=== PATIENT | male | born 1940 | race Caucasian/White ===

== ENCOUNTER 2017-06-23 13:05 | Observation (INO) | payer MEDICARE, SELFPAY ==
--- NOTE | 2017-06-23 15:11 | XR_ITS ---
XR chest 2V HISTORY: ITS.REASON: fever and respiratory infection ORDERING PHYSICIAN: Jamir Schumacher MD PATIENT AGE: 76 years COMPARISON: 05/14/2014 FINDINGS: The cardiomediastinal silhouette and pulmonary vascularity are within normal limits. The lungs are clear without infiltrates, suspicious nodules, or pleural effusions. Mild degenerative changes in the midthoracic spine.. IMPRESSION: No change with no acute finding
[2017-06-23 15:12] VITALS: BMI 28.1
[2017-06-23 15:35] LABS: Basophils # 0.1 K/mm3 (0-0.2); Basophils % 1.6 % (0.1-2.0); Eosinophils # 0.1 K/mm3 (0.0-0.4); Eosinophils % 2.3 % (0.1-12.0); Hemoglobin 13.2 g/dL (14.1-18.0); Lymphocytes # 1.3 K/mm3 (0.7-4.5); Lymphocytes % 27.3 K/mm3 (10-50); Mean Corpuscular HGB Conc 33.7 g/dL (31.8-35.4); Mean Corpuscular Hemoglobin 29.6 pg (27.0-31.2); Mean Corpuscular Volume 87.7 fl (80-94); Mean Platelet Volume 9.3 fl (7.4-10.4); Monocytes # 0.4 K/mm3 (0.1-1.0); Monocytes % 8.8 % (1.7-9.3); Neutrophils # 2.9 K/mm3 (1.8-7.8); Neutrophils % 59.9 % (37.0-80.0); Platelet Count 73 K/mm3 (142-424); Red Blood Count 4.44 M/mm3 (4.60-6.20); Red Cell Distribution Width 13.5 % (11.5-17.5); White Blood Count 4.9 K/mm3 (4.8-10.8)
--- NOTE | 2017-06-23 15:40 | HMH.HP ---
*Admission Date: 06/23/17 <Lucia Cleary 06/23/17 15:53> *Chief complaint: 1540 <Lucia Cleary 06/23/17 15:53> *History of present illness: Mr George is a 76 year old male with history of DM, HTN, OA and BPH who has not felt well for several weeks. He went to the [facility] 06/20/17 and was started on a Z pac, ear gtts for OM, and received injections of Depo Medrol and Rocephin as well as Tessalon Pearls for a persistant cough. He describes sweats and chilling, sputum production, SOB and headaches. He has also had some tightness in his chest. He describes minimal PO intake and has not been taking any of his meds. He presented to [facility] for evaluation on the day of admission. Due to his failure to improve as an outpatient and his dehydrated state, he was admitted for IVF and further evaluation and treatment. <Lucia Cleary 06/23/17 15:53> [facility] History Medical History: Reports:: Diabetes Mellitus Type 2, Hyperlipidemia, Hypertension Denies:: Cancer, MRSA <Lucia Cleary 06/23/17 15:53> Comment: BPH <Lucia Cleary 06/23/17 15:53> Laterality Cases: Bilateral: Myringotomy (Ear Tubes) <Lucia Cleary 06/23/17 15:53> Other Surgeries: Yes: Colonoscopy, Hernia Repair, Other (cholecystectomy) <Lucia Cleary 06/23/17 15:53> Amputation: No <Lucia Cleary 06/23/17 15:53> Fractures: No <Lucia Cleary 06/23/17 15:53> - *Social History Smoking Status: Never smoker <Lucia Cleary 06/23/17 15:53> Alcohol Intake: never <Lucia Cleary 06/23/17 15:53> Occupational Status: retired <Lucia Cleary 06/23/17 15:53> Household Members: spouse <Lucia Cleary 06/23/17 15:53> - Psychiatric History Expresses thoughts of harming self/others: None <Lucia Cleary 06/23/17 15:53> Suicide Plan Description: No Plan <ClearyLucia Hanh 06/23/17 15:53> *Family Hx:: No significant family history <Cleary,Lucia Hanh 06/23/17 15:53> Review of Systems - Constitutional Reports body ache(s), Reports chills, Reports excessive sweating, Reports fatigue, Reports headache(s), Reports night sweats, Reports weakness <[facility] 06/23/17 15:53> - ENT Reports dizziness, Reports headache(s) <Earline Clearyhy 06/23/17 15:53> - *Cardiovascular Denies chest pain, Denies generalized swelling, Denies leg swelling <[facility] 06/23/17 15:53> - *Respiratory Reports cough, Reports shortness of breath, Denies coughing up blood <[facility] 06/23/17 15:53> - *Gastrointestinal Reports loose stools, Denies change in stools, Denies coffee ground vomit, Denies black, tarry stools <Lucia Cleary 06/23/17 15:53> - *Genitourinary Denies difficulty urinating <Lucia Cleary 06/23/17 15:53> Meds Home Medications Medication Instructions Recorded Confirmed Type Aspirin [Aspirin 81mg EC Tab] 81 mg PO DAILY 06/23/17 06/23/17 History Azithromycin [Z-Siva 250mg Tab] 250 mg PO UD DOSE PK 06/23/17 06/23/17 History Betamethasone/Propylene Glyc 15 gm TP BID 06/23/17 06/23/17 History [Diprolene AF 0.05% Cream] Gabapentin [Gabapentin 300mg Cap] 300 mg PO HS 06/23/17 06/23/17 History Hydrocortisone Valerate 15 gm TP BID 06/23/17 06/23/17 History Insulin Glargine,Hum.rec.anlog 30 units SQ BID 06/23/17 06/23/17 History [Lantus Insulin 100units/mL 10mL vial] Meloxicam [Meloxicam] 7.5 mg PO DAILY 06/23/17 06/23/17 History Metformin HCl [Metformin 500mg 500 mg PO BID 06/23/17 06/23/17 History Tablet] Pravastatin Sodium [Pravachol 40mg 80 mg PO HS 06/23/17 06/23/17 History Tablet] Ramipril [Altace] 5 mg PO DAILY 06/23/17 06/23/17 History Tamsulosin HCl [Flomax 0.4mg 0.4 mg PO DAILY 06/23/17 06/23/17 History capsule] <Jamir Schumacher - 06/24/17 15:01> Allergies Allergy/AdvReac Type Severity Reaction Status Date / Time No Known Allergies Allergy Unverified 06/08/17 14:31 <Jamir Schumacher - 06/24/17 15:01> Exam Vital signs and Labs for Last 24 Hours: Temp Pulse Resp B
[2017-06-23 15:46] LABS: Alanine Aminotransferase 33 U/L (12-78); Albumin Level 3.4 gm/dL (3.4-5.0); Albumin/Globulin Ratio 0.9 (1.1-1.8); Alkaline Phosphatase 66 U/L (46-116); Anion Gap 10.4 mEq/L (5-15); Aspartate Amino Transferase 37 U/L (15-37); Bilirubin,Total 0.9 mg/dL (0.2-1.0); Blood Urea Nitrogen 19 mg/dL (7-18); Calcium 8.9 mg/dL (8.5-10.1); Carbon Dioxide 27 mmol/L (21.0-32.0); Chloride 100 mmol/L (98-107); Creatinine Clearance Estimated 76 mg/ml (0-300); Creatinine,Serum 1.15 mg/dL (0.70-1.30); Estimated Glomerular Filt Rate > 60 ml/min (>60); GFR (African American) > 60 ML/MIN (>60); Globulin 3.6 gm/dl (1.3-3.2); Glucose 340 mg/dL (74-106); Potassium 4.4 mmoL/L (3.5-5.1); Sodium 133 mmol/L (136-145)
--- NOTE | 2017-06-23 15:47 | P.HP_ITS ---
*Admission Date: 06/23/17 <Lucia Cleary 06/23/17 15:53> *Chief complaint: 1540 <Lucia Cleary 06/23/17 15:53> *History of present illness: Mr George is a 76 year old male with history of DM, HTN, OA and BPH who has not felt well for several weeks. He went to the [facility] 06/20/17 and was started on a Z pac, ear gtts for OM, and received injections of Depo Medrol and Rocephin as well as Tessalon Pearls for a persistant cough. He describes sweats and chilling, sputum production, SOB and headaches. He has also had some tightness in his chest. He describes minimal PO intake and has not been taking any of his meds. He presented to [facility] for evaluation on the day of admission. Due to his failure to improve as an outpatient and his dehydrated state, he was admitted for IVF and further evaluation and treatment. <Lucia Cleary 06/23/17 15:53> [facility] History Medical History: Reports:: Diabetes Mellitus Type 2, Hyperlipidemia, Hypertension Denies:: Cancer, MRSA <Lucia Cleary 06/23/17 15:53> Comment: BPH <Lucia Cleary 06/23/17 15:53> Laterality Cases: Bilateral: Myringotomy (Ear Tubes) <Lucia Cleary 15:53> Other Surgeries: Yes: Colonoscopy, Hernia Repair, Other (cholecystectomy) < Lucia Cleary 06/23/17 15:53> Amputation: No <Lucia Cleary 06/23/17 15:53> Fractures: No <Lucia Cleary 06/23/17 15:53> - *Social History Smoking Status: Never smoker <Lucia Cleary 06/23/17 15:53> Alcohol Intake: never <Lucia Cleary 06/23/17 15:53> Occupational Status: retired <Lucia Cleary 06/23/17 15:53> Household Members: spouse <Lucia Cleary 06/23/17 15:53> - Psychiatric History Expresses thoughts of harming self/others: None <Lucia Cleary 06/23/17 15: 53> Suicide Plan Description: No Plan <ClearyLucia Hanh 06/23/17 15:53> *Family Hx:: No significant family history <Cleary,Lcuia Hanh 06/23/17 15:53> Review of Systems - Constitutional Reports body ache(s), Reports chills, Reports excessive sweating, Reports fatigue, Reports headache(s), Reports night sweats, Reports weakness <[facility] 06/23/17 15:53> - ENT Reports dizziness, Reports headache(s) <Earline Clearyhy 06/23/17 15:53> - *Cardiovascular Denies chest pain, Denies generalized swelling, Denies leg swelling <[facility] 06/23/17 15:53> - *Respiratory Reports cough, Reports shortness of breath, Denies coughing up blood <[facility] 06/23/17 15:53> - *Gastrointestinal Reports loose stools, Denies change in stools, Denies coffee ground vomit, Denies black, tarry stools <Lucia Cleary 06/23/17 15:53> - *Genitourinary Denies difficulty urinating <Lucia Cleary 06/23/17 15:53> Meds Home Medications Medication Instructions Recorded Confirmed Type Aspirin [Aspirin 81mg EC Tab] 81 mg PO DAILY 06/23/17 06/23/17 History Azithromycin [Z-Siva 250mg Tab] 250 mg PO UD DOSE PK 06/23/17 06/23/17 History Betamethasone/Propylene Glyc 15 gm TP BID 06/23/17 06/23/17 History [Diprolene AF 0.05% Cream] Gabapentin [Gabapentin 300mg Cap] 300 mg PO HS 06/23/17 06/23/17 History Hydrocortisone Valerate 15 gm TP BID 06/23/17 06/23/17 History Insulin Glargine,Hum.rec.anlog 30 units SQ BID 06/23/17 06/23/17 History [Lantus Insulin 100units/mL 10mL vial] Meloxicam [Meloxicam] 7.5 mg PO DAILY 06/23/17 06/23/17 History Metformin HCl [Metformin 500mg 500 mg PO BID 06/23/17 06/23/17 History Tablet] Pravastatin Sodium [Pravachol 40mg 80 mg PO HS 06/23/17 06/23/17 History Tablet]
[2017-06-23 17:12] LABS: Microscopic, Urine URINE MICROSCOPIC (MICROSCOPIC)
[2017-06-23 17:16] LABS: Appearance,Urine CLEAR (Clear); Bilirubin,Urine Negative (Negative); Blood, Urine Negative (Negative); Color,Urine YELLOW (Yellow); Glucose,Urine (UA) 3+ (Negative); Ketones,Urine Negative (Negative); Leukocyte Esterase,Urine Negative (Negative); Nitrate,Urine Negative (Negative); PH,Urine 5.5 (5.0-8.5); Protein,Urine Negative (Negative); Specific Gravity, Urine 1.025 (1.005-1.030)
[2017-06-23 18:24] LABS: Bacteria,Urine Trace /lpf; Mucus,Urine 1+ /lpf; RBC,Urine Occasional #/hpf (0-3); WBC,Urine Occasional #/hpf (0-3)
--- NOTE | 2017-06-23 19:56 | PC.NURSE ---
HANDOFF REPORT TO KAI DOUGHERTY, MSN, RN
[2017-06-23 20:00] VITALS: O2SAT 94
[2017-06-23 20:15] VITALS: BP 141/72; PULSE 69; RESP 18; TEMP 36.8; O2SAT 94
[2017-06-23 22:43] LABS: POC Glucose,Bedside 352 mg/dL
--- NOTE | 2017-06-24 03:59 | PC.NURSE ---
no changes noted from previous assessment, pt simply states I just don't feel good , pt has rested well this shift, breath sounds are clear slightly diminished in the bases, bowel sounds are active x4, family brought home medications without bottles or packaging for proper identification, education provided to family to bring medications in packaging for pharmacy to dispense so the pt can take his own home medications, medications were left in pt room and are currently locked in the medication drawer, no acute distress noted at this time, safety measures in place, call light within reach, will continue to monitor.
[2017-06-24 04:26] VITALS: BP 119/62; PULSE 68; RESP 18; TEMP 36.9
[2017-06-24 06:22] LABS: POC Glucose,Bedside 196 mg/dL
[2017-06-24 07:10] LABS: Anion Gap 12.1 mEq/L (5-15); Blood Urea Nitrogen 15 mg/dL (7-18); Carbon Dioxide 25 mmol/L (21.0-32.0); Chloride 103 mmol/L (98-107); Creatinine Clearance Estimated 88 mg/ml (0-300); Creatinine,Serum 0.97 mg/dL (0.70-1.30); Estimated Glomerular Filt Rate > 60 ml/min (>60); GFR (African American) > 60 ML/MIN (>60); Glucose 201 mg/dL (74-106); Potassium 4.1 mmoL/L (3.5-5.1); Sodium 136 mmol/L (136-145)
[2017-06-24 07:13] LABS: Basophils # 0.1 K/mm3 (0-0.2); Basophils % 1.4 % (0.1-2.0); Eosinophils # 0.1 K/mm3 (0.0-0.4); Eosinophils % 3.9 % (0.1-12.0); Hematocrit 35.2 % (42.0-52.0); Hemoglobin 11.9 g/dL (14.1-18.0); Lymphocytes # 1.2 K/mm3 (0.7-4.5); Lymphocytes % 32.4 K/mm3 (10-50); Mean Corpuscular HGB Conc 33.7 g/dL (31.8-35.4); Mean Corpuscular Hemoglobin 29.2 pg (27.0-31.2); Mean Corpuscular Volume 86.5 fl (80-94); Mean Platelet Volume 8.2 fl (7.4-10.4); Monocytes # 0.3 K/mm3 (0.1-1.0); Monocytes % 8.8 % (1.7-9.3); Neutrophils % 53.5 % (37.0-80.0); Platelet Count 68 K/mm3 (142-424); Red Blood Count 4.07 M/mm3 (4.60-6.20); Red Cell Distribution Width 13.4 % (11.5-17.5); White Blood Count 3.7 K/mm3 (4.8-10.8)
[2017-06-24 08:15] VITALS: BP 132/67; PULSE 66; RESP 18; TEMP 37.4; O2SAT 96
--- NOTE | 2017-06-24 08:31 | HMH.ACPN ---
Internal Medicine - PN: Subj *Date: 06/24/17 *Time: 08:31 Interval history: Patient states he is not feeling well today. He is very fatigued. He has been coughing and does have some wheezing. All he wants to do sleep. He has not been eating. Exam Vital signs and Labs for Last 24 Hours: Temp Pulse Resp BP Pulse Ox 99.3 F 66 18 132/67 96 06/24/17 08:15 06/24/17 08:15 06/24/17 08:15 06/24/17 08:15 06/24/17 08:15 Short CBC 06/23/17 06/24/17 Range/Units 15:25 06:35 WBC 4.9 3.7 L (4.8-10.8) K/mm3 Hgb 13.2 L 11.9 L (14.1-18.0) g/dL Hct 39.0 L 35.2 L (42.0-52.0) % Plt Count 73 L 68 L (142-424) K/mm3 BMP 06/23/17 06/24/17 15:25 06:35 Sodium 133 L 136 Potassium 4.4 4.1 Chloride 100 103 Carbon Dioxide 27 25 BUN 19 H 15 Creatinine 1.15 0.97 Glucose 340 H 201 H D Calcium 8.9 Liver Function 06/23/17 Range/Units 15:25 Total Bilirubin 0.9 (0.2-1.0) mg/dL AST 37 (15-37) U/L ALT 33 (12-78) U/L Alkaline Phosphatase 66 (46-116) U/L Albumin 3.4 (3.4-5.0) gm/dL Urine 06/23/17 Range/Units 17:00 Urine Color Yellow (Yellow) Urine Appearance Clear (Clear) Urine pH 5.5 (5.0-8.5) Ur Specific [place] 1.025 (1.005-1.030) Urine Protein Negative (Negative) Urine Glucose (UA) 3+ (Negative) I & O for Last 24 hours: Intake & Output 06/21/17 06/22/17 06/23/17 06/24/17 11:59 11:59 11:59 11:59 Intake Total 1120 / 1120 Output Total 600 / 600 Balance 520 / 520 Comments: Does not appear to feel well - *Routine Respiratory Exam Present: wheezes (bilaterally). Absent: rales - *Routine Cardiovascular Exam Present: RRR - *Routine Abdominal Exam Present: soft, normoactive bowel sounds. Absent: tenderness - *Routine Extremities Exam Absent: edema Assessment and Plan (1) Respiratory infection Current visit: Yes Status: Acute Category: Medical Code(s): J98.8 - Other specified respiratory disorders (2) Dehydration Current visit: Yes Status: Acute Category: Medical Code(s): E86.0 - Dehydration (3) Diabetes mellitus, type 2 Current visit: Yes Status: Acute Category: Medical Code(s): E11.9 - Type 2 diabetes mellitus without complications (4) Fever Current visit: Yes Status: Acute Category: Medical Code(s): R50.9 - Fever, unspecified - Assessment and plan all Dx Assessment and Plan for all problems:: Will get another CXR today as well as a PCR panel. Pt seen and examined. Likely has viral syndrome. Will check PCR panel and repeat CXR after he has been hydrated.
--- NOTE | 2017-06-24 08:39 | XR_ITS ---
XR chest 2V HISTORY: Shortness of breath and wheezing with weakness ITS.REASON: wheezing ORDERING PHYSICIAN: Jamir Schumacher MD PATIENT AGE: 76 years COMPARISON: 06/23/2017 FINDINGS: The cardiomediastinal silhouette and pulmonary vascularity are within normal limits. There is evidence of old granulomatous disease. No lobar consolidation or collapse. Aside from granulomas, lungs are clear. No effusions or infiltrates.. Degenerative change thoracic spine. IMPRESSION: No change with no acute finding
--- NOTE | 2017-06-24 09:59 | P.CONPHA_ITS ---
[facility] Pharmacy VTE Monitoring - Patient Demographics Admission date: 06/23/17 Report Date: 06/24/17 Time: 09:57 Allergies/Adverse Reactions: No Known Allergies Allergy (Unverified 06/08/17 14:31) Height: 1.91 m Weight: 102.143 kg Patient Problems: Current Active Problems Dehydration (Acute) Fever (Acute) Diabetes mellitus, type 2 (Acute) Respiratory infection (Acute) - VTE Risk Labs: VTE Related Lab Results Hgb 11.9 g/dL (14.1-18.0) L 06/24/17 06:35 Hct 35.2 % (42.0-52.0) L 06/24/17 06:35 Plt Count 68 K/mm3 (142-424) L 06/24/17 06:35 BUN 15 mg/dL (7-18) 06/24/17 06:35 Creatinine 0.97 mg/dL (0.70-1.30) 06/24/17 06:35 Estimated Creat Clear 88 mg/ml (0-300) 06/24/17 06:35 Was VTE Risk Assessment Performed: Yes VTE Score: 2 VTE Risk Level: Low Risk - Prophylaxis VTE Prophylaxis Ordered?: Yes Types of VTE Prophylaxis: TEDS Knee High, Not Applicable Location of Applied Device: Not Applicable
[2017-06-24 10:57] LABS: Adenovirus,PCR Not Detected (NotDetected); Bordetella Pertussis Not Detected (NotDetected); Chlamydophila Pneumoniae, PCR Not Detected (NotDetected); Coronavirus 229E Not Detected (NotDetected); Coronavirus NL63 Not Detected (NotDetected); Coronavirus OC43 Not Detected (NotDetected); Coronovirus HKU1,PCR Not Detected (NotDetected); Human Metapneumovirus Not Detected (NotDetected); Influenza A, PCR Not Detected (NotDetected); Influenza AH1, 2009 Not Detected (NotDetected); Influenza AH1, PCR Not Detected (NotDetected); Influenza AH3,PCR Not Detected (NotDetected); Influenza B, PCR Not Detected (NotDetected); Mycoplasma Pneumoniae, PCR Not Detected (NotDected); Parainfluenza 1, PCR Not Detected (NotDetected); Parainfluenza 2, PCR Not Detected (NotDetected); Parainfluenza 3, PCR Not Detected (NotDetected); Parainfluenza 4, PCR Not Detected (NotDetected); Respiratory Syncytial Virus Not Detected (NotDetected); Rhinovirus/Enterovirus Not Detected (NotDetected)
[2017-06-24 12:24] LABS: POC Glucose,Bedside 184 mg/dL
[2017-06-24 16:38] VITALS: BP 144/76; PULSE 66; RESP 16; TEMP 36.9; O2SAT 91
--- NOTE | 2017-06-24 18:59 | PC.NURSE ---
Pt has tolerated well this shift, no complaints voiced to nurse. No changes since earlier assessment. Pt's home medications brought in late this am, pharmacy verified medication and called Dr. Schumacher for orders regarding restarting home medications. Dr. Schumacher did not reorder any of patient's home medications, nurse will talk to Dr. Schumacher in the morning and address home medications. Pt is in bed, call light within reach, will continue to monitor.
[2017-06-24 20:00] VITALS: BP 143/72; PULSE 69; RESP 20; TEMP 36.7; O2SAT 95
[2017-06-25 00:20] LABS: POC Glucose,Bedside 246 mg/dL
[2017-06-25 00:38] LABS: POC Glucose,Bedside 252 mg/dL
--- NOTE | 2017-06-25 04:00 | PC.NURSE ---
no changes from previous assessment noted, pt has been more ambulatory than previous day,tolerating diet and po fluids well, pt still states he is not feeling well,denies pain,vss, breath sounds are slightly diminished, bowel sounds are active x4, no acute distress noted at this time, call light in reach, will continue to monitor.
[2017-06-25 05:14] VITALS: BP 140/67; PULSE 64; RESP 20; TEMP 36.7; O2SAT 95
[2017-06-25 06:36] LABS: POC Glucose,Bedside 170 mg/dL
[2017-06-25 08:00] VITALS: BP 136/68; PULSE 66; RESP 20; TEMP 37.3; O2SAT 94
--- NOTE | 2017-06-25 08:38 | P.PN_ITS ---
Internal Medicine - PN: Subj *Date: 06/25/17 *Time: 08:35 Interval history: Patient states he is still not feeling well today. He is very fatigued. He has been coughing and does have some wheezing. All he wants to do sleep. He did eat a small amount today. Exam Vital signs and Labs for Last 24 Hours: Temp Pulse Resp BP Pulse Ox 98.0 F 64 20 140/67 95 06/25/17 05:14 06/25/17 05:14 06/25/17 05:14 06/25/17 05:14 06/25/17 05:14 I & O for Last 24 hours: Intake & Output 06/22/17 06/23/17 06/24/17 06/25/17 11:59 11:59 11:59 11:59 Intake Total 1120 / 1120 2943 / 2943 Output Total 600 / 600 800 / 800 Balance 520 / 520 2143 / 2143 no acute distress - *Routine Respiratory Exam Present: wheezes (faint, improved from yesterday) - *Routine Cardiovascular Exam Present: RRR - *Routine Abdominal Exam Present: soft, normoactive bowel sounds. Absent: tenderness - *Routine Extremities Exam Absent: edema Assessment and Plan (1) Respiratory infection Current visit: Yes Status: Acute Category: Medical Code(s): J98.8 - Other specified respiratory disorders (2) Dehydration Current visit: Yes Status: Acute Category: Medical Code(s): E86.0 - Dehydration (3) Diabetes mellitus, type 2 Current visit: Yes Status: Acute Category: Medical Code(s): E11.9 - Type 2 diabetes mellitus without complications (4) Fever Current visit: Yes Status: Acute Category: Medical Code(s): R50.9 - Fever , unspecified - Assessment and plan all Dx Assessment and Plan for all problems:: Repeat CXR showed nothing acute. Respiratory panel was negative. Will discuss further care with Dr. Schumacher. He is not feeling much better. He clinically looks like the flu. Will add Tamiflu empirically and give dose of Solumedrol.
[2017-06-25 11:26] LABS: POC Glucose,Bedside 284 mg/dL
[2017-06-25 15:34] VITALS: BMI 28.0
[2017-06-25 16:56] VITALS: BP 147/78; PULSE 81; RESP 18; O2SAT 94
--- NOTE | 2017-06-25 19:15 | PC.NURSE ---
REPORT RECEIVED FROM WENDIE.JOSEPH, PT FULL CODE
[2017-06-25 20:00] VITALS: BP 135/68; PULSE 76; RESP 17; RESP 18; TEMP 36.4; O2SAT 93
[2017-06-26 04:00] VITALS: BP 142/69; PULSE 67; RESP 16; TEMP 36.2
[2017-06-26 04:01] LABS: POC Glucose,Bedside 326 mg/dL
--- NOTE | 2017-06-26 05:09 | PC.NURSE ---
PT BREATH SOUNDS CLEAR, BUT DIMINISHED. IV SECURE AND PATENT, CONTINUES ON IV FLUIDS AND ABX. SLEPT LONG INTERVALS. PT STABLE. WILL CONTINUE TO MONITOR. REPORT TO BE GIVEN TO ONCOMING NURSE.
[2017-06-26 05:28] LABS: POC Glucose,Bedside 370 mg/dL
[2017-06-26 07:11] LABS: Basophils % 0.2 % (0.1-2.0); Eosinophils % 0.4 % (0.1-12.0); Hematocrit 35.3 % (42.0-52.0); Hemoglobin 11.6 g/dL (14.1-18.0); Lymphocytes % 16.3 K/mm3 (10-50); Mean Corpuscular Hemoglobin 29.1 pg (27.0-31.2); Mean Corpuscular Volume 88.3 fl (80-94); Mean Platelet Volume 9.5 fl (7.4-10.4); Monocytes # 0.3 K/mm3 (0.1-1.0); Neutrophils # 4.6 K/mm3 (1.8-7.8); Platelet Count 74 K/mm3 (142-424); Red Blood Count 3.99 M/mm3 (4.60-6.20); Red Cell Distribution Width 14.1 % (11.5-17.5); White Blood Count 5.8 K/mm3 (4.8-10.8)
--- NOTE | 2017-06-26 07:23 | PC.NURSE ---
Report given to Johnathan Young WC/SRNA
--- NOTE | 2017-06-26 07:38 | HMH.ACPN ---
Internal Medicine - PN: Subj Interval history: Rested better last night. Less cough. Still weak when up. Appetite better Exam Vital signs and Labs for Last 24 Hours: Temp Pulse Resp BP Pulse Ox 97.2 F L 67 16 142/69 93 L 06/26/17 04:00 06/26/17 04:00 06/26/17 04:00 06/26/17 04:00 06/25/17 20:00 Short CBC 06/26/17 Range/Units 06:50 WBC 5.8 D (4.8-10.8) K/mm3 Hgb 11.6 L (14.1-18.0) g/dL Hct 35.3 L (42.0-52.0) % Plt Count 74 L (142-424) K/mm3 I & O for Last 24 hours: Intake & Output 06/23/17 06/24/17 06/25/17 06/26/17 11:59 11:59 11:59 11:59 Intake Total 1120 / 1120 3183 / 3183 2225 / 2225 Output Total 600 / 600 800 / 800 Balance 520 / 520 2383 / 2383 2225 / 2225 no acute distress - *Routine Respiratory Exam Comments: few rhonchi, no wheezes - *Routine Cardiovascular Exam Present: RRR - *Routine Abdominal Exam Present: soft. Absent: tenderness Assessment and Plan (1) Flu syndrome Current visit: Yes Status: Acute Category: Medical Code(s): J11.1 - Influenza due to unidentified influenza virus with other respiratory manifestations (2) Dehydration Current visit: Yes Status: Acute Category: Medical Code(s): E86.0 - Dehydration (3) Diabetes mellitus, type 2 Current visit: Yes Status: Acute Category: Medical Code(s): E11.9 - Type 2 diabetes mellitus without complications - Assessment and plan all Dx Assessment and Plan for all problems:: Clinically, he has the flu although test was negative. He has responded to Tamiflu. Encouraged increased activity. Possible discharge home tomorrow.
[2017-06-26 08:00] VITALS: BP 115/65; PULSE 80; RESP 18; TEMP 36.8; O2SAT 95
[2017-06-26 16:34] VITALS: BP 155/61; PULSE 70; RESP 18; TEMP 36.7; O2SAT 97
--- NOTE | 2017-06-26 17:29 | PC.NURSE ---
NO CHANGE IN PATIENT ON MY SHIFT TODAY, DENIES ANY PAIN, WILL CONTINUE TO MONITOR.
--- NOTE | 2017-06-26 18:57 | PC.NURSE ---
REPORT GIVEN TO TRAY ASHRAF RN
--- NOTE | 2017-06-26 19:15 | PC.NURSE ---
REPORT RECEIVED FROM NAVA
[2017-06-26 20:13] VITALS: BP 141/78; PULSE 66; RESP 16; TEMP 36.4; O2SAT 97
[2017-06-26 21:45] VITALS: O2SAT 97
[2017-06-27 02:43] LABS: POC Glucose,Bedside 272 mg/dL
[2017-06-27 02:43] LABS: POC Glucose,Bedside 346 mg/dL
[2017-06-27 02:43] LABS: POC Glucose,Bedside 398 mg/dL
[2017-06-27 02:47] LABS: POC Glucose,Bedside 301 mg/dL
[2017-06-27 04:20] VITALS: BP 140/57; PULSE 63; RESP 18; TEMP 36.4; O2SAT 96
--- NOTE | 2017-06-27 06:01 | PC.NURSE ---
TOTALS NOT CLEARED ON PREVIOUS SHIFT, THIS IS 24HR TOTAL
[2017-06-27 06:32] LABS: POC Glucose,Bedside 166 mg/dL
--- NOTE | 2017-06-27 06:53 | PC.NURSE ---
PT ALERT AND ORIENTED. UP IN CHAIR BEGINNING OF SHIFT. SLEPT MOST OF SHIFT. IV SECURE AND PATENT. LUNGS CLEAR AT THIS TIME. NO COMPLAINTS OF PAIN OR DISCOMFORT REPORTED. PT STABLE. WILL CONTINUE TO MONITOR. REPORT TO BE GIVEN TO ONCOMING NURSE.
--- NOTE | 2017-06-27 07:25 | PC.NURSE ---
REPORT GIVEN TO Johnathan DEAN WC/SRNA
[2017-06-27 08:00] VITALS: O2SAT 97
--- NOTE | 2017-06-27 08:02 | HMH.ACPN ---
Internal Medicine - PN: Subj *Date: 06/27/17 *Time: 08:04 Interval history: He is feeling better but not well. He wants to go home. Has been up in the room with no difficulty. Still has a dry cough Exam Vital signs and Labs for Last 24 Hours: Temp Pulse Resp BP Pulse Ox 97.6 F 63 18 140/57 96 06/27/17 04:20 06/27/17 04:20 06/27/17 04:20 06/27/17 04:20 06/27/17 04:20 I & O for Last 24 hours: Intake & Output 06/24/17 06/25/17 06/26/17 06/27/17 11:59 11:59 11:59 11:59 Intake Total 1120 / 1120 3183 / 3183 2585 / 2585 2741 / 2741 Output Total 600 / 600 800 / 800 Balance 520 / 520 2383 / 2383 2585 / 2585 2741 / 2741 Comments: sitting up in chair eating breakfast - *Routine Respiratory Exam Comments: few upper airway rhonchi - *Routine Cardiovascular Exam Present: RRR - *Routine Abdominal Exam Present: soft. Absent: tenderness, distended Assessment and Plan (1) Flu syndrome Current visit: Yes Status: Acute Category: Medical Code(s): J11.1 - Influenza due to unidentified influenza virus with other respiratory manifestations (2) Dehydration Current visit: Yes Status: Acute Category: Medical Code(s): E86.0 - Dehydration (3) Diabetes mellitus, type 2 Current visit: Yes Status: Acute Category: Medical Code(s): E11.9 - Type 2 diabetes mellitus without complications - Assessment and plan all Dx Assessment and Plan for all problems:: He is much improved and stable to be discharged home on Tamiflu and Tessalon. Will f/u in 5 days.
[2017-06-27 08:30] VITALS: BP 109/63; PULSE 73; RESP 18; TEMP 36.6; O2SAT 96
[2017-06-27 10:03] VITALS: O2SAT 96
--- NOTE | 2017-06-29 17:54 | HMH.DCSUM ---
General - General Admission date: 06/23/17 Discharge date: 06/27/17 HPI HPI: Mr George is a 76 year old male with history of DM, HTN, OA and BPH who has not felt well for several weeks. He went to the [facility] 06/20/17 and was started on a Z pack, ear gtts for OM, and received injections of Depo Medrol and Rocephin as well as Tessalon Pearls for a persistant cough. He describes sweats and chilling, sputum production, SOB and headaches. He has also had some tightness in his chest. He describes minimal PO intake and has not been taking any of his meds. He presented to [facility] for evaluation on the day of admission. Due to his failure to improve as an outpatient and his dehydrated state, he was admitted for IVF and further evaluation and treatment. Objective Vital signs: Temp Pulse Resp BP Pulse Ox 97.9 F 73 18 109/63 96 06/27/17 08:30 06/27/17 08:30 06/27/17 08:30 06/27/17 08:30 06/27/17 10:03 Narrative: *Routine HEENT Exam Head: Present: normocephalic, atraumatic Eye: Present: PERRL. Absent: conjunctival icterus, scleral injection ENT: Present: mucous membranes dry, oropharynx clear - *Routine Neck Exam Present: supple, full ROM. Absent: carotid bruit, lymphadenopathy, thyromegaly > - *Routine Respiratory Exam Comments: scattered crackles - *Routine Cardiovascular Exam Present: RRR - *Routine Abdominal Exam Present: soft, normoactive bowel sounds. Absent: tenderness, distended - *Routine Extremities Exam Absent: edema, calf tenderness - *Routine Neurological Exam Present: alert Hospital Course Hospital Course: The patient had a CXR showing nothing acute. He continued to feel poorly. He was hydrated and another CXR was ordered along with a PCR respiratory panel. His second CXR came back negative as did his respiratory panel. He clinically looked like the flu therefore tamiflu was started empirically and he was given a dose of Solumedrol. He improved with the tamiflu and steroids and was stable to be discharged home. DS: Diagnosis - Discharge Diagnosis (1) Respiratory infection Status: Deleted (2) Dehydration Status: Acute (3) Diabetes mellitus, type 2 Status: Acute (4) Fever Status: Acute Meds Home Medications Medication Instructions Recorded Confirmed Type Aspirin [Aspirin 81mg EC Tab] 81 mg PO DAILY 06/23/17 06/23/17 History Azithromycin [Z-Siva 250mg Tab] 250 mg PO UD DOSE PK 06/23/17 06/23/17 History Betamethasone/Propylene Glyc 15 gm TP BID 06/23/17 06/23/17 History [Diprolene AF 0.05% Cream] Gabapentin [Gabapentin 300mg Cap] 300 mg PO HS 06/23/17 06/23/17 History Hydrocortisone Valerate 15 gm TP BID 06/23/17 06/23/17 History Insulin Glargine,Hum.rec.anlog 30 units SQ BID 06/23/17 06/23/17 History [Lantus Insulin 100units/mL 10mL vial] Meloxicam 7.5 mg PO DAILY 06/23/17 06/23/17 History Metformin HCl [Metformin 500mg 500 mg PO BID 06/23/17 06/23/17 History Tablet] Pravastatin Sodium [Pravachol 40mg 80 mg PO HS 06/23/17 06/23/17 History Tablet] Ramipril [Altace] 5 mg PO DAILY 06/23/17 06/23/17 History Tamsulosin HCl [Flomax 0.4mg 0.4 mg PO DAILY 06/23/17 06/23/17 History capsule] Allergies Allergy/AdvReac Type Severity Reaction Status Date / Time No Known Allergies Allergy Unverified 06/08/17 14:31 Disposition Disposition: Home, Self-Care
== END 2017-06-27 10:00 | disposition home or self-care (01) ==
PROVIDERS: Nurse Practitioner Family; Physician Assistant; Admitting Provider Family Medicine; PCP Family Medicine; Visit Provider Family Medicine
DX: J11.1 Influenza due to unidentified influenza virus with other respiratory manifestations (principal); E86.0 Dehydration; I10 Essential (primary) hypertension; E11.9 Type 2 diabetes mellitus without complications; R53.81 Other malaise
CPT/HCPCS: 36415; 71046; 80048; 80053; 81001; 82962; 85025; 87486; 87581; 87633; 87798; G0378

== ENCOUNTER → 2018-09-21 09:18 | Outpatient (CLI) | payer MEDICARE, SELFPAY ==
[2018-09-21 10:35] LABS: Alanine Aminotransferase 31 U/L (12-78); Albumin Level 3.3 gm/dL (3.4-5.0); Alkaline Phosphatase 59 U/L (46-116); Anion Gap 12.6 mEq/L (5-15); Aspartate Amino Transferase 33 U/L (15-37); Bilirubin,Total 0.9 mg/dL (0.2-1.0); Blood Urea Nitrogen 18 mg/dL (7-18); Carbon Dioxide 28 mmol/L (21.0-32.0); Chloride 107 mmol/L (98-107); Chol/HDL Ratio 4.5 (1-3.5); Cholesterol 161 mg/dL (140-200); Creatinine,Serum 1.08 mg/dL (0.70-1.30); Estimated Glomerular Filt Rate 66 ml/min (>60); GFR (African American) 80 ML/MIN (>60); Globulin 3.4 gm/dl (1.3-3.2); Glucose 139 mg/dL (74-106); HDL Cholesterol 36 mg/dL (27-67); LDL Cholesterol 104 mg/dL (0-130); Potassium 4.6 mmoL/L (3.5-5.1); Sodium 143 mmol/L (136-145); Total Protein,Serum 6.7 gm/dL (6.4-8.2); Triglycerides 107 mg/dL (30-200); VLDL Cholesterol 21 mg/dL (0-40)
[2018-09-21 12:34] LABS: Hemoglobin A1C 9.2 % (0.0-7.0)
== END ==
PROVIDERS: Visit Provider Family Medicine
DX: E11.65 Type 2 diabetes mellitus with hyperglycemia (principal); I10 Essential (primary) hypertension; E78.5 Hyperlipidemia, unspecified
CPT/HCPCS: 36415; 80053; 80061; 83036

== ENCOUNTER → 2018-10-31 12:05 | Outpatient (CLI) | payer MEDICARE, SELFPAY ==
--- NOTE | 2018-10-31 12:13 | XR_ITS ---
XR hip LT 2-3V w/pelvis HISTORY: Left hip pain ITS.REASON: ARTHRITIS ORDERING PHYSICIAN: Lucia Cleary APRN PATIENT AGE: 78 years COMPARISON: None FINDINGS: There are mild osteoarthritic changes of both hips. No fracture or dislocation is evident. No lytic or blastic change is apparent. There is a small area of cortical protrusion in the mid aspect of the left femoral neck imperially which may be seen with femoral acetabular impingement. There is mild hypertrophic change of the acetabular roof laterally. 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
--- NOTE | 2018-10-31 12:13 | XR_ITS ---
EXAM: XR thoracic spine 3V HISTORY: ITS.REASON: BACK STRAIN Comparison: None FINDINGS: There is minimal upper thoracic scoliosis convex left. Mild multilevel degenerative disc disease is present in the mid and lower thoracic spine. No acute fracture or dislocation. No lytic or blastic change. IMPRESSION: Degenerative changes thoracic spine, no acute finding
--- NOTE | 2018-10-31 12:13 | XR_ITS ---
EXAM: XR lumbar spine min 4V HISTORY: ITS.REASON: BACK STRAIN ORDERING PHYSICIAN: Lucia Cleary APRN PATIENT AGE: 78 years COMPARISON: None FINDINGS: Multilevel degenerative disc disease from L2 to S1. No fracture or dislocation. No lytic or blastic change. Mild facet arthritic changes are present at L4 and L5. IMPRESSION: Degenerative changes lumbar spine
--- NOTE | 2018-10-31 12:13 | XR_ITS ---
XR knee LT 3V HISTORY: Left knee pain ITS.REASON: ARTHROPATHY ORDERING PHYSICIAN: Lucia Cleary APRN PATIENT AGE: 78 years COMPARISON: 03/16/2017 FINDINGS: There are mild to moderate osteoarthritic changes involving the medial compartment which has slightly progressed compared to the previous exam. Vascular calcification noted at the proximal leg. No fracture or dislocation. No lytic or blastic change. IMPRESSION: [id number] osteoarthritis of the left knee which has slightly progressed compared to the previous
== END ==
PROVIDERS: PCP Family Medicine; Visit Provider Nurse Practitioner Family
DX: S39.012A Strain of muscle, fascia and tendon of lower back, initial encounter (principal); M16.12 Unilateral primary osteoarthritis, left hip
CPT/HCPCS: 72072; 72110; 73502; 73562

== ENCOUNTER 2018-11-18 09:00 | Outpatient (RCR) | payer MEDICARE, SELFPAY | END 2018-11-18 09:05 | disposition home or self-care (01) | LOC: PT 09:00 | PROVIDERS: Visit Provider Nurse Practitioner Family | DX: M51.36 Other intervertebral disc degeneration, lumbar region (principal) | CPT/HCPCS: 97110; 97163 ==

== ENCOUNTER 2019-02-22 18:03 | Inpatient (IN) ==
--- NOTE | 2019-02-22 19:49 | Emergency Department Note ---
ED Disposition Clinical Impression: Abdominal pain Disposition: Admitted as Observation Condition on Discharge: Fair Instructions: DI for Acute Abdomen Referrals: Jamir Schumacher MD [Primary Care Provider] - Time of Disposition: 22:04 - Critical Care Critical Care Time: No Attestation: On 02/22/19, the high probability of a clinically significant, sudden or life threatening deterioration of the following system(s) required my full and direct attention, intervention and personal management. The time I documented below is in addition to time spent performing reported procedures but includes the following listed in this critical care notation. Medical Decision Making - Medical Records Medical records reviewed: Yes: I reviewed the patient's medical records. - [place] Inquiry Pt receiving controlled substance: No G[place] was queried for this patient: No Vital Signs: 02/22/19 18:03 02/22/19 18:06 02/22/19 20:33 Temperature 98.6 F 98.6 F Temperature Source Oral Oral Pulse Rate [Left Brachial] 84 84 80 Respiratory Rate 18 18 18 Blood Pressure [Left Arm] 125/65 125/65 120/64 Blood Pressure Mean [Left Arm] 85 85 82 Blood Pressure Source [Left Arm] Automatic Cuff Automatic Cuff Automatic Cuff Blood Pressure Position [Left Arm] Sitting Sitting Sitting 02 Sat by Pulse Oximetry 97 97 97 Oxygen Delivery Method Room Air Room Air Room Air 02/22/19 21:30 Temperature Temperature Source Pulse Rate [Left Brachial] 84 Respiratory Rate 18 Blood Pressure [Left Arm] 125/63 Blood Pressure Mean [Left Arm] 83 Blood Pressure Source [Left Arm] Automatic Cuff Blood Pressure Position [Left Arm] Sitting 02 Sat by Pulse Oximetry 97 Oxygen Delivery Method Room Air - Lab Data Lab results reviewed: Yes: I reviewed the patient's lab results. Lab Results 02/22/19 19:20: WBC 8.9, RBC 4.05 L, Hgb 12.0 L, Hct 36.2 L, MCV 89.4, MCH 29.7, MCHC 33.2, RDW 14.1, Plt Count 106 L, MPV 8.1, Neut % (Auto) 84.2 H, Lymph % (Auto) 8.5 L, [place] % (Auto) 5.5, Eos % (Auto) 1.3, Baso % (Auto) 0.5, Neut # (Auto) 7.5, Lymph # (Auto) 0.8, [place] # (Auto) 0.5, Eos # (Auto) 0.1, Baso # (Auto) 0.0 02/22/19 19:20: Sodium 142, Potassium 4.7, Chloride 107, Carbon Dioxide 23, Anion Gap 16.7 H, BUN 32 H, Creatinine 1.28, Estimated Creat Clear 65, Estimated GFR 54 L, Est GFR ( Amer) 65, Glucose 243 H, Calcium 9.7, Total Bilirubin 1.1 H, AST 47 H, ALT 40, Alkaline Phosphatase 66, Troponin I < 0.02, Total Protein 7.4, Albumin 3.7, Globulin 3.7 H, Albumin/Globulin Ratio 1.0 L, Amylase 68, Lipase 223 02/22/19 19:20: ESR 22 H 02/22/19 19:20: C-Reactive Protein 0.3 02/22/19 19:45: Urine Color [place], Urine Appearance Clear, Urine pH 5.5, Ur Specific [place] >= 1.030, Urine Protein Negative, Urine Glucose (UA) Trace, Urine Ketones Negative, Urine Blood Negative, Urine Nitrate Negative, Urine Bilirubin Negative, Urine Urobilinogen 1.0, Ur Leukocyte Esterase Negative, Urine WBC Occasional, Ur Squamous Epith Cells Occasional, Urine Bacteria Trace 02/22/19 20:00: Stool Occult Blood Negative 02/22/19 20:50: Lactate 2.4 H Result diagrams: 02/22/19 19:20 02/22/19 19:20 Orders (Tests/Meds): ED MEDICATIONS Generic Name Dose Route Start Last Admin Trade Name Freq PRN Reason Stop Dose Admin Sodium Chloride 1,000 mls @ 999 mls/hr 02/22/19 19:15 02/22/19 19:27 Sod Chlor 0.9% 1000ml Bag IV 02/22/19 20:15 999 mls/hr .Q1H1M HORTENCIA Administration Discontinued Medications Generic Name Dose Route Start Last Admin Trade Name Freq PRN Reason Stop Dose Admin Hydromorphone HCl 1 mg 02/22/19 19:10 02/22/19 19:26 Dilaudid 2mg/Ml Syringe IV 02/22/19 19:11 1 mg ONCE ONE Administration Hydromorphone HCl 1 mg 02/22/19 19:51 02/22/19 19:52 Dilaudid 2mg/Ml Syringe IV 02/22/19 19:52 1 mg ONCE ONE Administration Hydromorphone HCl 1 mg 02/22/19 21:23 02/22/19 21:25 Dilaudid 2mg/Ml Syringe IV 02/22/19 21:24 1 mg ONCE ONE Administration Ketorolac Tromethamine 30 mg 02/22/19 18:39 02/22/19 18:50 Toradol 30mg/Ml Vial IV 02/22/19 18:40 30 mg ONCE ONE Administration Ondansetron HCl 4 mg 02/22/19 18:39 02/22/19 18:50 Zofran 4mg/2ml Vial IV 02/22/19 18:40 4 mg ONCE ONE Administration ORDERS Category Date Time Status CT abdomen pelvis wo con Stat Cat Scan 02/22/19 18:16 Taken Blood Culture Stat Micro 02/22/19 20:50 Received - Physician Consults Physician Consulted: [place] Time: 22:03 Reason -: Admission General Adult HPI - General Chief complaint: Abdominal Pain Stated complaint: Stomach pain Time Seen by Provider: 02/22/19 19:50 Mode of Arrival: Family Vehicle Source of Information: Spouse Limitations: No Limitations Description of Symptoms (Recalled from ER Triage Doc. by RN): Pts spouse reports stomach pain for about the past 3 days. Reports that he needed help getting off the couch from lying position to standing. Spouse also reports pain in his lower back and nausea. - Related Data Home Medications Medication Instructions Recorded Confirmed Aspirin [Aspirin 81mg EC Tab] 81 mg PO DAILY 06/23/17 02/22/19 Betamethasone/Propylene Glyc 15 gm TP BID 06/23/17 02/22/19 [Diprolene AF 0.05% Cream] Gabapentin [Gabapentin 300mg Cap] 300 mg PO HS 06/23/17 02/22/19 Hydrocortisone Valerate 15 gm TP BID 06/23/17 02/22/19 Insulin Glargine,Hum.rec.anlog 30 units SQ BID 06/23/17 02/22/19 [Lantus Insulin 100units/mL 10mL vial] Meloxicam 7.5 mg PO DAILY 06/23/17 02/22/19 Metformin HCl [Glucophage 500mg 500 mg PO BID 06/23/17 02/22/19 Tablet] Pravastatin Sodium [Pravachol 40mg 80 mg PO HS 06/23/17 02/22/19 Tablet] Ramipril [Altace] 5 mg PO DAILY 06/23/17 02/22/19 Ciprofloxacin HCl/Dexameth 4 drp OTIC (EAR) BID 02/22/19 02/22/19 [Ciprodex] Mupirocin [Bactroban 2% Ointment 1 applicatio TP TID 02/22/19 02/22/19 22gm tube] Allergies Allergy/AdvReac Type Severity Reaction Status Date / Time No Known Allergies Allergy Verified 11/24/18 13:31 [facility] History - Hepatitis A Screen Drug use history?: No High risk sexual behaviors?: No History of sexually transmitted infection?: No Currently employed?: No Childcare worker?: No Do you have indoor plumbing?: Yes Do you have electricity?: Yes Attestation statement:: This patient has been screened for Hepatitis A risk factors. Medical History: Reports:: Diabetes Mellitus Type 2, Hyperlipidemia, Hypertension Denies:: Cancer, MRSA Comment: BPH Laterality Cases: Bilateral: Myringotomy (Ear Tubes) Other Surgeries: Yes: Colonoscopy, Hernia Repair, Other Amputation: No Fractures: No - Social History Smoking Status: Never smoker Alcohol Intake: never Substance Use Type: denies use Occupational Status: retired Household Members: spouse Family Hx:: No significant family history ROS Obtained: Yes All systems reviewed & no additional complaints - Constitutional Constitutional: Denies chills, Denies fever(s) - Cardiovascular Cardiovascular: Denies chest pain, Denies chest pain at rest, Denies leg edema - Respiratory Respiratory: No change in phlegm color, No chest congestion, No cough, No dyspnea - Gastrointestinal Gastrointestingal: Reports: abdominal pain, cramping. Denies: belching, change in stool character, diarrhea, incontinent of stools, vomiting blood, bright red blood in stools, loose stools - Genitourinary Male Genitourinary: Denies flank pain, Denies hematuria - Musculoskeletal Musculoskeletal: Reports system reviewed and no additional complaints, except as docu - Integumentary/Breasts Skin/Breast: Denies rash, Denies skin pain - Hematologic/Lymphatic Henatologic/Lymphatic: Denies easy bleeding, Denies easy bruising Physical Exam - General General appearance: alert, in no apparent distress, in distress - Head Head exam: atraumatic, normocephalic, normal inspection - Eye Eye exam: Present: normal appearance, PERRL, EOMI - ENT ENT exam: Present: normal exam, normal oropharynx, mucous membranes moist, TM's normal bilaterally, normal external ear exam - Chest Chest inspection: Present: normal inspection, symmetric chest wall rise. Absent: tenderness - Respiratory Respiratory exam: Present: normal lung sounds bilaterally. Absent: respiratory distress - Cardiovascular Cardiovascular exam: Present: regular rate, normal rhythm. Absent: JVD - Abdominal Exam Abdominal exam: Present: soft, tenderness, other (diffusely tender,). Absent: distention, diminished bowel sounds, organomegaly, mass, pulsatile mass - exam: Present: normal inspection - Extremities Exam Extremities exam: Present: normal inspection, full ROM, normal capillary refill. Absent: calf tenderness - Neurological Exam Neurological exam: Present: alert, oriented X3, other (agitated) - Psychiatric Psychiatric exam: Present: normal affect, normal mood - Skin Skin exam: Present: warm, dry, intact, normal color - Lymphatic Lymphatic Findings: no adenopathy
[2019-02-22 19:50] LABS: Basophils % 0.5 % (0.1-2.0); Eosinophils # 0.1 K/mm3 (0.0-0.4); Eosinophils % 1.3 % (0.1-12.0); Hematocrit 36.2 % (42.0-52.0); Lymphocytes # 0.8 K/mm3 (0.7-4.5); Lymphocytes % 8.5 % (10-50); Mean Corpuscular HGB Conc 33.2 g/dL (31.8-35.4); Mean Corpuscular Volume 89.4 fl (80-94); Mean Platelet Volume 8.1 fl (7.4-10.4); Monocytes # 0.5 K/mm3 (0.1-1.0); Monocytes % 5.5 % (1.7-9.3); Neutrophils # 7.5 K/mm3 (1.8-7.8); Neutrophils % 84.2 % (37.0-80.0); Platelet Count 106 K/mm3 (142-424); Red Blood Count 4.05 M/mm3 (4.60-6.20); Red Cell Distribution Width 14.1 % (11.5-17.5); White Blood Count 8.9 K/mm3 (4.8-10.8)
[2019-02-22 19:52] LABS: Microscopic, Urine URINE MICROSCOPIC (MICROSCOPIC)
[2019-02-22 19:57] LABS: Alanine Aminotransferase 40 U/L (12-78); Albumin Level 3.7 gm/dL (3.4-5.0); Alkaline Phosphatase 66 U/L (46-116); Amylase 68 U/L (25-115); Anion Gap 16.7 mEq/L (5-15); Aspartate Amino Transferase 47 U/L (15-37); Bilirubin,Total 1.1 mg/dL (0.2-1.0); Blood Urea Nitrogen 32 mg/dL (7-18); Calcium 9.7 mg/dL (8.5-10.1); Carbon Dioxide 23 mmol/L (21.0-32.0); Chloride 107 mmol/L (98-107); Globulin 3.7 gm/dl (1.3-3.2); Glucose 243 mg/dL (74-106); Sodium 142 mmol/L (136-145); Total Protein,Serum 7.4 gm/dL (6.4-8.2)
[2019-02-22 20:01] LABS: Appearance,Urine CLEAR (Clear); Bilirubin,Urine Negative (Negative); Blood, Urine Negative (Negative); Color,Urine ORANGE (Yellow); Glucose,Urine (UA) TRACE (Negative); Ketones,Urine Negative (Negative); Leukocyte Esterase,Urine Negative (Negative); PH,Urine 5.5 (5.0-8.5); Protein,Urine Negative (Negative); Specific Gravity, Urine >= 1.030 (1.005-1.030)
[2019-02-22 20:30] LABS: Bacteria,Urine Trace /lpf; Squamous Epithelial Cell,Urine Occasional #/hpf (0-5); WBC,Urine Occasional #/hpf (0-3)
--- NOTE | 2019-02-22 23:37 | Progress Note ---
Internal Medicine - PN: Subj *Date: 02/22/19 *Time: 23:34 Interval history: 78-year-old white male admitted through the emergency room with acute abdominal pain. His states that he has had some abdominal pain for the past 3 days but it became more severe today. He has not had vomiting. She is not sure when his last bowel movement was. He has diffuse tenderness. In the emergency room Dr. Hubbard did a rectal exam and found no stool or blockage. He has registered some fever since admission. He has received pain medication in the emergency room, Dilaudid and Toradol, but still moans with abdominal pain. He is diabetic. Exam Vital signs and Labs for Last 24 Hours: Temp Pulse Resp BP Pulse Ox 98.5 F 87 20 125/87 97 02/22/19 22:41 02/22/19 22:41 02/22/19 22:41 02/22/19 22:41 02/22/19 21:30 Laboratory Results - last 24 hr 02/22/19 19:20: WBC 8.9, RBC 4.05 L, Hgb 12.0 L, Hct 36.2 L, MCV 89.4, MCH 29.7, MCHC 33.2, RDW 14.1, Plt Count 106 L, MPV 8.1, Neut % (Auto) 84.2 H, Lymph % (Auto) 8.5 L, [place] % (Auto) 5.5, Eos % (Auto) 1.3, Baso % (Auto) 0.5, Neut # (Auto) 7.5, Lymph # (Auto) 0.8, [place] # (Auto) 0.5, Eos # (Auto) 0.1, Baso # (Auto) 0.0 02/22/19 19:20: Sodium 142, Potassium 4.7, Chloride 107, Carbon Dioxide 23, Anion Gap 16.7 H, BUN 32 H, Creatinine 1.28, Estimated Creat Clear 65, Estimated GFR 54 L, Est GFR ( Amer) 65, Glucose 243 H, Calcium 9.7, Total Bilirubin 1.1 H, AST 47 H, ALT 40, Alkaline Phosphatase 66, Troponin I < 0.02, Total Protein 7.4, Albumin 3.7, Globulin 3.7 H, Albumin/Globulin Ratio 1.0 L, Amylase 68, Lipase 223 02/22/19 19:20: ESR 22 H 09/04/19 19:20: C-Reactive Protein 0.3 02/22/19 19:45: Urine Color [place], Urine Appearance Clear, Urine pH 5.5, Ur Specific [place] >= 1.030, Urine Protein Negative, Urine Glucose (UA) Trace, Urine Ketones Negative, Urine Blood Negative, Urine Nitrate Negative, Urine Bilirubin Negative, Urine Urobilinogen 1.0, Ur Leukocyte Esterase Negative, Urine WBC Occasional, Ur Squamous Epith Cells Occasional, Urine Bacteria Trace 02/22/19 20:00: Stool Occult Blood Negative 02/22/19 20:50: Lactate 2.4 H I & O for Last 24 hours: Intake & Output 02/20/19 02/21/19 02/22/19 02/23/19 11:59 11:59 11:59 11:59 Intake Total 1000 / 1000 Balance 1000 / 1000 Weight 220 lb Laboratory Tests 02/22/19 19:20 WBC 8.9 Hgb 12.0 L Hct 36.2 L Radiology Reports for the Last 24 Hours: The oral report that I received on the CT was not very specific. Some distal esophageal thickening was noted and some thickening in the sigmoid was noted. - Constitutional mild distress Comments: After receiving pain medicine in the emergency room he is not very responsive but moans with pain. - *Routine HEENT Exam ENT: Present: mucous membranes moist - *Routine Respiratory Exam Present: CTA bilaterally - *Routine Cardiovascular Exam Present: RRR - *Routine Abdominal Exam Present: tenderness (Diffusely tender. Some distention.) - *Routine Extremities Exam Present: edema (1-2+.) - *Routine Neurological Exam Absent: alert (Moans with pain.) Assessment and Plan (1) Insulin dependent diabetes mellitus Current visit: Yes Status: Acute Category: Medical Code(s): E11.9 - Type 2 diabetes mellitus without complications; Z79.4 - continuous churn buttermaker (current) use of i nsulin (2) Abdominal pain Current visit: Yes Status: Acute Category: Medical Code(s): R10.9 - Unspecified abdominal pain (3) Diabetes mellitus, type 2 Current visit: No Status: Acute Qualifiers: Diabetes mellitus half-way insulin use: with medical terminologist use Diabetes mellitus complication status: with neurologic complications Diabetes mellitus complication detail: with polyneuropathy Qualified Code(s): E11.42 - Type 2 diabetes mellitus with diabetic polyneuropathy; Z79.4 - continuous churn buttermaker (current) use of insulin Category: Medical Code(s): E11.9 - Type 2 diabetes mellitus without complications (4) Fever Current visit: No Status: Acute Category: Medical Code(s): R50.9 - Fever, unspecified - Assessment and plan all Dx Assessment and Plan for all problems:: Pain relief this evening. Surgical consult.
[2019-02-23 07:08] LABS: Basophils # 0.1 K/mm3 (0-0.2); Basophils % 0.6 % (0.1-2.0); Eosinophils # 0.1 K/mm3 (0.0-0.4); Eosinophils % 0.9 % (0.1-12.0); Hematocrit 38.1 % (42.0-52.0); Hemoglobin 12.6 g/dL (14.1-18.0); Lymphocytes # 0.8 K/mm3 (0.7-4.5); Lymphocytes % 8.1 % (10-50); Mean Corpuscular HGB Conc 33.1 g/dL (31.8-35.4); Mean Corpuscular Volume 90.8 fl (80-94); Mean Platelet Volume 7.8 fl (7.4-10.4); Monocytes # 0.5 K/mm3 (0.1-1.0); Neutrophils # 8.2 K/mm3 (1.8-7.8); Neutrophils % 85.3 % (37.0-80.0); Platelet Count 95 K/mm3 (142-424); Red Cell Distribution Width 14.2 % (11.5-17.5); White Blood Count 9.6 K/mm3 (4.8-10.8)
[2019-02-23 07:33] LABS: Anion Gap 14.9 mEq/L (5-15); Calcium 8.8 mg/dL (8.5-10.1); Creatine Kinase 108 U/L (39-308)
--- NOTE | 2019-02-23 07:33 | Pharmacy Consult Notes ---
[facility] Pharmacy VTE Monitoring - Patient Demographics Admission date: 02/22/19 Report Date: 02/23/19 Time: 07:33 Allergies/Adverse Reactions: Patient Allergies No Known Allergies Allergy (Verified 11/24/18 13:31) Height: 1.93 m Weight: 98.118 kg Patient Problems: Current Active Problems Abdominal pain (Acute) Insulin dependent diabetes mellitus (Acute) - VTE Risk Labs: VTE Related Lab Results Hgb 12.6 g/dL (14.1-18.0) L 02/23/19 06:45 Hct 38.1 % (42.0-52.0) L 02/23/19 06:45 Plt Count 95 K/mm3 (142-424) L 02/23/19 06:45 BUN 32 mg/dL (7-18) H 02/22/19 19:20 Creatinine 1.28 mg/dL (0.70-1.30) 02/22/19 19:20 Estimated Creat Clear 65 mL/min (50-200) 02/22/19 19:20 VTE Score: 3 VTE Risk Level: Low Risk - Prophylaxis VTE Prophylaxis Ordered?: Yes Types of VTE Prophylaxis: TEDS Knee High Location of Applied Device: Bilateral Lower Extremeties - VTE Diagnosis Confirmed Treatment or plan recommended: Continue Current Treatment
--- NOTE | 2019-02-23 08:16 | History & Physical Report ---
*Admission Date: 02/22/19 <Caroline Álvarez 02/23/19 08:22> *Chief complaint: abdominal pain <Caroline Álvarez 02/23/19 08:22> *History of present illness: Mr. George is an 78-year-old white male with HTN, HLP, and Type 2 DM who was admitted through the emergency room with acute abd ominal pain. His stated that he had had some abdominal pain for 3 days but it became more severe yesterday. He has not had vomiting. She was not sure when his last bowel movement was. He complained of diffuse tenderness. In the emergency room, Dr. Hubbard did a rectal exam and found no stool or blockage. He was running a fever. He received pain medication in the emergency room, Dilaudid and Toradol, but is still moaning with abdominal pain this am. He is diabetic. He is a poor historian as he moans with abdominal pain and then falls asleep. <Caroline Álvarez 02/23/19 08:22> [facility] History I have reviewed the patient's past medical history: Yes <Caroline Álvarez 02/23/19 08:22> Medical History: Reports:: BPH, Diabetes Mellitus Type 2, Hyperlipidemia, Hypertension Denies:: Cancer, Diabetes Mellitus Type 1, MRSA <Caroline Álvarez 02/23/19 08:22> *Have you ever received a pneumonia vaccine?: Yes <Caroline Álvarez 02/23/19 08:22> *Have you received a flu vaccine this season?: No <Caroline Álvarez 02/23/19 08:22> Other Medical History: Reports: Arthritis (OSTEOARTHRITIS), Other (Sleep apnea) <Caroline Álvarez 02/23/19 08:22> Laterality Cases: Bilateral: Myringotomy (Ear Tubes) <Caroline Álvarez 02/23/19 08:22> Other Surgeries: Yes: Cholecystectomy, Colonoscopy, Hernia Repair <Caroline Álvarez 02/23/19 08:22> Amputation: No <Caroline Álvarez 02/23/19 08:22> Fractures: No <Caroline Álvarez 02/23/19 08:22> - *Social History Educational Level: Attended Grade School <Caroline Álvarez 02/23/19 08:22> Smoking Status: Former smoker <ThiernoyohanCaroline 02/23/19 08:22> Tobacco Type: cigarettes <ThiernoyohanCaroline 02/23/19 08:22> # Packs/Day (cigarettes): 1 <ThiernoyohanCaroline 02/23/19 08:22> Smoking End Date: 1973 <PreetiCaroline 02/23/19 08:22> Alcohol Intake: never <Chet Álvareza 02/23/19 08:22> Substance Use Type: denies use <ThiernoyohanCaroline 02/23/19 08:22> *Occupational Status:: retired <PreetiCaroline 02/23/19 08:22> Housing: house <PreetiCaroline 02/23/19 08:22> Household Members: spouse <ThiernoyohanCaroline 02/23/19 08:22> *Travel in the last 8 weeks: None <Chet Álvareza 02/23/19 08:22> Family Hx:: Coronary Artery Disease <Chet Álvareza 02/23/19 08:22> Review of Systems - Constitutional Reports fever(s), Reports weakness <PreetiCaroline 02/23/19 08:22> - Eyes Denies blurry vision, Denies double vision <PreetiCaroline 02/23/19 08:22> - ENT Denies nasal congestion, Denies sore throat <PreetiCaroline 02/23/19 08:22> - *Cardiovascular Denies chest pain <Chet Álvareza 02/23/19 08:22> - *Respiratory Denies cough, Denies shortness of breath <PreetiCaroline 02/23/19 08:22> - *Gastrointestinal Reports abdominal pain (diffuse), Reports loose stools, Reports nausea, Denies vomiting <Chet Álvareza 02/23/19 08:22> - *Genitourinary Denies difficulty urinating <Chet Álvareza 02/23/19 08:22> - *Musculoskeletal Reports joint pain <Caroline Álvarez 02/23/19 08:22> - *Neurologic Reports weakness, Denies headache(s) <Caroline Álvarez 02/23/19 08:22> Meds Home Medications Medication Instructions Recorded Confirmed Type Aspirin [Aspirin 81mg EC Tab] 81 mg PO DAILY 06/23/17 02/22/19 History Insulin Glargine,Hum.rec.anlog 22 units SQ BID 06/23/17 02/23/19 History [Lantus Insulin 100units/mL 10mL vial] Meloxicam 15 mg PO DAILY 06/23/17 02/23/19 History Metformin HCl [Glucophage 500mg 500 mg PO BID 06/23/17 02/22/19 History Tablet] Pravastatin Sodium [Pravachol 40mg 80 mg PO HS 06/23/17 02/22/19 History Tablet] Ciprofloxacin HCl/Dexameth 4 drp OTIC (EAR) BID PRN 02/22/19 02/22/19 History [Ciprodex] Gabapentin [Gabapentin 400mg Cap] 400 mg PO HS 02/23/19 02/23/19 History Meclizine HCl [Meclizine 25mg Tab] 25 mg PO TIDP PRN 02/23/19 02/23/19 History Ramipril 5 mg PO DAILY 02/23/19 02/23/19 History <Jamir Schumacher - 02/23/19 13:32> Allergies Allergy/AdvReac Type Severity Reaction Status Date / Time No Known Allergies Allergy Verified 11/24/18 13:31 <Jamir Schumacher - 02/23/19 13:32> Exam Vital signs and Labs for Last 24 Hours: Temp Pulse Resp BP Pulse Ox 98.5 F 90 20 160/82 H 97 02/23/19 11:02/23/19 11:02/23/19 11:02/23/19 11:02/23/19 11:09 Laboratory Results - last 24 hr 02/22/19 19:20: WBC 8.9, RBC 4.05 L, Hgb 12.0 L, Hct 36.2 L, MCV 89.4, MCH 29.7, MCHC 33.2, RDW 14.1, Plt Count 106 L, MPV 8.1, Neut % (Auto) 84.2 H, Lymph % (Auto) 8.5 L, [place] % (Auto) 5.5, Eos % (Auto) 1.3, Baso % (Auto) 0.5, Neut # (Auto) 7.5, Lymph # (Auto) 0.8, [place] # (Auto) 0.5, Eos # (Auto) 0.1, Baso # (Auto) 0.0 02/22/19 19:20: Sodium 142, Potassium 4.7, Chloride 107, Carbon Dioxide 23, Anion Gap 16.7 H, BUN 32 H, Creatinine 1.28, Estimated Creat Clear 65, Estimated GFR 54 L, Est GFR ( Amer) 65, Glucose 243 H, Calcium 9.7, Total Bilirubin 1.1 H, AST 47 H, ALT 40, Alkaline Phosphatase 66, Troponin I < 0.02, Total Protein 7.4, Albumin 3.7, Globulin 3.7 H, Albumin/Globulin Ratio 1.0 L, Amylase 68, Lipase 223 02/22/19 19:20: ESR 22 H 02/22/19 19:20: C-Reactive Protein 0.3 02/22/19 19:45: Urine Color [place], Urine Appearance Clear, Urine pH 5.5, Ur Specific [place] >= 1.030, Urine Protein Negative, Urine Glucose (UA) Trace, Urine Ketones Negative, Urine Blood Negative, Urine Nitrate Negative, Urine Bilirubin Negative, Urine Urobilinogen 1.0, Ur Leukocyte Esterase Negative, Urine WBC Occasional, Ur Squamous Epith Cells Occasional, Urine Bacteria Trace 02/22/19 20:00: Stool Occult Blood Negative 02/22/19 20:50: Lactate 2.4 H 02/23/19 00:50: Lactate 1.6 02/23/19 01:38: POC Glucose 214 H 02/23/19 06:12: POC Glucose 212 H 02/23/19 06:45: Total Creatine Kinase 108, CK-MB (CK-2) 1.1, CK-MB (CK-2) Rel Index 1.0, Troponin I < 0.02 02/23/19 06:45: Sodium 142, Potassium 4.9, Chloride 109 H, Carbon Dioxide 23, Anion Gap 14.9, BUN 38 H, Creatinine 1.47 H, Estimated Creat Clear 56, Estimated GFR 46 L, Est GFR ( Amer) 56 L, Glucose 218 H, Calcium 8.8 02/23/19 06:45: WBC 9.6, RBC 4.20 L, Hgb 12.6 L, Hct 38.1 L, MCV 90.8, MCH 30.0, MCHC 33.1, RDW 14.2, Plt Count 95 L, MPV 7.8, Neut % (Auto) 85.3 H, Lymph % (Auto) 8.1 L, [place] % (Auto) 5.0, Eos % (Auto) 0.9, Baso % (Auto) 0.6, Neut # (Auto) 8.2 H, Lymph # (Auto) 0.8, [place] # (Auto) 0.5, Eos # (Auto) 0.1, Baso # (Auto) 0.1, Total Counted 100, Neutrophils % (Manual) 88 H, Lymphocytes % (Manual) 7 L, Monocytes % (Manual) 3, Eosinophils % (Manual) 1, Metamyelocytes % 1.0, Platelet Estimate Moderate decrease, RBC Morphology Normal 02/23/19 07:12: Stl Aeromonas (PCR) Not detected, Stl C. cayetanensis PCR Not detected, Stool Rotavirus (PCR) Not detected, Stl Adenov F 40/41 PCR Not detected, Stool Astrovirus (PCR) Not detected, Stool Campylobacter PCR Not detected, Stl C.difficile Tox PCR Detected A, Stool Cryptosporidium PCR Not detected, Stl E.coli Shiga Tox PCR Not detected, Stool E coli O157 PCR Not detected, Stl Enterotoxigenic E PCR Not detected, Stool EPEC (PCR) Not detected, Stool EAEC (PCR) Not detected, Stl E. histolytica PCR Not detected, Stool Giardia [place] PCR Not detected, Stool Salmonella PCR Not detected, Stool Sapovirus (PCR) Not detected, Stl P. shigelloides PCR Not detected, Stl Shigella/EIEC PCR Not detected, St Y.enterocolitica PCR Not detected, Stool Vibrio (PCR) Not detected, Stl Vibrio cholerae PCR Not detected, Stl Norovirus GI/GII PCR Not detected 02/23/19 12:01: POC Glucose 170 H <WinsomeJamir Adam - 02/23/19 13:32> Temp Pulse Resp BP Pulse Ox 98.4 F 87 20 165/80 H 97 02/23/19 07:35 02/23/19 07:35 02/23/19 07:35 02/23/19 07:35 02/23/19 07:35 Laboratory Results - last 24 hr 02/22/19 19:20: WBC 8.9, RBC 4.05 L, Hgb 12.0 L, Hct 36.2 L, MCV 89.4, MCH 29.7, MCHC 33.2, RDW 14.1, Plt Count 106 L, MPV 8.1, Neut % (Auto) 84.2 H, Lymph % (Auto) 8.5 L, [place] % (Auto) 5.5, Eos % (Auto) 1.3, Baso % (Auto) 0.5, Neut # (Auto) 7.5, Lymph # (Auto) 0.8, [place] # (Auto) 0.5, Eos # (Auto) 0.1, Baso # (Auto) 0.0 02/22/19 19:20: Sodium 142, Potassium 4.7, Chloride 107, Carbon Dioxide 23, Anion Gap 16.7 H, BUN 32 H, Creatinine 1.28, Estimated Creat Clear 65, Estimated GFR 54 L, Est GFR ( Amer) 65, Glucose 243 H, Calcium 9.7, Total Bilirubin 1.1 H, AST 47 H, ALT 40, Alkaline Phosphatase 66, Troponin I < 0.02, Total Protein 7.4, Albumin 3.7, Globulin 3.7 H, Albumin/Globulin Ratio 1.0 L, Amylase 68, Lipase 223 02/22/19 19:20: ESR 22 H 02/22/19 19:20: C-Reactive Protein 0.3 02/22/19 19:45: Urine Color [place], Urine Appearance Clear, Urine pH 5.5, Ur Specific [place] >= 1.030, Urine Protein Negative, Urine Glucose (UA) Trace, Urine Ketones Negative, Urine Blood Negative, Urine Nitrate Negative, Urine Bilirubin Negative, Urine Urobilinogen 1.0, Ur Leukocyte Esterase Negative, Urine WBC Occasional, Ur Squamous Epith Cells Occasional, Urine Bacteria Trace 02/22/19 20:00: Stool Occult Blood Negative 02/22/19 20:50: Lactate 2.4 H 02/23/19 00:50: Lactate 1.6 02/23/19 01:38: POC Glucose 214 H 02/23/19 06:45: Total Creatine Kinase 108, CK-MB (CK-2) 1.1, CK-MB (CK-2) Rel Index 1.0, Troponin I < 0.02 02/23/19 06:45: Sodium 142, Potassium 4.9, Chloride 109 H, Carbon Dioxide 23, Anion Gap 14.9, BUN 38 H, Creatinine 1.47 H, Estimated Creat Clear 56, Estimated GFR 46 L, Est GFR ( Amer) 56 L, Glucose 218 H, Calcium 8.8 02/23/19 06:45: WBC 9.6, RBC 4.20 L, Hgb 12.6 L, Hct 38.1 L, MCV 90.8, MCH 30.0, MCHC 33.1, RDW 14.2, Plt Count 95 L, MPV 7.8, Neut % (Auto) 85.3 H, Lymph % (Auto) 8.1 L, [place] % (Auto) 5.0, Eos % (Auto) 0.9, Baso % (Auto) 0.6, Neut # (Auto) 8.2 H, Lymph # (Auto) 0.8, [place] # (Auto) 0.5, Eos # (Auto) 0.1, Baso # (Auto) 0.1 <Caroline Álvarez - 02/23/19 08:22> I & O for Last 24 hours: Intake & Output 02/21/19 02/22/19 02/23/19 02/24/19 11:59 11:59 11:59 11:59 Intake Total 2775 / 2775 Balance 2775 / 2775 Weight 216 lb 5 oz <Jamir Schumacher Adam - 02/23/19 13:32> Intake & Output 02/20/19 02/21/19 02/22/19 02/23/19 11:59 11:59 11:59 11:59 Intake Total 2775 / 2775 Balance 2775 / 2775 Weight 216 lb 5 oz <Caroline Álvarez 02/23/19 08:22> - Constitutional Comments: Moaning with abdominal pain, answers yes and no to questioning but seems confused <Caroline Álvarez 02/23/19 08:22> - *Routine HEENT Exam Head: Present: normocephalic <Caroline Álvarez 02/23/19 08:22> Eye: Present: EOMI, PERRL <Caroline Álvarez 02/23/19 08:22> ENT: Present: mucous membranes dry <Caroline Álvarez 02/23/19 08:22> - *Routine Respiratory Exam Present: CTA bilaterally <Caroline Álvarez 02/23/19 08:22> - *Routine Cardiovascular Exam Present: RRR <Caroline Álvarez 02/23/19 08:22> - *Routine Abdominal Exam Present: soft, normoactive bowel sounds, tenderness (diffuse), distended <Caroline Álvarez 02/23/19 08:22> - *Routine Extremities Exam Absent: cyanosis, clubbing, edema <Caroline Álvarez 02/23/19 08:22> - *Routine Skin Exam Present: warm. Absent: rash <Caroline Álvarez 02/23/19 08:22> - *Routine Neurological Exam alternates between moaning with pain and sleeping <Caroline Álvarez 02/23/19 08:22> H&P: Result - Impressions Abdominal CT 1. Hiatal hernia with thickening of the distal esophageal wall which may be related to reflux esophagitis. There are few small lymph nodes in the celiac axis and portal region. Consider direct imaging for further evaluation of the distal esophagus. 2. Colonic fecal stasis 3. Cirrhosis <Caroline Álvarez 02/23/19 08:22> Assessment and Plan (1) Abdominal pain Current visit: Yes Status: Acute Category: Medical Code(s): R10.9 - Unspecified abdominal pain (2) Insulin dependent diabetes mellitus Current visit: Yes Status: Acute Category: Medical Code(s): E11.9 - Type 2 diabetes mellitus without complications; Z79.4 - detention (current) use of insulin (3) Diabetes mellitus, type 2 Current visit: No Status: Acute Qualifiers: Diabetes mellitus watermelon harvesting supervisor insulin use: with watermelon harvesting supervisor use Diabetes mellitus complication status: with neurologic complications Diabetes mellitus complication detail: with polyneuropathy Qualified Code(s): E11.42 - Type 2 diabetes mellitus with diabetic polyneuropathy; Z79.4 - detention (current) use of insulin Category: Medical Code(s): E11.9 - Type 2 diabetes mellitus without complications (4) Fever Current visit: No Status: Acute Category: Medical Code(s): R50.9 - Fever, unspecified (5) Renal insufficiency Current visit: Yes Status: Acute Category: Medical Code(s): N28.9 - Disorder of kidney and ureter, unspecified <Caroline Álvarez - 02/23/19 08:43> (1) Abdominal pain Current visit: Yes Status: Acute Category: Medical Code(s): R10.9 - Unspecified abdominal pain (2) Insulin dependent diabetes mellitus Current visit: Yes Status: Acute Category: Medical Code(s): E11.9 - Type 2 diabetes mellitus without complications; Z79.4 - local company intermodal truck driver (current) use of insulin (3) Diabetes mellitus, type 2 Current visit: No Status: Acute Qualifiers: Diabetes mellitus watermelon harvesting supervisor insulin use: with watermelon harvesting supervisor use Diabetes mellitus complication status: with neurologic complications Diabetes mellitus complication detail: with polyneuropathy Qualified Code(s): E11.42 - Type 2 diabetes mellitus with diabetic polyneuropathy; Z79.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 difficile colitis Current visit: Yes Status: Acute Category: Medical Code(s): A04.72 - Enterocolitis due to Clostridium difficile, not specified as recurrent <Jmair Schumacher - 02/23/19 13:32> - Assessment and plan all Dx Assessment and Plan for all problems:: Patient seen and examined. Concur with above. Dilaudid seemed to have caused confusion last night. Will change to morphine. Will review CT scan. Awaiting surgical consultation and results of stool study. <Jamir Schumacher - 02/23/19 13:32> Pain management and antibiotics have been initiated. A surgical consult has been placed. <Caroline Álvarez - 02/23/19 08:22>
[2019-02-23 08:39] LABS: Eosinophils % 1 % (0-3); Lymphocytes % 7 % (10-50); Monocytes % 3 % (2-9); Neutrophils % 88 % (42-76); RBC Morphology Normal; Total Cells Counted 100
--- NOTE | 2019-02-23 10:48 | Consult Report ---
*Admission Date: 02/22/19 *Reason for consult:: Abdominal pain *History of present illness: This is an 78-year-old gentleman seen in consultation from his primary service for evaluation regarding abdominal pain. He presented with a 3-day history of increasing abdominal pain with some radiation to the back. He does have some nausea but no emesis. I documented fever to 101.8 overnight has been noted. He is currently afebrile. No definite melena or bright red blood per rectum. No hematemesis. Review of Systems - Constitutional Reports fever(s) - Eyes Denies discharge - ENT Denies bleeding gums - *Cardiovascular Denies chest pain - *Respiratory Denies cough - *Gastrointestinal Reports abdominal pain, Reports nausea - *Genitourinary Denies blood in urine - *Neurologic Reports weakness, Denies headache(s) - Hematologic/Lymphatic Denies easy bleeding H History Medical History: Reports:: BPH, Diabetes Mellitus Type 2, Hyperlipidemia, Hypertension Denies:: Cancer, Diabetes Mellitus Type 1, MRSA *Have you ever received a pneumonia vaccine?: Yes *Have you received a flu vaccine this season?: No Other Medical History: Reports: Arthritis (OSTEOARTHRITIS), Other (Sleep apnea) Laterality Cases: Bilateral: Myringotomy (Ear Tubes) Other Surgeries: Yes: Cholecystectomy, Colonoscopy, Hernia Repair, Other Amputation: No Fractures: No - *Social History Educational Level: Attended Grade School Smoking Status: Former smoker Tobacco Type: cigarettes # Packs/Day (cigarettes): 1 Smoking End Date: 1973 Alcohol Intake: never Substance Use Type: denies use *Occupational Status:: retired Housing: house Household Members: spouse *Travel in the last 8 weeks: None Family Hx:: Coronary Artery Disease Meds Home Medications Medication Instructions Recorded Confirmed Type Aspirin [Aspirin 81mg EC Tab] 81 mg PO DAILY 06/23/17 02/22/19 History Insulin Glargine,Hum.rec.anlog 22 units SQ BID 06/23/17 02/23/19 History [Lantus Insulin 100units/mL 10mL vial] Meloxicam 15 mg PO DAILY 06/23/17 02/23/19 History Metformin HCl [Glucophage 500mg 500 mg PO BID 06/23/17 02/22/19 History Tablet] Pravastatin Sodium [Pravachol 40mg 80 mg PO HS 06/23/17 02/22/19 History Tablet] Ciprofloxacin HCl/Dexameth 4 drp OTIC (EAR) BID PRN 02/22/19 02/22/19 History [Ciprodex] Gabapentin [Gabapentin 400mg Cap] 400 mg PO HS 02/23/19 02/23/19 History Meclizine HCl [Meclizine 25mg Tab] 25 mg PO TIDP PRN 02/23/19 02/23/19 History Ramipril 5 mg PO DAILY 02/23/19 02/23/19 History Allergies Allergy/AdvReac Type Severity Reaction Status Date / Time No Known Allergies Allergy Verified 11/24/18 13:31 Exam Vital signs and Labs for Last 24 Hours: Temp Pulse Resp BP Pulse Ox 98.4 F 87 20 165/80 H 97 02/23/19 07:35 02/23/19 07:35 02/23/19 07:35 02/23/19 07:35 02/23/19 07:35 Laboratory Results - last 24 hr 02/22/19 19:20: WBC 8.9, RBC 4.05 L, Hgb 12.0 L, Hct 36.2 L, MCV 89.4, MCH 29.7, MCHC 33.2, RDW 14.1, Plt Count 106 L, MPV 8.1, Neut % (Auto) 84.2 H, Lymph % (Auto) 8.5 L, [place] % (Auto) 5.5, Eos % (Auto) 1.3, Baso % (Auto) 0.5, Neut # (Auto) 7.5, Lymph # (Auto) 0.8, [place] # (Auto) 0.5, Eos # (Auto) 0.1, Baso # (Auto) 0.0 02/22/19 19:20: Sodium 142, Potassium 4.7, Chloride 107, Carbon Dioxide 23, Anion Gap 16.7 H, BUN 32 H, Creatinine 1.28, Estimated Creat Clear 65, Estimated GFR 54 L, Est GFR ( Amer) 65, Glucose 243 H, Calcium 9.7, Total Bilirubin 1.1 H, AST 47 H, ALT 40, Alkaline Phosphatase 66, Troponin I < 0.02, Total Protein 7.4, Albumin 3.7, Globulin 3.7 H, Albumin/Globulin Ratio 1.0 L, Amylase 68, Lipase 223 02/22/19 19:20: ESR 22 H 09/04/19 19:20: C-Reactive Protein 0.3 02/22/19 19:45: Urine Color [place], Urine Appearance Clear, Urine pH 5.5, Ur Specific [place] >= 1.030, Urine Protein Negative, Urine Glucose (UA) Trace, Urine Ketones Negative, Urine Blood Negative, Urine Nitrate Negative, Urine Bilirubin Negative, Urine Urobilinogen 1.0, Ur Leukocyte Esterase Negative, Urine WBC Occasional, Ur Squamous Epith Cells Occasional, Urine Bacteria Trace 02/22/19 20:00: Stool Occult Blood Negative 02/22/19 20:50: Lactate 2.4 H 02/23/19 00:50: Lactate 1.6 02/23/19 01:38: POC Glucose 214 H 02/23/19 06:45: Total Creatine Kinase 108, CK-MB (CK-2) 1.1, CK-MB (CK-2) Rel Index 1.0, Troponin I < 0.02 02/23/19 06:45: Sodium 142, Potassium 4.9, Chloride 109 H, Carbon Dioxide 23, Anion Gap 14.9, BUN 38 H, Creatinine 1.47 H, Estimated Creat Clear 56, Estimated GFR 46 L, Est GFR ( Amer) 56 L, Glucose 218 H, Calcium 8.8 02/23/19 06:45: WBC 9.6, RBC 4.20 L, Hgb 12.6 L, Hct 38.1 L, MCV 90.8, MCH 30.0, MCHC 33.1, RDW 14.2, Plt Count 95 L, MPV 7.8, Neut % (Auto) 85.3 H, Lymph % (Auto) 8.1 L, [place] % (Auto) 5.0, Eos % (Auto) 0.9, Baso % (Auto) 0.6, Neut # (Auto) 8.2 H, Lymph # (Auto) 0.8, [place] # (Auto) 0.5, Eos # (Auto) 0.1, Baso # (Auto) 0.1, Total Counted 100, Neutrophils % (Manual) 88 H, Lymphocytes % (Manual) 7 L, Monocytes % (Manual) 3, Eosinophils % (Manual) 1, Metamyelocytes % 1.0, Platelet Estimate Moderate decrease, RBC Morphology Normal 02/23/19 07:12: Stl Aeromonas (PCR) Not detected, Stl C. cayetanensis PCR Not d etected, Stool Rotavirus (PCR) Not detected, Stl Adenov F 40/41 PCR Not detected, Stool Astrovirus (PCR) Not detected, Stool Campylobacter PCR Not detected, Stl C.difficile Tox PCR Detected A, Stool Cryptosporidium PCR Not detected, Stl E.coli Shiga Tox PCR Not detected, Stool E coli O157 PCR Not detected, Stl Enterotoxigenic E PCR Not detected, Stool EPEC (PCR) Not detected, Stool EAEC (PCR) Not detected, Stl E. histolytica PCR Not detected, Stool Giardia Lamblia PCR Not detected, Stool Salmonella PCR Not detected, Stool Sapovirus (PCR) Not detected, Stl P. shigelloides PCR Not detected, Stl Shigella/EIEC PCR Not detected, St Y.enterocolitica PCR Not detected, Stool Vibrio (PCR) Not detected, Stl Vibrio cholerae PCR Not detected, Stl Norovirus GI/GII PCR Not detected I & O for Last 24 hours: Intake & Output 02/20/19 02/21/19 02/22/19 02/23/19 11:59 11:59 11:59 11:59 Intake Total 2775 / 2775 Balance 2775 / 2775 Weight 216 lb 5 oz - Constitutional mild distress - *Routine HEENT Exam Head: Present: normocephalic - *Routine Abdominal Exam Present: soft, tenderness Results - Labs 02/23/19 06:45 02/23/19 06:45 Laboratory Results - last 24 hr 02/22/19 19:20: WBC 8.9, RBC 4.05 L, Hgb 12.0 L, Hct 36.2 L, MCV 89.4, MCH 29.7, MCHC 33.2, RDW 14.1, Plt Count 106 L, MPV 8.1, Neut % (Auto) 84.2 H, Lymph % (Auto) 8.5 L, [place] % (Auto) 5.5, Eos % (Auto) 1.3, Baso % (Auto) 0.5, Neut # (Auto) 7.5, Lymph # (Auto) 0.8, [place] # (Auto) 0.5, Eos # (Auto) 0.1, Baso # (Auto) 0.0 02/22/19 19:20: Sodium 142, Potassium 4.7, Chloride 107, Carbon Dioxide 23, Anion Gap 16.7 H, BUN 32 H, Creatinine 1.28, Estimated Creat Clear 65, Estimated GFR 54 L, Est GFR ( Amer) 65, Glucose 243 H, Calcium 9.7, Total Bilirubin 1.1 H, AST 47 H, ALT 40, Alkaline Phosphatase 66, Troponin I < 0.02, Total Protein 7.4, Albumin 3.7, Globulin 3.7 H, Albumin/Globulin Ratio 1.0 L, Amylase 68, Lipase 223 02/22/19 19:20: ESR 22 H 02/22/19 19:20: C-Reactive Protein 0.3 02/22/19 19:45: Urine Color [place], Urine Appearance Clear, Urine pH 5.5, Ur Specific [place] >= 1.030, Urine Protein Negative, Urine Glucose (UA) Trace, Urine Ketones Negative, Urine Blood Negative, Urine Nitrate Negative, Urine Bilirubin Negative, Urine Urobilinogen 1.0, Ur Leukocyte Esterase Negative, Urine WBC Occasional, Ur Squamous Epith Cells Occasional, Urine Bacteria Trace 02/22/19 20:00: Stool Occult Blood Negative 02/22/19 20:50: Lactate 2.4 H 02/23/19 00:50: Lactate 1.6 02/23/19 01:38: POC Glucose 214 H 02/23/19 06:45: Total Creatine Kinase 108, CK-MB (CK-2) 1.1, CK-MB (CK-2) Rel Index 1.0, Troponin I < 0.02 02/23/19 06:45: Sodium 142, Potassium 4.9, Chloride 109 H, Carbon Dioxide 23, Anion Gap 14.9, BUN 38 H, Creatinine 1.47 H, Estimated Creat Clear 56, Estimated GFR 46 L, Est GFR ( Amer) 56 L, Glucose 218 H, Calcium 8.8 02/23/19 06:45: WBC 9.6, RBC 4.20 L, Hgb 12.6 L, Hct 38.1 L, MCV 90.8, MCH 30.0, MCHC 33.1, RDW 14.2, Plt Count 95 L, MPV 7.8, Neut % (Auto) 85.3 H, Lymph % (Auto) 8.1 L, [place] % (Auto) 5.0, Eos % (Auto) 0.9, Baso % (Auto) 0.6, Neut # (Auto) 8.2 H, Lymph # (Auto) 0.8, [place] # (Auto) 0.5, Eos # (Auto) 0.1, Baso # (Auto) 0.1, Total Counted 100, Neutrophils % (Manual) 88 H, Lymphocytes % (Manual) 7 L, Monocytes % (Manual) 3, Eosinophils % (Manual) 1, Metamyelocytes % 1.0, Platelet Estimate Moderate decrease, RBC Morphology Normal 02/23/19 07:12: Stl Aeromonas (PCR) Not detected, Stl C. cayetanensis PCR Not detected, Stool Rotavirus (PCR) Not detected, Stl Adenov F 40/41 PCR Not detected, Stool Astrovirus (PCR) Not detected, Stool Campylobacter PCR Not detected, Stl C.difficile Tox PCR Detected A, Stool Cryptosporidium PCR Not detected, Stl E.coli Shiga Tox PCR Not detected, Stool E coli O157 PCR Not detected, Stl Enterotoxigenic E PCR Not detected, Stool EPEC (PCR) Not detected, Stool EAEC (PCR) Not detected, Stl E. histolytica PCR Not detected, Stool Giardia Lamblia PCR Not detected, Stool Salmonella PCR Not detected, Stool Sapovirus (PCR) Not detected, Stl P. shigelloides PCR Not detected, Stl Shigella/EIEC PCR Not detected, St Y.enterocolitica PCR Not detected, Stool Vibrio (PCR) Not detected, Stl Vibrio cholerae PCR Not detected, Stl Norovirus GI/GII PCR Not detected - Imaging CT scan - abdomen: report reviewed, image reviewed CT scan - pelvis: report reviewed, image reviewed (cDiff +) Assessment and Plan (1) Abdominal pain Current visit: Yes Status: Acute Category: Medical Code(s): R10.9 - Unspecified abdominal pain Most likely secondary to C. difficile colitis (2) Insulin dependent diabetes mellitus Current visit: Yes Status: Acute Category: Medical Code(s): E11.9 - Type 2 diabetes mellitus without complications; Z79.4 - intermediate teacher (current) use of insulin (3) Diabetes mellitus, type 2 Current visit: No Status: Acute Qualifiers: Diabetes mellitus care home insulin use: with care home use Diabetes mellitus complication status: with neurologic complications Diabetes mellitus complication detail: with polyneuropathy Qualified Code(s): E11.42 - Type 2 diabetes mellitus with diabetic polyneuropathy; Z79.4 - intermediate (current) use of insulin Category: Medical Code(s): E11.9 - Type 2 diabetes mellitus without complications (4) Fever Current visit: No Status: Acute Category: Medical Code(s): R50.9 - Fever, unspecified (5) Renal insufficiency Current visit: Yes Status: Acute Category: Medical Code(s): N28.9 - Disorder of kidney and ureter, unspecified (6) C. difficile colitis Current visit: Yes Status: Acute Category: Medical Code(s): A04.72 - Enterocolitis due to Clostridium difficile, not specified as recurrent PO Vancomycin started Flagyl changed to IV to be utilized as an adjunct to Vancomycin Serial abdominal exams
--- NOTE | 2019-02-23 18:01 | Electrocardiograph Report ---
APPROVED REPORT Exam: Resting ECG HR:90 bpm ECG Measurements Heart Rate 90 AXES OR 244 P 57 QRSd 142 QRS -63 QT 398 T38 QTc 486 <Conclusion> Sinus rhythm with 1st degree AV block Right bundle branch block Left anterior fascicular block Bifascicular block Abnormal ECG Electronically signed by : Will Clarke, 02/23/2019 18:00:22
--- NOTE | 2019-02-24 07:02 | Progress Note ---
Subjective Narrative: Per nursing staff and per the patient's he "has now finally rested some". He is now seemingly in less pain and able to answer questions more clearly. Exam Vital signs and Labs for Last 24 Hours: Temp Pulse Resp BP Pulse Ox 98.3 F 58 L 16 127/61 96 02/24/19 04:14 02/24/19 04:14 02/24/19 04:14 02/24/19 04:14 02/24/19 04:14 Laboratory Results - last 24 hr 02/23/19 06:12: POC Glucose 212 H 02/23/19 06:45: Total Creatine Kinase 108, CK-MB (CK-2) 1.1, CK-MB (CK-2) Rel Index 1.0, Troponin I < 0.02 02/23/19 06:45: Sodium 142, Potassium 4.9, Chloride 109 H, Carbon Dioxide 23, Anion Gap 14.9, BUN 38 H, Creatinine 1.47 H, Estimated Creat Clear 56, Estimated GFR 46 L, Est GFR ( Amer) 56 L, Glucose 218 H, Calcium 8.8 02/23/19 06:45: WBC 9.6, RBC 4.20 L, Hgb 12.6 L, Hct 38.1 L, MCV 90.8, MCH 30.0, MCHC 33.1, RDW 14.2, Plt Count 95 L, MPV 7.8, Neut % (Auto) 85.3 H, Lymph % (Auto) 8.1 L, [place] % (Auto) 5.0, Eos % (Auto) 0.9, Baso % (Auto) 0.6, Neut # (Auto) 8.2 H, Lymph # (Auto) 0.8, [place] # (Auto) 0.5, Eos # (Auto) 0.1, Baso # (Auto) 0.1, Total Counted 100, Neutrophils % (Manual) 88 H, Lymphocytes % (Manual) 7 L, Monocytes % (Manual) 3, Eosinophils % (Manual) 1, Metamyelocytes % 1.0, Platelet Estimate Moderate decrease, RBC Morphology Normal 02/23/19 07:12: Stl Aeromonas (PCR) Not detected, Stl C. cayetanensis PCR Not detected, Stool Rotavirus (PCR) Not detected, Stl Adenov F 40/41 PCR Not detected, Stool Astrovirus (PCR) Not detected, Stool Campylobacter PCR Not detected, Stl C.difficile Tox PCR Detected A, Stool Cryptosporidium PCR Not detected, Stl E.coli Shiga Tox PCR Not detected, Stool E coli O157 PCR Not detected, Stl Enterotoxigenic E PCR Not detected, Stool EPEC (PCR) Not detected, Stool EAEC (PCR) Not detected, Stl E. histolytica PCR Not detected, Stool Giardia Lamblia PCR Not detected, Stool Salmonella PCR Not detected, Stool Sapovirus (PCR) Not detected, Stl P. shigelloides PCR Not detected, Stl Shigella/EIEC PCR Not detected, St Y.enterocolitica PCR Not detected, Stool Vibrio (PCR) Not detected, Stl Vibrio cholerae PCR Not detected, Stl Norovirus GI/GII PCR Not detected 02/23/19 12:01: POC Glucose 170 H 02/23/19 16:43: POC Glucose 147 H 02/23/19 20:44: POC Glucose 126 H 02/24/19 05:50: POC Glucose 103 I & O for Last 24 hours: Intake & Output 02/21/19 02/22/19 02/23/19 02/24/19 11:59 11:59 11:59 11:59 Intake Total 2775 / 2775 3974 / 3974 Output Total 50 / 50 Balance 2775 / 2775 3924 / 3924 Weight 216 lb 5 oz 224 lb 6 oz - Constitutional no acute distress - *Routine Respiratory Exam Absent: respiratory distress - *Routine Cardiovascular Exam Present: RRR Progress Note: A&P (1) Abdominal pain Status: Acute Current Visit: Yes (2) Insulin dependent diabetes mellitus Status: Acute Current Visit: Yes (3) Diabetes mellitus, type 2 Status: Acute Current Visit: No (4) Fever Status: Acute Current Visit: No (5) Renal insufficiency Status: Acute Current Visit: Yes (6) C. difficile colitis Status: Acute Assessment and plan: Continue current antibiotics Current Visit: Yes
[2019-02-24 07:17] LABS: Basophils % 0.6 % (0.1-2.0); Eosinophils # 0.1 K/mm3 (0.0-0.4); Eosinophils % 1.1 % (0.1-12.0); Hematocrit 36.6 % (42.0-52.0); Hemoglobin 12.1 g/dL (14.1-18.0); Lymphocytes # 1.6 K/mm3 (0.7-4.5); Lymphocytes % 30.9 % (10-50); Mean Corpuscular Volume 90.8 fl (80-94); Monocytes # 0.4 K/mm3 (0.1-1.0); Monocytes % 8.6 % (1.7-9.3); Neutrophils # 2.9 K/mm3 (1.8-7.8); Neutrophils % 58.7 % (37.0-80.0); Platelet Count 71 K/mm3 (142-424); Red Blood Count 4.03 M/mm3 (4.60-6.20); Red Cell Distribution Width 14.1 % (11.5-17.5)
[2019-02-24 07:35] LABS: Albumin Level 2.8 gm/dL (3.4-5.0); Albumin/Globulin Ratio 0.9 (1.1-1.8); Anion Gap 16.8 mEq/L (5-15); Bilirubin,Total 0.6 mg/dL (0.2-1.0); Calcium 8.1 mg/dL (8.5-10.1); Globulin 3.1 gm/dl (1.3-3.2); Total Protein,Serum 5.9 gm/dL (6.4-8.2)
--- NOTE | 2019-02-24 08:36 | Progress Note ---
Internal Medicine - PN: Nader *Date: 02/24/19 *Time: 08:47 Interval history: His stool studies yesterday returned showing C. difficile. His antibiotic regimen was adjusted. He continued with pain through the day yesterday but then rested fairly well overnight and did not require any morphine until early this morning. He is still having cramping. He is not hungry but has been taking liquids. No vomiting. He had a fever to 101.5 last night. Exam Vital signs and Labs for Last 24 Hours: Temp Pulse Resp BP Pulse Ox 98.8 F 66 18 147/64 H 97 02/24/19 07:46 02/24/19 07:46 02/24/19 07:46 02/24/19 07:46 02/24/19 07:46 Laboratory Results - last 24 hr 02/23/19 06:12: POC Glucose 212 H 02/23/19 06:45: Total Counted 100, Neutrophils % (Manual) 88 H, Lymphocytes % (Manual) 7 L, Monocytes % (Manual) 3, Eosinophils % (Manual) 1, Metamyelocytes % 1.0, Platelet Estimate Moderate decrease, RBC Morphology Normal 02/23/19 07:12: Stl Aeromonas (PCR) Not detected, Stl C. cayetanensis PCR Not detected, Stool Rotavirus (PCR) Not detected, Stl Adenov F 40/41 PCR Not detected, Stool Astrovirus (PCR) Not detected, Stool Campylobacter PCR Not detected, Stl C.difficile Tox PCR Detected A, Stool Cryptosporidium PCR Not detected, Stl E.coli Shiga Tox PCR Not detected, Stool E coli O157 PCR Not detected, Stl Enterotoxigenic E PCR Not detected, Stool EPEC (PCR) Not detected, Stool EAEC (PCR) Not detected, Stl E. histolytica PCR Not detected, Stool Giardia Lamblia PCR Not detected, Stool Salmonella PCR Not detected, Stool Sapovirus (PCR) Not detected, Stl P. shigelloides PCR Not detected, Stl Shigella/EIEC PCR Not detected, St Y.enterocolitica PCR Not detected, Stool Vibrio (PCR) Not detected, Stl Vibrio cholerae PCR Not detected, Stl Norovirus GI/GII PCR Not detected 02/23/19 12:01: POC Glucose 170 H 02/23/19 16:43: POC Glucose 147 H 02/23/19 20:44: POC Glucose 126 H 02/24/19 05:50: POC Glucose 103 02/24/19 06:25: WBC 5.0 D, RBC 4.03 L, Hgb 12.1 L, Hct 36.6 L, MCV 90.8, MCH 29.9, MCHC 33.0, RDW 14.1, Plt Count 71 L D, MPV 8.0, Neut % (Auto) 58.7, Lymph % (Auto) 30.9, [place] % (Auto) 8.6, Eos % (Auto) 1.1, Baso % (Auto) 0.6, Neut # (Auto) 2.9, Lymph # (Auto) 1.6, [place] # (Auto) 0.4, Eos # (Auto) 0.1, Baso # (Auto) 0.0 02/24/19 06:25: Sodium 140, Potassium 4.8, Chloride 109 H, Carbon Dioxide 19 L, Anion Gap 16.8 H, BUN 32 H, Creatinine 1.07 D, Estimated Creat Clear 79, Estimated GFR 66, Est GFR ( Amer) 80 D, Glucose 109 H D, Calcium 8.1 L, Total Bilirubin 0.6, AST 52 H, ALT 39, Alkaline Phosphatase 52, Total Protein 5.9 L, Albumin 2.8 L D, Globulin 3.1, Albumin/Globulin Ratio 0.9 L I & O for Last 24 hours: Intake & Output 02/21/19 02/22/19 02/23/19 02/24/19 11:59 11:59 11:59 11:59 Intake Total 2775 / 2775 4514 / 4514 Output Total 50 / 50 Balance 2775 / 2775 4464 / 4464 Weight 216 lb 5 oz 224 lb 6 oz Narrative: Upon entering the room, he is sleeping quietly. He arouses easily. Lungs are clear anteriorly. Abdomen is soft and nondistended but remains diffusely tender. Bowel sounds are diminished. Extremities no edema Assessment and Plan (1) C. difficile colitis Current visit: Yes Status: Acute Category: Medical Code(s): A04.72 - Enterocolitis due to Clostridium difficile, not specified as recurrent (2) Abdominal pain Current visit: Yes Status: Acute Category: Medical Code(s): R10.9 - Unspecified abdominal pain (3) Insulin dependent diabetes mellitus Current visit: Yes Status: Acute Category: Medical Code(s): E11.9 - Type 2 diabetes mellitus without complications; Z79.4 - technician terminal and repeater (current) use of insulin (4) Diabetes mellitus, type 2 Current visit: No Status: Acute Qualifiers: Diabetes mellitus shelter insulin use: with salvage determiner use Diabetes mellitus complication status: with neurologic complications Diabetes mellitus complication detail: with polyneuropathy Qualified Code(s): E11.42 - Type 2 diabetes mellitus with diabetic polyneuropathy; Z79.4 - technician terminal and repeater (current) use of insulin Category: Medical Code(s): E11.9 - Type 2 diabetes mellitus without complications (5) Fever Current visit: No Status: Acute Category: Medical Code(s): R50.9 - Fever, unspecified (6) Renal insufficiency Current visit: Yes Status: Acute Category: Medical Code(s): N28.9 - Disorder of kidney and ureter, unspecified - Assessment and plan all Dx Assessment and Plan for all problems:: Continue current antibiotic regimen and IV fluids. Continue pain medication. Will advance diet as tolerated.
--- NOTE | 2019-02-25 06:57 | Progress Note ---
Subjective Narrative: The patient is awake and responding appropriately to questions. He states that he "feels a little better this morning". Exam Vital signs and Labs for Last 24 Hours: Temp Pulse Resp BP Pulse Ox 99.5 F 71 18 152/72 H 94 L 02/25/19 04:00 02/25/19 04:00 02/25/19 04:00 02/25/19 04:00 02/25/19 04:00 Laboratory Results - last 24 hr 02/24/19 06:25: WBC 5.0 D, RBC 4.03 L, Hgb 12.1 L, Hct 36.6 L, MCV 90.8, MCH 29.9, MCHC 33.0, RDW 14.1, Plt Count 71 L D, MPV 8.0, Neut % (Auto) 58.7, Lymph % (Auto) 30.9, [place] % (Auto) 8.6, Eos % (Auto) 1.1, Baso % (Auto) 0.6, Neut # (Auto) 2.9, Lymph # (Auto) 1.6, [place] # (Auto) 0.4, Eos # (Auto) 0.1, Baso # (Auto) 0.0 02/24/19 06:25: Sodium 140, Potassium 4.8, Chloride 109 H, Carbon Dioxide 19 L, Anion Gap 16.8 H, BUN 32 H, Creatinine 1.07 D, Estimated Creat Clear 79, Estimated GFR 66, Est GFR ( Amer) 80 D, Glucose 109 H D, Calcium 8.1 L, Total Bilirubin 0.6, AST 52 H, ALT 39, Alkaline Phosphatase 52, Total Protein 5.9 L, Albumin 2.8 L D, Globulin 3.1, Albumin/Globulin Ratio 0.9 L 02/24/19 12:02: POC Glucose 107 02/24/19 17:01: POC Glucose 85 02/24/19 20:39: POC Glucose 102 I & O for Last 24 hours: Intake & Output 02/22/19 02/23/19 02/24/19 02/25/19 11:59 11:59 11:59 11:59 Intake Total 2775 / 2775 4614 / 4614 2343 / 2343 Output Total 50 / 50 825 / 825 Balance 2775 / 2775 4564 / 4564 1518 / 1518 Weight 216 lb 5 oz 224 lb 6 oz 224 lb 7 oz Microbiology Reports for the Last 24 Hours: Microbiology 02/22/19 20:50 Blood Blood Culture - Preliminary NO GROWTH AFTER 48 HOURS 02/22/19 20:50 Blood Blood Culture - Preliminary NO GROWTH AFTER 48 HOURS - Constitutional no acute distress - *Routine Respiratory Exam Absent: respiratory distress - *Routine Cardiovascular Exam Present: RRR Progress Note: A&P (1) C. difficile colitis Status: Acute Assessment and plan: Continuing to slowly improve Continue current regimen Current Visit: Yes (2) Abdominal pain Status: Acute Current Visit: Yes (3) Insulin dependent diabetes mellitus Status: Acute Current Visit: Yes (4) Diabetes mellitus, type 2 Status: Acute Current Visit: No (5) Fever Status: Acute Current Visit: No (6) Renal insufficiency Status: Acute Current Visit: Yes
--- NOTE | 2019-02-25 08:17 | Progress Note ---
<Caroline Álvarez - Last Filed: 02/25/19 08:14> Internal Medicine - PN: Subj *Date: 02/25/19 *Time: 08:14 Interval history: Patient states he feels a little bit better this morning. He did drink some clear liquids this morning and developed some cramping abdominal pain, but this is subsided. He states he was restless throughout the night. His pain is localized mainly in his lower abdomen. Exam Vital signs and Labs for Last 24 Hours: Temp Pulse Resp BP Pulse Ox 99.5 F 71 18 152/72 H 94 L 02/25/19 04:00 02/25/19 04:00 02/25/19 04:00 02/25/19 04:00 02/25/19 04:00 Laboratory Results - last 24 hr 02/24/19 06:25: Sodium 140, Potassium 4.8, Chloride 109 H, Carbon Dioxide 19 L, Anion Gap 16.8 H, BUN 32 H, Creatinine 1.07 D, Estimated Creat Clear 79, Estimated GFR 66, Est GFR ( Amer) 80 D, Glucose 109 H D, Calcium 8.1 L, Total Bilirubin 0.6, AST 52 H, ALT 39, Alkaline Phosphatase 52, Total Protein 5.9 L, Albumin 2.8 L D, Globulin 3.1, Albumin/Globulin Ratio 0.9 L 02/24/19 12:02: POC Glucose 107 02/24/19 17:01: POC Glucose 85 02/24/19 20:39: POC Glucose 102 I & O for Last 24 hours: Intake & Output 02/22/19 02/23/19 02/24/19 02/25/19 11:59 11:59 11:59 11:59 Intake Total 2775 / 2775 4614 / 4614 4365 / 4365 Output Total 50 / 50 825 / 825 Balance 2775 / 2775 4564 / 4564 3540 / 3540 Weight 216 lb 5 oz 224 lb 6 oz 224 lb 7 oz Microbiology Reports for the Last 24 Hours: Microbiology 02/22/19 20:50 Blood Blood Culture - Preliminary NO GROWTH AFTER 48 HOURS 02/22/19 20:50 Blood Blood Culture - Preliminary NO GROWTH AFTER 48 HOURS - Constitutional no acute distress - *Routine Respiratory Exam Present: CTA bilaterally - *Routine Cardiovascular Exam Present: RRR - *Routine Abdominal Exam Present: soft, normoactive bowel sounds, tenderness (diffuse but worse in the bilateral lower quadrants) - *Routine Extremities Exam Absent: cyanosis, clubbing, edema - *Routine Neurological Exam Present: alert Assessment and Plan (1) C. difficile colitis Current visit: Yes Status: Acute Category: Medical Code(s): A04.72 - Enterocolitis due to Clostridium difficile, not specified as recurrent (2) Abdominal pain Current visit: Yes Status: Acute Category: Medical Code(s): R10.9 - Unspecified abdominal pain (3) Insulin dependent diabetes mellitus Current visit: Yes Status: Acute Category: Medical Code(s): E11.9 - Type 2 diabetes mellitus without complications; Z79.4 - termite control representative (current) use of insulin (4) Diabetes mellitus, type 2 Current visit: No Status: Acute Qualifiers: Diabetes mellitus skilled nursing insulin use: with terminal operations manager use Diabetes mellitus complication status: with neurologic complications Diabetes mellitus complication detail: with polyneuropathy Qualified Code(s): 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 difficile and advance diet as tolerated. <Jamir Schumacher - Last Filed: 02/25/19 09:01> Internal Medicine - PN: Subj *Date: 02/25/19 *Time: 09:00 Exam Vital signs and Labs for Last 24 Hours: Temp Pulse Resp BP Pulse Ox 98.6 F 87 18 150/72 H 98 02/25/19 08:00 02/25/19 08:00 02/25/19 08:00 02/25/19 08:00 02/25/19 08:00 Laboratory Results - last 24 hr 02/24/19 12:02: POC Glucose 107 02/24/19 17:01: POC Glucose 85 02/24/19 20:39: POC Glucose 102 I & O for Last 24 hours: Intake & Output 02/22/19 02/23/19 02/24/19 02/25/19 11:59 11:59 11:59 11:59 Intake Total 2775 / 2775 4614 / 4614 4365 / 4365 Output Total 50 / 50 825 / 825 Balance 2775 / 2775 4564 / 4564 3540 / 3540 Weight 216 lb 5 oz 224 lb 6 oz 224 lb 7 oz Microbiology Reports for the Last 24 Hours: Microbiology 02/22/19 20:50 Blood Blood Culture - Preliminary NO GROWTH AFTER 48 HOURS 02/22/19 20:50 Blood Blood Culture - Preliminary NO GROWTH AFTER 48 HOURS Assessment and Plan (1) C. difficile colitis Current visit: Yes Status: Acute Category: Medical Code(s): A04.72 - Enterocolitis due to Clostridium difficile, not specified as recurrent (2) Abdominal pain Current visit: Yes Status: Acute Category: Medical Code(s): R10.9 - Unspecified abdominal pain (3) Insulin dependent diabetes mellitus Current visit: Yes Status: Acute Category: Medical Code(s): E11.9 - Type 2 diabetes mellitus without complications; Z79.4 - senior care (current) use of insulin (4) Diabetes mellitus, type 2 Current visit: No Status: Acute Qualifiers: Diabetes mellitus terminal operations manager insulin use: with terminal operations manager use Diabetes mellitus complication status: with neurologic complications Diabetes mellitus complication detail: with polyneuropathy Qualified Code(s): E11.42 - Type 2 diabetes mellitus with diabetic polyneuropathy; Z79.4 - termite control representative (current) use of insulin Category: Medical Code(s): E11.9 - Type 2 diabetes mellitus without complications (5) Fever Current visit: No Status: Acute Category: Medical Code(s): R50.9 - Fever, unspecified (6) Renal insufficiency Current visit: Yes Status: Acute Category: Medical Code(s): N28.9 - Disorder of kidney and ureter, unspecified - Assessment and plan all Dx Assessment and Plan for all problems:: Patient seen and examined. No fever over night. Abdomen less tender. Continue per orders.
--- NOTE | 2019-02-26 07:15 | Progress Note ---
Subjective Narrative: Per family the patient was placed "back on morphine" yesterday secondary to some increasing pain. Apparently he developed some pain in the upper abdomen and chest. He continues to have some lower abdominal pain. No emesis. He continues to have bowel movements. Exam Vital signs and Labs for Last 24 Hours: Temp Pulse Resp BP Pulse Ox 97.6 F 59 L 18 142/71 H 93 L 02/26/19 04:00 02/26/19 04:00 02/26/19 04:00 02/26/19 04:00 02/26/19 04:00 Laboratory Results - last 24 hr 02/25/19 06:34: POC Glucose 86 02/25/19 11:49: POC Glucose 128 H 02/25/19 16:35: POC Glucose 122 H 02/25/19 20:26: POC Glucose 160 H 02/26/19 06:21: POC Glucose 127 H I & O for Last 24 hours: Intake & Output 02/23/19 02/24/19 02/25/19 02/26/19 11:59 11:59 11:59 11:59 Intake Total 2775 / 2775 4614 / 4614 4465 / 4465 3395 / 3395 Output Total 50 / 50 825 / 825 650 / 650 Balance 2775 / 2775 4564 / 4564 3640 / 3640 2745 / 2745 Weight 216 lb 5 oz 224 lb 6 oz 224 lb 7 oz 222 lb 8 oz - Constitutional Comments: Currently sleeping and seemingly comfortable. - *Routine Respiratory Exam Absent: respiratory distress - *Routine Cardiovascular Exam Present: RRR - *Routine Abdominal Exam Comments: Exam currently deferred to allow patient to rest. Progress Note: A&P (1) C. difficile colitis Status: Acute Assessment and plan: Continue antibiotic therapy Continue serial abdominal exams (re-examine when patient awake) Current Visit: Yes (2) Abdominal pain Status: Acute Current Visit: Yes (3) Insulin dependent diabetes mellitus Status: Acute Current Visit: Yes (4) Diabetes mellitus, type 2 Status: Acute Current Visit: No (5) Fever Status: Acute Current Visit: No (6) Renal insufficiency Status: Acute Current Visit: Yes
--- NOTE | 2019-02-26 08:49 | Progress Note ---
Internal Medicine - PN: Subj *Date: 02/26/19 *Time: 08:46 Interval history: He continued to require morphine through the day yesterday. Per staff, he rested well through the night and has not required morphine since about 2100 last night. Pain seems to be worse after eating and is described as lower abdominal cramping. No nausea or vomiting. He has been afebrile now for 48 hours. Family notes he seems to have some difficulty swallowing but he has no complaints. An additional complaint this morning is left earache. He has only been out of bed to the bathroom. One loose stool reported overnight. He is eating about 25 to 50% of his meals. Exam Vital signs and Labs for Last 24 Hours: Temp Pulse Resp BP Pulse Ox 97.6 F 59 L 18 142/71 H 93 L 02/26/19 04:00 02/26/19 04:00 02/26/19 04:00 02/26/19 04:00 02/26/19 04:00 Laboratory Results - last 24 hr 02/25/19 06:34: POC Glucose 86 02/25/19 11:49: POC Glucose 128 H 02/25/19 16:35: POC Glucose 122 H 02/25/19 20:26: POC Glucose 160 H 02/26/19 06:21: POC Glucose 127 H I & O for Last 24 hours: Intake & Output 02/23/19 02/24/19 02/25/19 02/26/19 11:59 11:59 11:59 11:59 Intake Total 2775 / 2775 4614 / 4614 4465 / 4465 3395 / 3395 Output Total 50 / 50 825 / 825 650 / 650 Balance 2775 / 2775 4564 / 4564 3640 / 3640 2745 / 2745 Weight 216 lb 5 oz 224 lb 6 oz 224 lb 7 oz 222 lb 8 oz Narrative: He is awakened from sleep. He appears in no acute distress. TMs show a small amount of wax bilaterally. No obvious erythema. Nares are patent. Lungs are clear to auscultation. Heart is regular. Abdomen is soft and nondistended. There is diffuse low abdominal tenderness to palpation. Assessment and Plan (1) C. difficile colitis Current visit: Yes Status: Acute Category: Medical Code(s): A04.72 - Enterocolitis due to Clostridium difficile, not specified as recurrent (2) Abdominal pain Current visit: Yes Status: Acute Category: Medical Code(s): R10.9 - Unspecified abdominal pain (3) Insulin dependent diabetes mellitus Current visit: Yes Status: Acute Category: Medical Code(s): E11.9 - Type 2 diabetes mellitus without complications; Z79.4 - residential (current) use of insulin (4) Diabetes mellitus, type 2 Current visit: No Status: Acute Qualifiers: Diabetes mellitus residential insulin use: with intermodal owner operator truck driver use Diabetes mellitus complication status: with neurologic complications Diabetes mellitus complication detail: with polyneuropathy Qualified Code(s): E11.42 - Type 2 diabetes mellitus with diabetic polyneuropathy; Z79.4 - intermodal owner operator truck driver (current) use of insulin Category: Medical Code(s): E11.9 - Type 2 diabetes mellitus without complications (5) Fever Current visit: No Status: Acute Category: Medical Code(s): R50.9 - Fever, unspecified (6) Renal insufficiency Current visit: Yes Status: Acute Category: Medical Code(s): N28.9 - Disorder of kidney and ureter, unspecified (7) Otalgia of left ear Current visit: Yes Status: Acute Category: Medical Code(s): H92.02 - Otalgia, left ear - Assessment and plan all Dx Assessment and Plan for all problems:: Clearly he is improved but still having more pain than I would expect at this stage. We will continue current antibiotic regimen. GI consult when Dr. Alvarez is available tomorrow. Add Protonix. Cortisporin for complaints of ear pain.
--- NOTE | 2019-02-26 09:49 | Progress Note ---
Internal Medicine - PN: Subj *Date: 02/26/19 *Time: 09:48 Exam Vital signs and Labs for Last 24 Hours: Temp Pulse Resp BP Pulse Ox 98.4 F 59 L 17 137/77 94 L 02/26/19 08:30 02/26/19 08:30 02/26/19 08:30 02/26/19 08:30 02/26/19 08:30 Laboratory Results - last 24 hr 02/25/19 06:34: POC Glucose 86 02/25/19 11:49: POC Glucose 128 H 02/25/19 16:35: POC Glucose 122 H 02/25/19 20:26: POC Glucose 160 H 02/26/19 06:21: POC Glucose 127 H I & O for Last 24 hours: Intake & Output 02/23/19 02/24/19 02/25/19 02/26/19 23:59 23:59 23:59 23:59 Intake Total 3939 / 4089 4793 / 4793 4239 / 4239 1638 / 1638 Output Total 50 / 50 1475 / 1475 250 / 250 Balance 3889 / 4039 4793 / 4668 2764 / 2764 1388 / 1388 Weight 98.118 kg 101.77 kg 101.803 kg 100.924 kg Assessment and Plan (1) C. difficile colitis Current visit: Yes Status: Acute Category: Medical Code(s): A04.72 - Enterocolitis due to Clostridium difficile, not specified as recurrent (2) Abdominal pain Current visit: Yes Status: Acute Category: Medical Code(s): R10.9 - Unspecified abdominal pain (3) Insulin dependent diabetes mellitus Current visit: Yes Status: Acute Category: Medical Code(s): E11.9 - Type 2 diabetes mellitus without complications; Z79.4 - adjunct faculty for medical terminology (current) use of insulin (4) Diabetes mellitus, type 2 Current visit: No Status: Acute Qualifiers: Diabetes mellitus detention insulin use: with detention use Diabetes mellitus complication status: with neurologic complications Diabetes mellitus complication detail: with polyneuropathy Qualified Code(s): E11.42 - Type 2 diabetes mellitus with diabetic polyneuropathy; Z79.4 - [facility] (current) use of insulin Category: Medical Code(s): E11.9 - Type 2 diabetes mellitus without complications (5) Fever Current visit: No Status: Acute Category: Medical Code(s): R50.9 - Fever, unspecified (6) Renal insufficiency Current visit: Yes Status: Acute Category: Medical Code(s): N28.9 - Disorder of kidney and ureter, unspecified (7) Otalgia of left ear Current visit: Yes Status: Acute Category: Medical Code(s): H92.02 - Otalgia, left ear The patient's infection will respond to the chosen ABx?: Yes Is the patient receiving the right drug, dose, and route?: Yes Could a more targeted ABx be ordered?: No (STOOL PCR +C. DIFF. AFEBRILE)
[2019-02-27 06:12] LABS: Basophils % 0.6 % (0.1-2.0); Eosinophils # 0.2 K/mm3 (0.0-0.4); Eosinophils % 6.7 % (0.1-12.0); Hematocrit 32.3 % (42.0-52.0); Hemoglobin 10.9 g/dL (14.1-18.0); Lymphocytes # 1.1 K/mm3 (0.7-4.5); Lymphocytes % 31.7 % (10-50); Mean Corpuscular HGB Conc 33.7 g/dL (31.8-35.4); Mean Corpuscular Volume 89.5 fl (80-94); Mean Platelet Volume 7.9 fl (7.4-10.4); Monocytes # 0.3 K/mm3 (0.1-1.0); Neutrophils # 1.7 K/mm3 (1.8-7.8); Platelet Count 78 K/mm3 (142-424); Red Blood Count 3.61 M/mm3 (4.60-6.20); Red Cell Distribution Width 13.8 % (11.5-17.5); White Blood Count 3.3 K/mm3 (4.8-10.8)
[2019-02-27 06:41] LABS: Albumin Level 2.8 gm/dL (3.4-5.0); Albumin/Globulin Ratio 0.9 (1.1-1.8); Bilirubin,Total 0.5 mg/dL (0.2-1.0); Calcium 8.9 mg/dL (8.5-10.1); Globulin 3.2 gm/dl (1.3-3.2)
--- NOTE | 2019-02-27 07:37 | Progress Note ---
Subjective Patient reports: still having pain ((Much improved versus admission)) Exam Vital signs and Labs for Last 24 Hours: Temp Pulse Resp BP Pulse Ox 97.8 F 58 L 18 137/76 94 L 02/27/19 03:51 02/27/19 03:51 02/27/19 03:51 02/27/19 03:51 02/27/19 03:51 Laboratory Results - last 24 hr 02/26/19 11:24: POC Glucose 170 H 02/26/19 16:59: POC Glucose 161 H 02/26/19 20:16: POC Glucose 200 H 02/27/19 05:23: POC Glucose 114 H 02/27/19 05:34: WBC 3.3 L D, RBC 3.61 L, Hgb 10.9 L, Hct 32.3 L, MCV 89.5, MCH 30.1, MCHC 33.7, RDW 13.8, Plt Count 78 L, MPV 7.9, Neut % (Auto) 52.0, Lymph % (Auto) 31.7, [place] % (Auto) 9.0, Eos % (Auto) 6.7, Baso % (Auto) 0.6, Neut # (Auto) 1.7 L, Lymph # (Auto) 1.1, [place] # (Auto) 0.3, Eos # (Auto) 0.2, Baso # (Auto) 0.0 02/27/19 05:34: Sodium 141, Potassium 4.0, Chloride 106, Carbon Dioxide 30 D, Anion Gap 9.0, BUN 10 D, Creatinine 0.86, Estimated Creat Clear 83, Estimated GFR 86, Est GFR ( Amer) 104 D, Glucose 113 H, Calcium 8.9, Total Bilirubin 0.5, AST 51 H, ALT 30, Alkaline Phosphatase 51, Total Protein 6.0 L, Albumin 2.8 L, Globulin 3.2, Albumin/Globulin Ratio 0.9 L, Amylase 60, Lipase 294 I & O for Last 24 hours: Intake & Output 02/24/19 02/25/19 02/26/19 02/27/19 11:59 11:59 11:59 11:59 Intake Total 4614 / 4614 4465 / 4465 3855 / 3855 2544 / 2544 Output Total 50 / 50 825 / 825 900 / 900 600 / 600 Balance 4564 / 4564 3640 / 3640 2955 / 2955 1944 / 1944 Weight 224 lb 6 oz 224 lb 7 oz 222 lb 8 oz 219 lb 2 oz - Constitutional no acute distress - *Routine Respiratory Exam Absent: respiratory distress - *Routine Cardiovascular Exam Present: RRR - *Routine Abdominal Exam Present: soft Progress Note: A&P (1) C. difficile colitis Status: Acute Assessment and plan: Overall, continuing to very slowly improved. He continues to have fairly significant/intermittent abdominal pain. Gastroenterology consultation has been ordered and is pending. Continue current antibiotics for now Follow-up pending gastroenterology consultation Current Visit: Yes (2) Abdominal pain Status: Acute Current Visit: Yes (3) Insulin dependent diabetes mellitus Status: Acute Current Visit: Yes (4) Diabetes mellitus, type 2 Status: Acute Current Visit: No (5) Fever Status: Acute Current Visit: No (6) Renal insufficiency Status: Acute Current Visit: Yes (7) Otalgia of left ear Status: Acute Current Visit: Yes
--- NOTE | 2019-02-27 07:52 | Progress Note ---
<Lucia Cleary - Last Filed: 02/27/19 07:49> Internal Medicine - PN: Subj *Date: 02/27/19 *Time: 07:49 Interval history: Patient continues to have abdominal pain which required medicine earlier this a.m. Bowels are moving and are loose. He is voiding QS. He ambulates with assistance. He is n.p.o. this morning for GI consult. He denies shortness of breath. He has a periodic cough. He has left anterior chest discomfort with movement and on deep inspiration. Exam Vital signs and Labs for Last 24 Hours: Temp Pulse Resp BP Pulse Ox 97.8 F 58 L 18 137/76 94 L 02/27/19 03:51 02/27/19 03:51 02/27/19 03:51 02/27/19 03:51 02/27/19 03:51 Laboratory Results - last 24 hr 02/26/19 11:24: POC Glucose 170 H 02/26/19 16:59: POC Glucose 161 H 02/26/19 20:16: POC Glucose 200 H 02/27/19 05:23: POC Glucose 114 H 02/27/19 05:34: WBC 3.3 L D, RBC 3.61 L, Hgb 10.9 L, Hct 32.3 L, MCV 89.5, MCH 30.1, MCHC 33.7, RDW 13.8, Plt Count 78 L, MPV 7.9, Neut % (Auto) 52.0, Lymph % (Auto) 31.7, [place] % (Auto) 9.0, Eos % (Auto) 6.7, Baso % (Auto) 0.6, Neut # (Auto) 1.7 L, Lymph # (Auto) 1.1, [place] # (Auto) 0.3, Eos # (Auto) 0.2, Baso # (Auto) 0.0 02/27/19 05:34: Sodium 141, Potassium 4.0, Chloride 106, Carbon Dioxide 30 D, Anion Gap 9.0, BUN 10 D, Creatinine 0.86, Estimated Creat Clear 83, Estimated GFR 86, Est GFR ( Amer) 104 D, Glucose 113 H, Calcium 8.9, Total Bilirubin 0.5, AST 51 H, ALT 30, Alkaline Phosphatase 51, Total Protein 6.0 L, Albumin 2.8 L, Globulin 3.2, Albumin/Globulin Ratio 0.9 L, Amylase 60, Lipase 294 I & O for Last 24 hours: Intake & Output 02/24/19 02/25/19 02/26/19 02/27/19 11:59 11:59 11:59 11:59 Intake Total 4614 / 4614 4465 / 4465 3855 / 3855 2544 / 2544 Output Total 50 / 50 825 / 825 900 / 900 600 / 600 Balance 4564 / 4564 3640 / 3640 2955 / 2955 1944 / 1944 Weight 224 lb 6 oz 224 lb 7 oz 222 lb 8 oz 219 lb 2 oz - Constitutional no acute distress Comments: Hard of hearing. Assisted up to a chair without difficulty. - *Routine Respiratory Exam Comments: Pain on inspiration. Lungs clear to auscultation bilaterally A&P with good bilateral breath sounds. - *Routine Cardiovascular Exam Present: RRR - *Routine Abdominal Exam Present: soft, normoactive bowel sounds, tenderness (In all lower quadrants) - *Routine Extremities Exam Absent: edema, calf tenderness - *Routine Neurological Exam Present: alert, oriented X3 Hard of hearing Assessment and Plan (1) C. difficile colitis Current visit: Yes Status: Acute Category: Medical Code(s): A04.72 - Enterocolitis due to Clostridium difficile, not specified as recurrent (2) Abdominal pain Current visit: Yes Status: Acute Category: Medical Code(s): R10.9 - Unspecified abdominal pain (3) Insulin dependent diabetes mellitus Current visit: Yes Status: Acute Category: Medical Code(s): E11.9 - Type 2 diabetes mellitus without complications; Z79.4 - local intermodal truck driver (current) use of insulin (4) Diabetes mellitus, type 2 Current visit: No Status: Acute Qualifiers: Diabetes mellitus keno terminal operator insulin use: with keno terminal operator use Diabetes mellitus complication status: with neurologic complications Diabetes mellitus complication detail: with polyneuropathy Qualified Code(s): E11.42 - Type 2 diabetes mellitus with diabetic polyneuropathy; Z79.4 - local intermodal truck driver (current) use of insulin Category: Medical Code(s): E11.9 - Type 2 diabetes mellitus without complicati ons (5) Fever Current visit: No Status: Acute Category: Medical Code(s): R50.9 - Fever, unspecified (6) Renal insufficiency Current visit: Yes Status: Acute Category: Medical Code(s): N28.9 - Disorder of kidney and ureter, unspecified (7) Otalgia of left ear Current visit: Yes Status: Acute Category: Medical Code(s): H92.02 - Otalgia, left ear - Assessment and plan all Dx Assessment and Plan for all problems:: GI consult today. Continue current care. <WinsomeJamir eMdina - Last Filed: 02/27/19 08:29> Internal Medicine - PN: Subj *Date: 02/27/19 *Time: 08:28 Exam Vital signs and Labs for Last 24 Hours: Temp Pulse Resp BP Pulse Ox 97.8 F 56 L 18 146/68 H 97 02/27/19 07:49 02/27/19 07:49 02/27/19 07:49 02/27/19 07:49 02/27/19 07:49 Laboratory Results - last 24 hr 02/26/19 11:24: POC Glucose 170 H 02/26/19 16:59: POC Glucose 161 H 02/26/19 20:16: POC Glucose 200 H 02/27/19 05:23: POC Glucose 114 H 02/27/19 05:34: WBC 3.3 L D, RBC 3.61 L, Hgb 10.9 L, Hct 32.3 L, MCV 89.5, MCH 30.1, MCHC 33.7, RDW 13.8, Plt Count 78 L, MPV 7.9, Neut % (Auto) 52.0, Lymph % (Auto) 31.7, [place] % (Auto) 9.0, Eos % (Auto) 6.7, Baso % (Auto) 0.6, Neut # (Auto) 1.7 L, Lymph # (Auto) 1.1, [place] # (Auto) 0.3, Eos # (Auto) 0.2, Baso # (Auto) 0.0 02/27/19 05:34: Sodium 141, Potassium 4.0, Chloride 106, Carbon Dioxide 30 D, Anion Gap 9.0, BUN 10 D, Creatinine 0.86, Estimated Creat Clear 83, Estimated GFR 86, Est GFR ( Amer) 104 D, Glucose 113 H, Calcium 8.9, Total Bilirubin 0.5, AST 51 H, ALT 30, Alkaline Phosphatase 51, Total Protein 6.0 L, Albumin 2.8 L, Globulin 3.2, Albumin/Globulin Ratio 0.9 L, Amylase 60, Lipase 294 I & O for Last 24 hours: Intake & Output 02/24/19 02/25/19 02/26/19 02/27/19 11:59 11:59 11:59 11:59 Intake Total 4614 / 4614 4465 / 4465 3855 / 3855 2544 / 2544 Output Total 50 / 50 825 / 825 900 / 900 600 / 600 Balance 4564 / 4564 3640 / 3640 2955 / 2955 1944 / 1944 Weight 224 lb 6 oz 224 lb 7 oz 222 lb 8 oz 219 lb 2 oz Assessment and Plan (1) C. difficile colitis Current visit: Yes Status: Acute Category: Medical Code(s): A04.72 - Enterocolitis due to Clostridium difficile, not specified as recurrent (2) Abdominal pain Current visit: Yes Status: Acute Category: Medical Code(s): R10.9 - Unspecified abdominal pain (3) Insulin dependent diabetes mellitus Current visit: Yes Status: Acute Category: Medical Code(s): E11.9 - Type 2 diabetes mellitus without complications; Z79.4 - local intermodal truck driver (current) use of insulin (4) Diabetes mellitus, type 2 Current visit: No Status: Acute Qualifiers: Diabetes mellitus intermediate insulin use: with keno terminal operator use Diabetes mellitus complication status: with neurologic complications Diabetes mellitus complication detail: with polyneuropathy Qualified Code(s): E11.42 - Type 2 diabetes mellitus with diabetic polyneuropathy; Z79.4 - local intermodal truck driver (current) use of insulin Category: Medical Code(s): E11.9 - Type 2 diabetes mellitus without complications (5) Fever Current visit: No Status: Acute Category: Medical Code(s): R50.9 - Fever, unspecified (6) Renal insufficiency Current visit: Yes Status: Acute Category: Medical Code(s): N28.9 - Disorder of kidney and ureter, unspecified (7) Otalgia of left ear Current visit: Yes Status: Acute Category: Medical Code(s): H92.02 - Otalgia, left ear - Assessment and plan all Dx Assessment and Plan for all problems:: Concur with above. He has improved to a point but progress has plateaued. GI consult today for further recommendations.
--- NOTE | 2019-02-27 12:33 | Consult Report ---
<Angelica Mcnally - Last Filed: 02/27/19 12:29> *Admission Date: 02/22/19 *Reason for consult:: Abdominal Pain, c.diff colitis *History of present illness: This is an 78-year-old gentleman with a past medical history of notably uncontrolled diabetes, hypertension, hyperlipidemia and significantly hard of hearing. He has had multiple ear surgeries and cholecystectomy and a groin hernia surgery in the past. He reports he had had abdominal pain ongoing for well over a week at this point. It started off intermittent and then became very acute and constant 5 to 6 days ago. He reports to the ER and had a CT abdomen/pelvis that showed cirrhosis with splenomegaly thickening of the distal esophagus concerning for esophagitis and colonic feces concerning for constipation. The patient underwent an enema which produced results. However, after the patient was admitted to the hospital, he developed nausea a single episode of vomiting, fever and diarrhea. Stool panel was C. difficile positive and he was started on p.o. Vanco and IV Flagyl. He spiked a fever as high as 101.8. He has had abdominal pain ongoing now for 5 days that is somewhat better than previous but has not resolved. He is still quite TTP on exam bilateral lower abdominal quadrants and mildly TTP epigastric area. The patient reports he did not know he had his history of cirrhosis. He does report that he had a instance of hepatitis diagnosis when he was a very young man and had jaundice during that.. He does not know which type of hepatitis at the time. The patient denies any abnormal bleeding or clotting. He denies any melena or hematochezia. He reports he has minimal heartburn and is never had C. difficile prior to this episode. Patient's last colonoscopy was more than 10 years ago which he reports is normal. However, his nephew had colon cancer and his daughter has had multiple polyps removed. Patient reports he is never had an EGD. He does report that his hemoglobin A1c has been running more than 9 and he is a relatively uncontrolled diabetic. His WBCs are also low at 3.3 H History Medical History: Reports:: BPH, Diabetes Mellitus Type 2, Hyperlipidemia, Hypertension Denies:: Cancer, Diabetes Mellitus Type 1, MRSA *Have you ever received a pneumonia vaccine?: Yes *Have you received a flu vaccine this season?: No Other Medical History: Reports: Arthritis (OSTEOARTHRITIS), Other (Sleep apnea) Laterality Cases: Bilateral: Myringotomy (Ear Tubes) Other Surgeries: Yes: Cholecystectomy, Colonoscopy, Hernia Repair, Other Amputation: No Fractures: No - *Social History Educational Level: Attended Grade School Smoking Status: Former smoker Tobacco Type: cigarettes # Packs/Day (cigarettes): 1 Smoking End Date: 1973 Alcohol Intake: never Substance Use Type: denies use *Occupational Status:: retired Housing: house Household Members: spouse *Travel in the last 8 weeks: None Family Hx:: Coronary Artery Disease Review of Systems - Constitutional Reports fever(s), Denies weight gain, Denies weight loss - Eyes Denies blurry vision, Denies pain, Denies sensitivity to light - ENT Reports abnormal hearing, Reports difficulty swallowing, Denies dizziness, Denies hoarseness, Denies lip swelling, Denies sore throat, Denies throat swelling, Denies dizziness - *Cardiovascular Denies chest pain, Denies shortness of breath, Denies leg swelling - *Respiratory Denies chest congestion, Denies shortness of breath - *Gastrointestinal Reports abdominal pain, Reports change in bowel habits, Reports loose stools, Reports difficulty swallowing, Reports nausea, Reports pain with swallowing, Denies bright, red blood in stools, Denies black, tarry stools Comments: Reports bilateral lower abdominal pain with fever, N/V and diarrhea. Has had some painful swallowing and "trouble swallowing" over this past weekend - *Genitourinary Denies difficulty urinating, Denies urinary frequency - *Musculoskeletal Denies joint pain, Denies back pain, Denies body aches - *Neurologic Reports weakness, Denies confusion, Denies dizziness, Denies frequent falls, Denies headache(s) - Endocrine Denies cold intolerance, Denies excessive sweating, Denies flushing Comments: Reports uncontrolled diabetes - Hematologic/Lymphatic Denies easy bleeding, Denies easy bruising Meds Home Medications Medication Instructions Recorded Confirmed Type Aspirin [Aspirin 81mg EC Tab] 81 mg PO DAILY 06/23/17 02/22/19 History Insulin Glargine,Hum.rec.anlog 22 units SQ BID 06/23/17 02/23/19 History [Lantus Insulin 100units/mL 10mL vial] Meloxicam 15 mg PO DAILY 06/23/17 02/23/19 History Metformin HCl [Glucophage 500mg 500 mg PO BID 06/23/17 02/22/19 History Tablet] Pravastatin Sodium [Pravachol 40mg 80 mg PO HS 06/23/17 02/22/19 History Tablet] Ciprofloxacin HCl/Dexameth 4 drp OTIC (EAR) BID PRN 02/22/19 02/22/19 History [Ciprodex] Gabapentin [Gabapentin 400mg Cap] 400 mg PO HS 02/23/19 02/23/19 History Meclizine HCl [Meclizine 25mg Tab] 25 mg PO TIDP PRN 02/23/19 02/23/19 History Ramipril 5 mg PO DAILY 02/23/19 02/23/19 History Allergies Allergy/AdvReac Type Severity Reaction Status Date / Time No Known Allergies Allergy Verified 11/24/18 13:31 Exam Vital signs and Labs for Last 24 Hours: Temp Pulse Resp BP Pulse Ox 97.8 F 56 L 18 146/68 H 97 02/27/19 07:49 02/27/19 07:49 02/27/19 07:49 02/27/19 07:49 02/27/19 07:49 Laboratory Results - last 24 hr 02/26/19 11:24: POC Glucose 170 H 02/26/19 16:59: POC Glucose 161 H 02/26/19 20:16: POC Glucose 200 H 02/27/19 05:23: POC Glucose 114 H 02/27/19 05:34: WBC 3.3 L D, RBC 3.61 L, Hgb 10.9 L, Hct 32.3 L, MCV 89.5, MCH 30.1, MCHC 33.7, RDW 13.8, Plt Count 78 L, MPV 7.9, Neut % (Auto) 52.0, Lymph % (Auto) 31.7, Hand % (Auto) 9.0, Eos % (Auto) 6.7, Baso % (Auto) 0.6, Neut # (Auto) 1.7 L, Lymph # (Auto) 1.1, Hand # (Auto) 0.3, Eos # (Auto) 0.2, Baso # (Auto) 0.0 02/27/19 05:34: Sodium 141, Potassium 4.0, Chloride 106, Carbon Dioxide 30 D, Anion Gap 9.0, BUN 10 D, Creatinine 0.86, Estimated Creat Clear 83, Estimated GFR 86, Est GFR ( Amer) 104 D, Glucose 113 H, Calcium 8.9, Total Bilirubin 0.5, AST 51 H, ALT 30, Alkaline Phosphatase 51, Total Protein 6.0 L, Albumin 2.8 L, Globulin 3.2, Albumin/Globulin Ratio 0.9 L, Amylase 60, Lipase 294 02/27/19 10:53: POC Glucose 108 I & O for Last 24 hours: Intake & Output 02/25/19 02/26/19 02/27/19 02/28/19 11:59 11:59 11:59 11:59 Intake Total 4465 3855 2674 Output Total 825 900 900 Balance 3640 2955 1774 Weight 101.803 kg 100.924 kg 99.393 kg Radiology Reports for the Last 24 Hours: PROCEDURE: CT ABDOMEN PELVIS WO CON CLINICAL HISTORY: abdomen pain Generalized abdominal pain COMPARISON: None TECHNIQUE: Axial images obtained with sagittal and coronal reformats. All CT scans at the facility use one or more dose reduction, viz: automated exposure control, ma/kV adjustment per patient size (including targeted exams where dose is matched to indication, i.e. head), or iterative reconstruction technique. FINDINGS: There is cardiomegaly with coronary artery calcifications. There is a small hiatal hernia with thickening of the distal esophagus at the GE junction and small nodes in the adjacent soft tissues at this area. Cirrhotic appearing liver incompletely evaluated without contrast. Small hiatal hernia. Prior cholecystectomy. Unremarkable adrenal glands, and pancreas. No renal or ureteral calculi. Hypoattenuation in the mid aspect of the right kidney at 2.3 cm incompletely evaluated. May represent a cyst and could be confirmed with ultrasound. Splenomegaly at 16 cm. Stomach is mildly distended with an digested food particles. There are small lymph nodes present in the periportal region and celiac area along with varices in the celiac region. There is colonic diverticula noted but no evidence of diverticulitis. Moderate amount of stool is present in the colon. No acute bony anomaly. Degenerative changes are present in the spine. No intestinal obstruction or free air. Unremarkable appendix. No evidence of appendicitis or diverticulitis. No pelvic mass or abnormal fluid collection apparent IMPRESSION: 1. Hiatal hernia with thickening of the distal esophageal wall which may be related to reflux esophagitis. There are few small lymph nodes in the celiac axis and portal region. Consider direct imaging for further evaluation of the distal esophagus. 2. Colonic fecal stasis 3. Cirrhosis Dictated by: Indio Marquez MD 02/23/2019 05:21 - Constitutional no acute distress, obese, cooperative Comments: Very hard of hearing - *Routine HEENT Exam Head: Present: normocephalic, atraumatic Eye: Present: EOMI ENT: Present: mucous membranes moist - *Routine Neck Exam Present: supple, full ROM - *Routine Respiratory Exam Present: CTA bilaterally. Absent: accessory muscle use - *Routine Cardiovascular Exam Present: RRR - *Routine Abdominal Exam Present: soft, normoactive bowel sounds, tenderness. Absent: mass Comments: moderately ttp LLQ and RLQ with some mild epigastric ttp - *Routine Extremities Exam Present: full ROM. Absent: cyanosis, edema - *Routine Skin Exam Present: intact, dry, warm - *Routine Neurological Exam Present: alert, oriented X3 (very [place]) - Detailed Abdominal Exam Palpation/Percussion: Absent: hepatomegaly, Jerome's sign Internal Medicine - CN: Reslt - Labs CBC & Chem 7: 02/27/19 05:34 02/27/19 05:34 Labs: Short CBC 02/27/19 Range/Units 05:34 WBC 3.3 L D (4.8-10.8) K/mm3 Hgb 10.9 L (14.1-18.0) g/dL Hct 32.3 L (42.0-52.0) % Plt Count 78 L (142-424) K/mm3 BMP 02/27/19 05:34 Sodium 141 Potassium 4.0 Chloride 106 Carbon Dioxide 30 D BUN 10 D Creatinine 0.86 Glucose 113 H Calcium 8.9 Liver Function 02/27/19 Range/Units 05:34 Total Bilirubin 0.5 (0.2-1.0) mg/dL AST 51 H (15-37) U/L ALT 30 (12-78) U/L Alkaline Phosphatase 51 (46-116) U/L Albumin 2.8 L (3.4-5.0) gm/dL Assessment and Plan (1) C. difficile colitis Current visit: Yes Status: Acute Category: Medical Code(s): A04.72 - Enterocolitis due to Clostridium difficile, not specified as recurrent Patient denies any history of C. difficile. C. difficile is positive by PCR. Recommend checking C. difficile toxin to be sure this is the acute infection. Will do flex sig today. Continue p.o. vancomycin and IV Flagyl. Recommend patient follow-up in our office in outpatient after completion of antibiotics. (2) Abdominal pain Current visit: Yes Status: Acute Qualifiers: Abdominal location: epigastric Qualified Code(s): R10.13 - Epigastric pain Category: Medical Code(s): R10.9 - Unspecified abdominal pain Patient reports abdominal pain is somewhat improved since admission not resolved. CT scan 4 days ago showed colonic feces consistent with constipation but eventually developed diarrhea with nausea, single episode of vomiting and fever as high as 101.8. It also showed thickening of distal esophagus concerning for esophagitis. Patient is TTP over epigastric area and is anemic at 10.9/32.3 with apparent cirrhosis with splenomegaly. Continue p.o. vancomycin and IV Flagyl. Awaiting C. difficile toxin testing. We will do EGD today. (3) Insulin dependent diabetes mellitus Current visit: Yes Status: Acute Category: Medical Code(s): E11.9 - Type 2 diabetes mellitus without complications; Z79.4 - intermediate (current) use of insulin (4) Diabetes mellitus, type 2 Current visit: No Status: Acute Qualifiers: Diabetes mellitus [facility] insulin use: with [facility] use Diabetes mellitus complication status: with neurologic complications Diabetes mellitus complication detail: with polyneuropathy Qualified Code(s): E11.42 - Type 2 diabetes mellitus with diabetic polyneuropathy; Z79.4 - intermediate (current) use of insulin Category: Medical Code(s): E11.9 - Type 2 diabetes mellitus without complications (5) Fever Current visit: No Status: Acute Category: Medical Code(s): R50.9 - Fever, unspecified (6) Renal insufficiency Current visit: Yes Status: Acute Category: Medical Code(s): N28.9 - Disorder of kidney and ureter, unspecified (7) Otalgia of left ear Current visit: Yes Status: Acute Category: Medical Code(s): H92.02 - Otalgia, left ear (8) Cirrhosis Current visit: Yes Status: Acute Category: Medical Code(s): K74.60 - Unspecified cirrhosis of liver Incidental finding on CT scan with splenomegaly and a low platelet count of 78. Bilirubin ALT and alk phos are all within normal limits but AST is slightly elevated at 51. Patient is an uncontrolled diabetic and is obese, concerning for fatty liver disease. However, patient reports that he had hepatitis infection as a very young man of unknown type. Will recommend hepatitis panel and further follow-up as an outpatient in office after discharge. Also patient is anemic with a hemoglobin of 10.9 and given cirrhosis with splenomegaly and low platelet count, will recommend EGD today, even though Hemoccult is negative. <KimMukul Rhoades - Last Filed: 02/27/19 15:18> *History of present illness: Based upon the CAT scan findings and history of cirrhosis and C. difficile, I will plan EGD/sigmoidoscopy. I would continue vancomycin. The patient's primary symptom remains abdominal pain. We will discuss treatment options subsequent to procedures. Exam Vital signs and Labs for Last 24 Hours: Temp Pulse Resp BP Pulse Ox 97.8 F 56 L 18 146/68 H 97 02/27/19 07:49 02/27/19 07:49 02/27/19 07:49 02/27/19 07:49 02/27/19 07:49 Laboratory Results - last 24 hr 02/26/19 11:24: POC Glucose 170 H 02/26/19 16:59: POC Glucose 161 H 02/26/19 20:16: POC Glucose 200 H 02/27/19 05:23: POC Glucose 114 H 02/27/19 05:34: WBC 3.3 L D, RBC 3.61 L, Hgb 10.9 L, Hct 32.3 L, MCV 89.5, MCH 30.1, MCHC 33.7, RDW 13.8, Plt Count 78 L, MPV 7.9, Neut % (Auto) 52.0, Lymph % (Auto) 31.7, Hand % (Auto) 9.0, Eos % (Auto) 6.7, Baso % (Auto) 0.6, Neut # (Auto) 1.7 L, Lymph # (Auto) 1.1, Hand # (Auto) 0.3, Eos # (Auto) 0.2, Baso # (Auto) 0.0 02/27/19 05:34: Sodium 141, Potassium 4.0, Chloride 106, Carbon Dioxide 30 D, Anion Gap 9.0, BUN 10 D, Creatinine 0.86, Estimated Creat Clear 83, Estimated GFR 86, Est GFR ( Amer) 104 D, Glucose 113 H, Calcium 8.9, Total Bilirubin 0.5, AST 51 H, ALT 30, Alkaline Phosphatase 51, Total Protein 6.0 L, Albumin 2.8 L, Globulin 3.2, Albumin/Globulin Ratio 0.9 L, Amylase 60, Lipase 294 02/27/19 10:53: POC Glucose 108 I & O for Last 24 hours: Intake & Output 02/24/19 02/25/19 02/26/19 02/27/19 23:59 23:59 23:59 23:59 Intake Total 4793 / 4793 4239 / 4239 3382 / 3382 1030 / 1030 Output Total 1475 / 1475 850 / 850 300 / 300 Balance 4793 / 4668 2764 / 2764 2532 / 2532 730 / 730 Weight 101.77 kg 101.803 kg 100.924 kg 99.393 kg Internal Medicine - CN: Reslt - Labs CBC & Chem 7: 02/27/19 05:34 02/27/19 05:34 Labs: Short CBC 02/27/19 Range/Units 05:34 WBC 3.3 L D (4.8-10.8) K/mm3 Hgb 10.9 L (14.1-18.0) g/dL Hct 32.3 L (42.0-52.0) % Plt Count 78 L (142-424) K/mm3 BMP 02/27/19 05:34 Sodium 141 Potassium 4.0 Chloride 106 Carbon Dioxide 30 D BUN 10 D Creatinine 0.86 Glucose 113 H Calcium 8.9 Liver Function 02/27/19 Range/Units 05:34 Total Bilirubin 0.5 (0.2-1.0) mg/dL AST 51 H (15-37) U/L ALT 30 (12-78) U/L Alkaline Phosphatase 51 (46-116) U/L Albumin 2.8 L (3.4-5.0) gm/dL Assessment and Plan (1) C. difficile colitis Current visit: Yes Status: Acute Category: Medical Code(s): A04.72 - Enterocolitis due to Clostridium difficile, not specified as recurrent (2) Abdominal pain Current visit: Yes Status: Acute Qualifiers: Abdominal location: epigastric Qualified Code(s): R10.13 - Epigastric pain Category: Medical Code(s): R10.9 - Unspecified abdominal pain (3) Insulin dependent diabetes mellitus Current visit: Yes Status: Acute Category: Medical Code(s): E11.9 - Type 2 diabetes mellitus without complications; Z79.4 - intermediate (current) use of i nsulin (4) Diabetes mellitus, type 2 Current visit: No Status: Acute Qualifiers: Diabetes mellitus [facility] use: with [facility] Diabetes mellitus complication status: with neurologic complications Diabetes mellitus complication detail: with polyneuropathy Qualified Code(s): E11.42 - Type 2 diabetes mellitus with diabetic polyneuropathy; Z79.4 - intermediate (current) use of insulin Category: Medical Code(s): E11.9 - Type 2 diabetes mellitus without complications (5) Fever Current visit: No Status: Acute Category: Medical Code(s): R50.9 - Fever, unspecified (6) Renal insufficiency Current visit: Yes Status: Acute Category: Medical Code(s): N28.9 - Disorder of kidney and ureter, unspecified (7) Otalgia of left ear Current visit: Yes Status: Acute Category: Medical Code(s): H92.02 - Otalgia, left ear (8) Cirrhosis Current visit: Yes Status: Acute Category: Medical Code(s): K74.60 - Unspecified cirrhosis of liver
--- NOTE | 2019-02-27 15:33 | Procedure Note ---
[facility] Procedure Note Procedure Note:: Upper Endoscopy Procedure Report: Esophagogastroduodenoscopy with cold biopsies Endoscopost: Mukul Alvarez II, MD Referring Physician: Adam Schumacher MD Date of Procedure: February 27, 2019 Equipment: Olympus GIF 180 standard upper endoscope Sedation: MAC sedation Indications: Mr. George is an 78-year-old gentleman with a past medical history of notably uncontrolled diabetes, hypertension, hyperlipidemia and significantly hard of hearing. He has had multiple ear surgeries and cholecystectomy and a groin hernia surgery in the past. He reports he had had abdominal pain ongoing for well over a week at this point. It started off intermittently and then became very acute and constant 5 to 6 days ago. He came to the emergency department and had a CT abdomen/pelvis that showed cirrhosis with splenomegaly thickening of the distal esophagus concerning for esophagitis and colonic feces concerning for constipation. The patient underwent an enema which produced results. However, after the patient was admitted to the hospital, he developed nausea a single episode of vomiting, fever and diarrhea. Stool panel was C. difficile positive and he was started on oral Vanco and IV Flagyl. He spiked a fever as high as 101.8. He has had abdominal pain ongoing now for 5 days that is somewhat better than previous but has not resolved. The patient reports he did not know he had his history of cirrhosis. He does report that he had a instance of hepatitis diagnosis when he was a very young man and had jaundice during that. He does not know which type of hepatitis at the time. The patient denies any abnormal bleeding or clotting. He denies any melena or hematochezia. He reports he has minimal heartburn and is never had C. difficile prior to this episode. Patient's last colonoscopy was more than 10 years ago which he reports is normal. However, his nephew had colon cancer and his daughter has had multiple polyps removed. Patient reports he is never had an EGD. He does report that his hemoglobin A1c has been running more than 9 and he is a relatively uncontrolled diabetic. His WBCs are also low at 3.3. The patient's hemoglobin and hematocrit were 10.9 and 32.3. EGD/flexible sigmoidoscopy are performed diagnostically. Procedure: Prior to the procedure, a history and physical exam was performed, and patient's medications and allergies were reviewed. The risks, benefits and alternatives of the sedation and procedure were discussed with the patient. All questions were answered and informed consent was obtained. The patient was brought to the procedure room. Patient identification and proposed procedure were verified by the physician and the nurse. The patient was placed in a left lateral decubitus position and the scope was passed under direct vision. Throughout the procedure, the patient's blood pressure, pulse, and oxygen saturations were monitored continuously. The upper GI endoscopy was accomplished without difficulty. The patient tolerated the procedure well. Findings: The scope was passed directly into the upper esophagus and advanced to the third portion of the duodenum. The post bulbar duodenum and duodenal bulb were normal with normal mucosa and conniventes. The scope was withdrawn through a normal duodenal bulb and pylorus into the stomach. There was mild reactive gastropathy of the antrum. There were 2 angiodysplasia/AVMs along the greater and lesser curvature but there was no evidence of GAVE or portal gastropathy. Upon retroflexion there was no hiatal hernia but there appeared to be a gastric fundic varix that was sizable. Cold biopsies were taken from the antrum for histology. The scope was then withdrawn into the esophagus. There were grade 2 esophageal varices without any stigmata. There was no evidence of reflux esophagitis or Garcia's. The remainder of the esophageal mucosa was normal. Impression: 1. Grade 2 esophageal varices without stigmata 2. Gastric fundic varices (moderate sized) 3. Small gastric body AVM/angiodysplasias x2 (nonbleeding) and no GAVE Plan: I will follow-up the biopsies. The patient does have portal hypertension with varices but has not had prior bleeding. He is mildly anemic. The upper endoscopic findings are consistent with cirrhosis of undetermined etiology. I will proceed with sigmoidoscopy.
--- NOTE | 2019-02-27 15:50 | Procedure Note ---
[facility] Procedure Note Procedure Note:: Colonoscopy to hepatic flexure procedure Report: Colonoscopy to hepatic flexure with cold biopsies Endoscopist: Mukul Alvarez II, MD Referring physician: Adam Schumacher MD Date of Procedure: February 27, 2019 Equipment: Olympus 180 variable stiffness pediatric colonoscope Sedation: MAC sedation Indication: Mr. George is an 78-year-old gentleman with newly diagnosed cirrhosis presumably secondary to HENRY/NAFLD. The patient also complained of lower abdominal pain. A CAT scan showed cirrhosis with splenomegaly and thickening of the lower esophagus. His EGD showed grade 2 esophageal varices as well as some gastric fundic varices. The patient did have a PCR gastrointestinal panel that was positive for C. difficile. He also had fever. There was abundant constipation. The patient does have a prior history of jaundice and hepatitis many years ago. The patient does state that his nephew had colon cancer and his daughter had multiple colonic polyps. His last colonoscopy was more than 10 years ago. He is borderline anemic with hemoglobin and hematocrit of 10.9 and 32.3. The patient is on oral vancomycin and intravenous Flagyl. He reports ongoing abdominal discomfort which has improved. He reports no rectal bleeding. He has had some diarrhea. Procedure: Prior to the procedure, a history and physical exam was performed, and patient's medications and allergies were reviewed. The risks, benefits and alternatives of the sedation and procedure were discussed with the patient. All questions were answered and informed consent was obtained. The patient was brought to the procedure room. Patient identification and proposed procedure were verified by the physician and the nurse. The patient was placed in a left lateral decubitus position and the scope was passed under direct vision. Throughout the procedure, the patient's blood pressure, pulse, and oxygen saturations were monitored continuously. The colonoscopy was accomplished without difficulty. The patient tolerated the procedure well. Findings: On digital rectal examination there was normal rectal tone. There were small external tags. The scope was then inserted through the anal canal into the rectum and advanced to the hepatic flexure. The scope was not advanced further due to abundant liquid brown stool. Upon withdrawal, there was fair preparation. The transverse colon was essentially normal. There were scattered extensive diverticuli in the descending and sigmoid colon. There was a single 4 mm polyp at the rectosigmoid junction removed via cold biopsy. Random cold biopsies were taken x4 of the descending and sigmoid colon. There was no evidence of colitis or pseudomembranes. Upon retroflexion within the rectum there were grade 1 internal hemorrhoids. Impression: 1. Diminutive rectosigmoid polyp 2. Extensive left-sided diverticulosis Plan: The scope was advanced to the hepatic flexure. There was no evidence of pseudomembranes or any gross evidence of colitis. The positive C. difficile PCR panel can be colonization rather than pathogenicity and pseudomembranes are pathognomonic of C. difficile colitis. I would check C. difficile toxin and complete the 10-day course of vancomycin orally. I would not use Flagyl because there is a moderate amount of C. difficile resistance to metronidazole. I would recommend an antispasmodic (dicyclomine or ) which should help with his abdominal discomfort. He will need to follow-up as an outpatient in regard to his advanced liver disease. We will calculate MELD score. I would recommend checking ammonia level, alpha-fetoprotein and hepatic fibrotic markers. I would also exclude chronic viral hepatitis, autoimmune hepatitis or inherited forms of liver disease. Most likely this represents HENRY.
--- NOTE | 2019-02-27 15:54 | Progress Note ---
[facility] Anesthesia Checklist - Patient Identification Patient Identification: Arm Band - Structural Data Admitted From: Home Planned Operative Procedure/s: egd/flexible sigmoidoscopy Consent for Planned Operative Procedure(s) Verified: Yes Verified Documents: Surgical Consent, History and Physical - NPO Status Verified Time NPO: 00:00 - Additional verifications Anesthesia Reactions: No - Airway Assessment C-Spine Mobility Assessed: Yes (mp2) TMJ Mobility Assessed: Yes Dentition: Edentulous - Neurological Assessment Level of Consciousness: Awake, Alert - Anesthesia Plan Anesthesia Risk discussed: Yes Anesthesia Plan: Verified ASA Class: III Anesthesia Type: MAC [facility] History I have reviewed the patient's past medical history: Yes Medical History: Reports:: BPH, Diabetes Mellitus Type 2, Hyperlipidemia, Hypertension Denies:: Cancer, Diabetes Mellitus Type 1, MRSA *Have you ever received a pneumonia vaccine?: Yes *Have you received a flu vaccine this season?: No Other Medical History: Reports: Arthritis (OSTEOARTHRITIS), Other (Sleep apnea, cirrhosis) Anesthesia experience/problems:: nac Laterality Cases: Bilateral: Myringotomy (Ear Tubes) Other Surgeries: Yes: Cholecystectomy, Colonoscopy, Hernia Repair, Other Amputation: No Fractures: No - *Social History Educational Level: Attended Grade School Smoking Status: Former smoker Tobacco Type: cigarettes # Packs/Day (cigarettes): 1 Smoking End Date: 1973 Alcohol Intake: never Substance Use Type: denies use *Occupational Status:: retired Housing: house Household Members: spouse *Travel in the last 8 weeks: None Family Hx:: Coronary Artery Disease
--- NOTE | 2019-02-28 08:23 | Progress Note ---
<Lucia Cleary - Last Filed: 02/28/19 08:24> Internal Medicine - PN: Subj *Date: 02/28/19 *Time: 08:24 Interval history: Feels better and would like to go home. Did eat a little bit yesterday. Fewer stools. Did not require pain medicine for abdominal pain. Denies chest pain today and no shortness of breath. He has been up in the chair. He did have an EGD and sigmoidoscopy per Dr. Alvarez yesterday. EGD Impression: 1. Grade 2 esophageal varices without stigmata 2. Gastric fundic varices (moderate sized) 3. Small gastric body AVM/angiodysplasias x2 (nonbleeding) and no GAVE Sigmoidoscopy Impression: 1. Diminutive rectosigmoid polyp 2. Extensive left-sided diverticulosis Plan and recommendations as per Dr. Alvarez: The scope was advanced to the hepatic flexure. There was no evidence of pseudomembranes or any gross evidence of colitis. The positive C. difficile PCR panel can be colonization rather than pathogenicity and pseudomembranes are pathognomonic of C. difficile colitis. I would check C. difficile toxin and complete the 10-day course of vancomycin orally. I would not use Flagyl because there is a moderate amount of C. difficile resistance to metronidazole. I would recommend an antispasmodic (dicyclomine or ) which should help with his abdominal discomfort. He will need to follow-up as an outpatient in regard to his advanced liver disease. We will calculate MELD score. I would recommend checking ammonia level, alpha-fetoprotein and hepatic fibrotic markers. I would also exclude chronic viral hepatitis, autoimmune hepatitis or inherited forms of liver disease. Most likely this represents HENRY. Exam Vital signs and Labs for Last 24 Hours: Temp Pulse Resp BP Pulse Ox 98.3 F 68 18 144/84 H 96 02/28/19 07:47 02/28/19 07:47 02/28/19 07:47 02/28/19 07:47 02/28/19 07:47 Laboratory Results - last 24 hr 02/27/19 10:53: POC Glucose 108 02/27/19 17:12: POC Glucose 107 02/27/19 18:36: Ammonia 5 L 02/27/19 20:12: POC Glucose 132 H 02/28/19 06:11: POC Glucose 96 I & O for Last 24 hours: Intake & Output 02/25/19 02/26/19 02/27/19 02/28/19 11:59 11:59 11:59 11:59 Intake Total 4465 / 4465 3855 / 3855 2674 / 2674 2536 / 2536 Output Total 825 / 825 900 / 900 900 / 900 2250 / 2250 Balance 3640 / 3640 2955 / 2955 1774 / 1774 286 / 286 Weight 224 lb 7 oz 222 lb 8 oz 219 lb 2 oz 218 lb Microbiology Reports for the Last 24 Hours: Microbiology 02/22/19 20:50 Blood Blood Culture - Final NO GROWTH AFTER 5 DAYS 02/22/19 20:50 Blood Blood Culture - Final NO GROWTH AFTER 5 DAYS - Constitutional no acute distress Comments: Sitting in comfort chair at bedside. He appears comfortable. He smiles and laughs. - *Routine Respiratory Exam Present: CTA bilaterally (Anteriorly and posteriorly) - *Routine Cardiovascular Exam Present: RRR - *Routine Abdominal Exam Present: soft, normoactive bowel sounds, tenderness (In all lower quadrants) - *Routine Extremities Exam Absent: edema, calf tenderness - *Routine Neurological Exam Present: alert, oriented X3 Assessment and Plan (1) C. difficile colitis Current visit: Yes Status: Acute Category: Medical Code(s): A04.72 - Enterocolitis due to Clostridium difficile, not specified as recurrent (2) Abdominal pain Current visit: Yes Status: Acute Qualifiers: Abdominal location: epigastric Qualified Code(s): R10.13 - Epigastric pain Category: Medical Code(s): R10.9 - Unspecified abdominal pain (3) Insulin dependent diabetes mellitus Current visit: Yes Status: Acute Category: Medical Code(s): E11.9 - Type 2 diabetes mellitus without complications; Z79.4 - MCC (current) use of insulin (4) Diabetes mellitus, type 2 Current visit: No Status: Acute Qualifiers: Diabetes mellitus custodial insulin use: with custodial use Diabetes mellitus complication status: with neurologic complications Diabetes mellitus complication detail: with polyneuropathy Qualified Code(s): E11.42 - Type 2 diabetes mellitus with diabetic polyneuropathy; Z79.4 - terminal gauger (current) use of insulin Category: Medical Code(s): E11.9 - Type 2 diabetes mellitus without complications (5) Fever Current visit: No Status: Acute Category: Medical Code(s): R50.9 - Fever, unspecified (6) Renal insufficiency Current visit: Yes Status: Acute Category: Medical Code(s): N28.9 - Disorder of kidney and ureter, unspecified (7) Otalgia of left ear Current visit: Yes Status: Acute Category: Medical Code(s): H92.02 - Otalgia, left ear (8) Cirrhosis Current visit: Yes Status: Acute Category: Medical Code(s): K74.60 - Unspecified cirrhosis of liver - Assessment and plan all Dx Assessment and Plan for all problems:: Saline lock. May be discharged later on today. <Jamir Schumacher - Last Filed: 02/28/19 08:46> Internal Medicine - PN: Subj *Date: 02/28/19 *Time: 08:45 Exam Vital signs and Labs for Last 24 Hours: Temp Pulse Resp BP Pulse Ox 98.3 F 68 18 144/84 H 96 02/28/19 07:47 02/28/19 07:47 02/28/19 07:47 02/28/19 07:47 02/28/19 07:47 Laboratory Results - last 24 hr 02/27/19 10:53: POC Glucose 108 02/27/19 17:12: POC Glucose 107 02/27/19 18:36: Ammonia 5 L 02/27/19 20:12: POC Glucose 132 H 02/28/19 06:11: POC Glucose 96 I & O for Last 24 hours: Intake & Output 02/25/19 02/26/19 02/27/19 02/28/19 11:59 11:59 11:59 11:59 Intake Total 4465 / 4465 3855 / 3855 2674 / 2674 2536 / 2536 Output Total 825 / 825 900 / 900 900 / 900 2250 / 2250 Balance 3640 / 3640 2955 / 2955 1774 / 1774 286 / 286 Weight 224 lb 7 oz 222 lb 8 oz 219 lb 2 oz 218 lb Microbiology Reports for the Last 24 Hours: Microbiology 02/22/19 20:50 Blood Blood Culture - Final NO GROWTH AFTER 5 DAYS 02/22/19 20:50 Blood Blood Culture - Final NO GROWTH AFTER 5 DAYS Assessment and Plan (1) C. difficile colitis Current visit: Yes Status: Acute Category: Medical Code(s): A04.72 - Enterocolitis due to Clostridium difficile, not specified as recurrent (2) Abdominal pain Current visit: Yes Status: Acute Qualifiers: Abdominal location: epigastric Qualified Code(s): R10.13 - Epigastric pain Category: Medical Code(s): R10.9 - Unspecified abdominal pain (3) Insulin dependent diabetes mellitus Current visit: Yes Status: Acute Category: Medical Code(s): E11.9 - Type 2 diabetes mellitus without complications; Z79.4 - MCC (current) use of insulin (4) Diabetes mellitus, type 2 Current visit: No Status: Acute Qualifiers: Diabetes mellitus custodial insulin use: with custodial use Diabetes mellitus complication status: with neurologic complications Diabetes mellitus complication detail: with polyneuropathy Qualified Code(s): E11.42 - Type 2 diabetes mellitus with diabetic polyneuropathy; Z79.4 - MCC (current) use of insulin Category: Medical Code(s): E11.9 - Type 2 diabetes mellitus without complications (5) Fever Current visit: No Status: Acute Category: Medical Code(s): R50.9 - Fever, unspecified (6) Renal insufficiency Current visit: Yes Status: Acute Category: Medical Code(s): N28.9 - Disorder of kidney and ureter, unspecified (7) Otalgia of left ear Current visit: Yes Status: Acute Category: Medical Code(s): H92.02 - Otalgia, left ear (8) Cirrhosis Current visit: Yes Status: Acute Category: Medical Code(s): K74.60 - Unspecified cirrhosis of liver - Assessment and plan all Dx Assessment and Plan for all problems:: Pt seen and examined. Dr. Alvarez consult and recommendations noted. Encourage diet today. Possible discharge home later today or tomorrow.
[2019-03-01 08:14] LABS: Hepatitis B Surface Antigen Negative (Negative)
--- NOTE | 2019-03-01 15:37 | Discharge Summary ---
General - General Admission date:: 02/22/19 Discharge date: 02/28/19 HPI HPI: Mr. George is an 78-year-old white male with HTN, HLP, and Type 2 DM who was admitted through the emergency room with acute abdominal pain. His stated that he had had some abdominal pain for 3 days prior to admission, but it became more severe the day of admission. He had not had vomiting. She was not sure when his last bowel movement was. He complained of diffuse tenderness. In the emergency room, Dr. Hubbard did a rectal exam and found no stool or blockage. He was running a fever. He received pain medication in the emergency room, Dilaudid and Toradol, but was still moaning with abdominal pain on the am of H&P. He is diabetic. Hospital Course Hospital Course: The patient had an abdominal CT which showed some reflux esophagitis and some small lymph nodes in the celiac axis and portal region. There was colonic fecal stasis and cirrhosis. The patient's neutrophil percentage was elevated and he was admitted and started on ertapenem and Dilaudid. The Dilaudid caused confusion, therefore it was changed to morphine. Surgery was consulted as well. A diarrhea panel was ordered and returned positive for C. difficile. His antibiotics were switched from the ertapenem to Flagyl. He was seen in consultation by Dr. Cornelius who added oral vancomycin as well. His symptoms slowly began improving and he was able to tolerate clear liquids. He did have some increasing pain and developed some pain in the upper abdomen and chest. GI was consulted and Protonix was added. He was seen by Dr. Alvarez who recommended a hepatitis panel due to cirrhosis on CT scan and the patient's history of hepatitis. Due to his decreasing hemoglobin, Dr. Alvarez also recommended an EGD/sigmoidoscopy to rule out a bleed. He was in agreement with the vancomycin for the C. difficile. The EGD revealed grade 2 esophageal varices, gastric fundic varices, and a small gastric body AVM/angiodysplasias x2. Dr. Alvarez wanted to follow-up with the patient on his biopsies. He felt he did have portal hypertension with varices but no bleeding. He felt he had cirrhosis of undetermined etiology. The sigmoidoscopy revealed a diminutive rectosigmoid polyp and extensive left-sided diverticulosis. He ordered a C. difficile toxin and felt the patient would need a 10-day course of oral vancomycin. He also recommended an antispasmodic to help with abdominal discomfort. He wanted to see the patient in regards to his advanced liver disease on an outpatient basis. The patient was able to tolerate a diet and had fewer stools. He did not require more pain medication and wanted to go home. He was stable to be discharged home on continued oral vancomycin and dicyclomine. He will follow-up with both Dr. Alvarez and Dr. Schumacher. Objective Vital signs: Temp Pulse Resp BP Pulse Ox 98.4 F 66 17 153/78 H 96 02/28/19 15:24 02/28/19 15:24 02/28/19 15:24 02/28/19 15:24 02/28/19 15:24 Narrative: - Constitutional no acute distress Comments: Sitting in comfort chair at bedside. He appears comfortable. He smiles and laughs. - *Routine Respiratory Exam Present: CTA bilaterally (Anteriorly and posteriorly) - *Routine Cardiovascular Exam Present: RRR - *Routine Abdominal Exam Present: soft, normoactive bowel sounds, tenderness (In all lower quadrants) - *Routine Extremities Exam Absent: edema, calf tenderness - *Routine Neurological Exam Present: alert, oriented X3 Results Labs on day of discharge: Labs from last 24 hours 02/28/19 16:32 POC Glucose 139 H DS: Diagnosis - Discharge Diagnosis (1) C. difficile colitis Status: Acute (2) Abdominal pain Status: Acute (3) Insulin dependent diabetes mellitus Status: Acute (4) Diabetes mellitus, type 2 Status: Acute (5) Fever Status: Acute (6) Renal insufficiency Status: Acute (7) Otalgia of left ear Status: Acute (8) Cirrhosis Status: Acute Discharge Plan - Patient Discharge Instructions ACTIVITY: Limited activity DIET: advance to your usual diet Patient Instructions: Antibiotic-associated Colitis -- C difficile, DI for Antibiotic -- associated Colitis -- C difficile, DI for Cirrhosis - Follow up Plan Follow up with: Mukul Alvarez MD [Staff Physician] - (2-3 weeks) Jamir Schumacher MD [Primary Care Provider] - 1 week Disposition: Home, Self-Residential Medications: Home Medications Medication Instructions Recorded Confirmed Type Aspirin [Aspirin 81mg EC Tab] 81 mg PO DAILY 06/23/17 02/22/19 History Insulin Glargine,Hum.rec.anlog 22 units SQ BID 06/23/17 02/23/19 History [Lantus Insulin 100units/mL 10mL vial] Meloxicam 15 mg PO DAILY 06/23/17 02/23/19 History Metformin HCl [Glucophage 500mg 500 mg PO BID 06/23/17 02/22/19 History Tablet] Pravastatin Sodium [Pravachol 40mg 80 mg PO HS 06/23/17 02/22/19 History Tablet] Ciprofloxacin HCl/Dexameth [Cipro 4 drp OTIC (EAR) BID PRN 02/22/19 02/22/19 History 0.3%-Dex 0.1% Otic Susp 7.5mL] Gabapentin [Gabapentin 400mg Cap] 400 mg PO HS 02/23/19 02/23/19 History Meclizine HCl [Meclizine 25mg Tab] 25 mg PO TIDP PRN 02/23/19 02/23/19 History Ramipril 5 mg PO DAILY 02/23/19 02/23/19 History Dicyclomine HCl [Bentyl 10mg 20 mg PO Q6HP PRN #24 cap 02/28/19 Rx capsule] Vancomycin HCl [Vancocin HCl] 125 mg PO QID #16 cap 02/28/19 Rx Prescriptions/Medication Reconciliation: New Dicyclomine HCl [Bentyl 10mg capsule] 20 mg PO Q6HP PRN #24 cap PRN Reason: Cramping Vancomycin HCl [Vancocin HCl] 125 mg PO QID #16 cap Continued Aspirin [Aspirin 81mg EC Tab] 81 mg PO DAILY Insulin Glargine,Hum.rec.anlog [Lantus Insulin 100units/mL 10mL vial] 22 units SQ BID Metformin HCl [Glucophage 500mg Tablet] 500 mg PO BID Pravastatin Sodium [Pravachol 40mg Tablet] 80 mg PO HS Meloxicam 15 mg PO DAILY Gabapentin [Gabapentin 400mg Cap] 400 mg PO HS Ramipril 5 mg PO DAILY Meclizine HCl [Meclizine 25mg Tab] 25 mg PO TIDP PRN PRN Reason: Dizziness Ciprofloxacin HCl/Dexameth [Cipro 0.3%-Dex 0.1% Otic Susp 7.5mL] 4 drp OTIC (EAR) BID PRN PRN Reason: EAR ACHE - Problem Reconciliation Problems Reviewed?: Yes
[2019-03-02 07:16] LABS: Hepatitis C Antibody <0.1 s/co ratio (0.0-0.9)
== END 2019-02-28 17:53 | disposition home or self-care (01) | DRG 372 ==
LOC: 2ND 18:03 → ER 18:03 → 2ND 23:15 → OBSVTOIN 23:15
PROVIDERS: ADMIT Family Medicine; ATTEND Family Medicine
CPT/HCPCS: 36415; 74176; 80048; 80053; 80074; 81001; 81596; 82105; 82140; 82150; 82272; 82550; 82553; 82962; 83605; 83690; 84484; 85007; 85025; 85651; 86140; 87040; 87324; 87506; 93005; 96365; 96375; 96376; 99285; G0328; J1335; J2405; J3370

== ENCOUNTER → 2019-03-20 08:54 | Outpatient (POV) | payer MEDICARE, SELFPAY | PROVIDERS: PCP Family Medicine; Visit Provider Nurse Practitioner Family | DX: Z00.00 Encounter for general adult medical examination without abnormal findings (principal) ==

== ENCOUNTER → 2019-03-22 07:17 | Outpatient (CLI) | payer MEDICARE, SELFPAY ==
--- NOTE | 2019-03-22 07:40 | US_ITS ---
PROCEDURE: US ABDOMEN LIMITED CLINICAL INDICATION: CIRRHOSIS,ABN LIVER FUNCTION TEST,PORTAL HTN,C-DIFF,DIVERTIC COMPARISON: No exams were available for comparison FINDINGS: Common bile duct is normal measuring 3.7 millimeters. Liver echogenicity is normal however there is mild peripheral lobulated contour without enlargement or focal lesion. Prior cholecystectomy. Visualized portions of the pancreas and IVC are normal. There is a upper pole right renal cortical anechoic lesion measuring 1.5 centimeters. The remainder of the right kidney appears normal. Portal vein is patent. IMPRESSION: Hepatic cirrhosis. Cholecystectomy. Right renal benign cyst. Dictated by: Hair Silvestre 03/22/2019 09:37 Electronically signed by Hair Silvestre in [place] 03/22/2019 09:37
[2019-03-22 08:05] LABS: Basophils # 0.1 K/mm3 (0-0.2); Eosinophils # 0.2 K/mm3 (0.0-0.4); Eosinophils % 4.3 % (0.1-12.0); Hematocrit 38.6 % (42.0-52.0); Hemoglobin 12.3 g/dL (14.1-18.0); Lymphocytes # 1.6 K/mm3 (0.7-4.5); Lymphocytes % 29.7 % (10-50); Mean Corpuscular HGB Conc 31.9 g/dL (31.8-35.4); Mean Corpuscular Hemoglobin 29.1 pg (27.0-31.2); Mean Corpuscular Volume 91.2 fl (80-94); Mean Platelet Volume 8.5 fl (7.4-10.4); Monocytes # 0.4 K/mm3 (0.1-1.0); Monocytes % 7.7 % (1.7-9.3); Neutrophils # 3.2 K/mm3 (1.8-7.8); Neutrophils % 57.2 % (37.0-80.0); Platelet Count 124 K/mm3 (142-424); Red Blood Count 4.23 M/mm3 (4.60-6.20); Red Cell Distribution Width 14.6 % (11.5-17.5); White Blood Count 5.5 K/mm3 (4.8-10.8)
[2019-03-22 08:16] LABS: Prothrombin Time 11.4 seconds (9.4-11.8)
[2019-03-22 11:46] LABS: Alanine Aminotransferase 27 U/L (12-78); Albumin Level 3.9 gm/dL (3.4-5.0); Albumin/Globulin Ratio 1.1 (1.1-1.8); Alkaline Phosphatase 60 U/L (46-116); Anion Gap 13.3 mEq/L (5-15); Aspartate Amino Transferase 38 U/L (15-37); Blood Urea Nitrogen 16 mg/dL (7-18); Calcium 9.7 mg/dL (8.5-10.1); Carbon Dioxide 28 mmol/L (21.0-32.0); Chloride 104 mmol/L (98-107); Creatinine,Serum 1.07 mg/dL (0.70-1.30); Estimated Glomerular Filt Rate 66 ml/min (>60); Ferritin 271 ng/mL (8-388); GFR (African American) 80 ML/MIN (>60); Globulin 3.6 gm/dl (1.3-3.2); Glucose 102 mg/dL (74-106); Potassium 4.3 mmoL/L (3.5-5.1); Sodium 141 mmol/L (136-145); Total Protein,Serum 7.5 gm/dL (6.4-8.2)
[2019-03-23 14:12] LABS: Ceruloplasmin 21.7 mg/dL (16.0-31.0); Immunoglobulin G, Qn 1374 mg/dL (700-1600)
[2019-03-23 16:08] LABS: Iron 103 ug/dL (38-169); Iron Saturation 40 % (15-55); UIBC 153 ug/dL (111-343)
[2019-03-23 23:11] LABS: Actin (Smooth Muscle) Antibody 5 Units (0-19); Angiotensin Converting Enzyme <15 U/L (14-82); Mitochondrial (M2) Antibody <20.0 Units (0.0-20.0)
[2019-03-23 23:12] LABS: Deamidated Gliadin Abs, IgA 10 units (0-19); Deamidated Gliadin Abs, IgG 2 units (0-19); Endomysial IgA Antibody Negative (Negative); Immunoglobulin A, Qn 429 mg/dL (61-437); Immunoglobulin M, Qn 30 mg/dL (15-143); Liver-Kidney Microsomal Ab <1.0 Units (0.0-20.0); Tissue Transglutaminase IgA Ab <2 U/mL (0-3); Tissue Transglutaminase IgG Ab <2 U/mL (0-5)
[2019-03-24 17:10] LABS: Antinuclear Antibodies, IFA Negative (.)
[2019-03-25 12:26] LABS: Reticulin IgA Antibody Negative titer (Neg:<1:2.5)
[2019-03-28 07:12] LABS: Alpha-1-Antitrypsin 170 mg/dL (90-200)
== END ==
PROVIDERS: PCP Family Medicine; Visit Provider Nurse Practitioner Family
DX: K74.60 Unspecified cirrhosis of liver (principal); R94.5 Abnormal results of liver function studies
CPT/HCPCS: 36415; 76705; 80053; 81256; 82103; 82104; 82164; 82390; 82728; 82784; 83516; 83540; 83550; 85025; 85610; 86038; 86255; 86256; 86376

== ENCOUNTER → 2019-04-18 09:55 | Outpatient (CLI) | payer MEDICARE, SELFPAY ==
[2019-04-18 12:53] VITALS: BMI 25.9
--- NOTE | 2019-04-19 08:34 | DIET.NUTRFU ---
Outpatient Nutritional Assessment completed by [facility] has been done under my supervision.
== END ==
PROVIDERS: PCP Family Medicine; Visit Provider Internal Medicine Gastroenterology
DX: Z71.3 Dietary counseling and surveillance; K74.60 Unspecified cirrhosis of liver; E11.9 Type 2 diabetes mellitus without complications; Z79.4 Long term (current) use of insulin; Z79.84 Long term (current) use of oral hypoglycemic drugs
CPT/HCPCS: 97802

== ENCOUNTER → 2019-06-19 08:51 | Outpatient (POV) | payer MEDICARE, SELFPAY ==
[2019-06-19 10:59] LABS: INR 1.09 (0.9-1.1); Prothrombin Time 11.3 seconds (9.4-11.8)
[2019-06-19 11:04] LABS: Basophils # 0.1 K/mm3 (0-0.2); Basophils % 1.2 % (0.1-2.0); Eosinophils # 0.2 K/mm3 (0.0-0.4); Eosinophils % 3.4 % (0.1-12.0); Hematocrit 37.1 % (42.0-52.0); Hemoglobin 11.6 g/dL (14.1-18.0); Lymphocytes # 1.2 K/mm3 (0.7-4.5); Lymphocytes % 27.5 % (10-50); Mean Corpuscular HGB Conc 31.3 g/dL (31.8-35.4); Mean Corpuscular Hemoglobin 28.2 pg (27.0-31.2); Mean Platelet Volume 8.3 fl (7.4-10.4); Monocytes # 0.3 K/mm3 (0.1-1.0); Monocytes % 6.4 % (1.7-9.3); Neutrophils # 2.8 K/mm3 (1.8-7.8); Neutrophils % 61.5 % (37.0-80.0); Platelet Count 104 K/mm3 (142-424); Red Blood Count 4.12 M/mm3 (4.60-6.20); Red Cell Distribution Width 14.4 % (11.5-17.5); White Blood Count 4.5 K/mm3 (4.8-10.8)
[2019-06-19 11:10] LABS: Ammonia 23 umol/L (19-54)
[2019-06-19 11:57] LABS: Alanine Aminotransferase 25 U/L (12-78); Albumin Level 3.7 gm/dL (3.4-5.0); Albumin/Globulin Ratio 1.2 (1.1-1.8); Alkaline Phosphatase 54 U/L (46-116); Anion Gap 14.8 mEq/L (5-15); Aspartate Amino Transferase 32 U/L (15-37); Bilirubin,Total 0.6 mg/dL (0.2-1.0); Blood Urea Nitrogen 19 mg/dL (7-18); Calcium 9.5 mg/dL (8.5-10.1); Carbon Dioxide 26 mmol/L (21.0-32.0); Chloride 110 mmol/L (98-107); Estimated Glomerular Filt Rate 72 ml/min (>60); Ferritin 204 ng/mL (8-388); GFR (African American) 87 ML/MIN (>60); Globulin 3.1 gm/dl (1.3-3.2); Glucose 97 mg/dL (74-106); Potassium 4.8 mmoL/L (3.5-5.1); Sodium 146 mmol/L (136-145); Total Protein,Serum 6.8 gm/dL (6.4-8.2)
[2019-06-20 05:08] LABS: Iron 70 ug/dL (38-169); Iron Saturation 27 % (15-55); UIBC 186 ug/dL (111-343)
[2019-06-20 07:17] LABS: AFP, Tumor Marker 2.6 ng/mL (0.0-8.3)
== END ==
PROVIDERS: Visit Provider Nurse Practitioner Family
DX: R94.5 Abnormal results of liver function studies (principal); K74.60 Unspecified cirrhosis of liver; K76.9 Liver disease, unspecified
CPT/HCPCS: 36415; 80053; 82105; 82140; 82728; 83540; 83550; 85025; 85610

== ENCOUNTER → 2019-09-08 07:47 | Outpatient (CLI) | payer MEDICARE, SELFPAY ==
--- NOTE | 2019-09-08 07:48 | US_ITS ---
PROCEDURE: US ABDOMEN LIMITED CLINICAL INDICATION: ABNORMAL LIVER FUNCTION,CIRRHOSIS Follow-up cirrhosis COMPARISON: US ABDOMEN LIMITED from 03/22/2019 FINDINGS: PANCREAS: Unremarkable. No obvious mass or abnormal fluid collection. No ductal dilatation LIVER: There is coarse echogenicity of the liver as before. There is appropriate direction of blood flow within the portal vein. The portal vein is upper normal at 14 mm. RIGHT KIDNEY: There is a small right renal cyst at 2.4 cm GALLBLADDER: There has been a prior cholecystectomy. Common bile duct is normal at 6 mm. IMPRESSION: Overall no change in the [place] cirrhosis with appropriate direction of blood flow within the portal vein which is slightly prominent at 14 mm Prior cholecystectomy Right renal cyst Dictated by: Indio Marquez MD 09/08/2019 14:37 Electronically signed by Indio Marquez MD in [facility] 09/08/2019 14:37
[2019-09-08 08:06] LABS: Basophils # 0.1 K/mm3 (0-0.2); Eosinophils # 0.2 K/mm3 (0.0-0.4); Eosinophils % 4.2 % (0.1-12.0); Hematocrit 33.8 % (42.0-52.0); Hemoglobin 11.7 g/dL (14.1-18.0); Lymphocytes # 1.3 K/mm3 (0.7-4.5); Lymphocytes % 26.4 % (10-50); Mean Corpuscular HGB Conc 34.7 g/dL (31.8-35.4); Mean Corpuscular Hemoglobin 30.9 pg (27.0-31.2); Mean Platelet Volume 8.4 fl (7.4-10.4); Monocytes # 0.4 K/mm3 (0.1-1.0); Monocytes % 8.4 % (1.7-9.3); Neutrophils % 60.1 % (37.0-80.0); Platelet Count 90 K/mm3 (142-424); Red Cell Distribution Width 13.9 % (11.5-17.5)
[2019-09-08 08:09] LABS: INR 1.08 (0.9-1.1); Prothrombin Time 11.2 seconds (9.4-11.8)
[2019-09-08 08:15] LABS: Ammonia 44 umol/L (9-30)
[2019-09-08 10:29] LABS: Chloride 110 mmol/L (98-107); Potassium 4.8 mmoL/L (3.5-5.1); Sodium 142 mmol/L (136-145)
[2019-09-08 10:31] LABS: Blood Urea Nitrogen 23 mg/dl (9-20); Estimated Glomerular Filt Rate 64 ml/min (>60); GFR (African American) 78 ML/MIN (>60)
[2019-09-08 10:32] LABS: Alanine Aminotransferase 22 U/L (12-78); Albumin Level 3.6 g/dl (3.5-5.0); Albumin/Globulin Ratio 1.2 (1.1-1.8); Alkaline Phosphatase 52 U/L (38-126); Anion Gap 9.8 mEq/L (5-15); Aspartate Amino Transferase 43 U/L (17-59); Bilirubin,Total 0.7 mg/dl (0.2-1.3); Calcium 9.7 mg/dl (8.4-10.2); Carbon Dioxide 27 mmol/L (22.0-30.0); Globulin 2.9 g/dL (1.3-3.2); Glucose 80 mg/dl (74-100); Total Protein,Serum 6.5 g/dl (6.3-8.2)
[2019-09-08 11:07] LABS: Ferritin 105 ng/ml (17.9-464)
[2019-09-09 07:18] LABS: Iron 72 ug/dL (38-169); UIBC 182 ug/dL (111-343)
[2019-09-09 09:52] LABS: AFP, Tumor Marker 3.2 ng/mL (0.0-8.3); Iron Saturation 28 % (15-55)
== END ==
PROVIDERS: PCP Family Medicine; Visit Provider Nurse Practitioner Family
DX: R94.5 Abnormal results of liver function studies (principal); K74.60 Unspecified cirrhosis of liver; K76.9 Liver disease, unspecified
CPT/HCPCS: 36415; 76705; 80053; 82105; 82140; 82728; 83540; 83550; 85025; 85610

== ENCOUNTER → 2019-09-19 17:12 | Outpatient (CLI) | payer MEDICARE, SELFPAY ==
[2019-09-19 17:19] LABS: Adenovirus F 40/41, stool Not Detected (NotDetected); Astrovirus Not Detected (NotDetected); Campylobacter Not Detected (NotDetected); Clostridium Difficile A/B, PCR Not Detected (NotDetected); Cryptosporidium Not Detected (NotDetected); Cyclospora Cayetanesis Not Detected (NotDetected); Entamoeba histolytica Not Detected (NotDetected); Enteroaggregative E coli Not Detected (NotDetected); Enteropathogenic E coli Not Detected (NotDetected); Enterotoxigenic E coli Not Detected (NotDetected); Giardia lamblia Not Detected (NotDetected); Norovirus Not Detected (NotDetected); Plesimonas Shigalloides, PCR Not Detected (NotDetected); Rotavirus A Not Detected (NotDetected); Salmonella, PCR Not Detected (NotDetected); Sapovirus Not Detected (NotDetected); Shiga-like toxin E coli Not Detected (NotDetected); Shigella Enterovasive E coli Not Detected (NotDetected); Vibrio Cholerae Not Detected (NotDetected); Vibrio, PCR Not Detected (NotDetected); Yersinia Entercolitica, PCR Not Detected (NotDetected)
== END ==
PROVIDERS: Visit Provider Family Medicine
DX: R19.7 Diarrhea, unspecified (principal)
CPT/HCPCS: 87507

== ENCOUNTER → 2019-11-04 12:36 | Outpatient (CLI) | payer MEDICARE, SELFPAY ==
[2019-11-04 12:52] LABS: Adenovirus F 40/41, stool Not Detected (NotDetected); Astrovirus Not Detected (NotDetected); Campylobacter Not Detected (NotDetected); Clostridium Difficile A/B, PCR Not Detected (NotDetected); Cryptosporidium Not Detected (NotDetected); Cyclospora Cayetanesis Not Detected (NotDetected); Entamoeba histolytica Not Detected (NotDetected); Enteroaggregative E coli Not Detected (NotDetected); Enteropathogenic E coli Not Detected (NotDetected); Enterotoxigenic E coli Not Detected (NotDetected); Giardia lamblia Not Detected (NotDetected); Norovirus Not Detected (NotDetected); Plesimonas Shigalloides, PCR Not Detected (NotDetected); Rotavirus A Not Detected (NotDetected); Salmonella, PCR Not Detected (NotDetected); Sapovirus Not Detected (NotDetected); Shiga-like toxin E coli Not Detected (NotDetected); Shigella Enterovasive E coli Not Detected (NotDetected); Vibrio Cholerae Not Detected (NotDetected); Vibrio, PCR Not Detected (NotDetected); Yersinia Entercolitica, PCR Not Detected (NotDetected)
[2019-11-04 14:06] LABS: Occult Blood,Stool Negative (Negative)
[2019-11-08 11:29] LABS: Fats, Neutral Normal (.); Fats, Total Normal (.)
[2019-11-15 03:47] LABS: Lactoferrin, Fecal, Quant. 8.55 ug/mL(g) (0.00-7.24)
[2019-11-16 09:59] LABS: Pancreatic Elastase, Fecal 179 (>200)
== END ==
PROVIDERS: Visit Provider Internal Medicine Gastroenterology
DX: K76.9 Liver disease, unspecified (principal); K74.60 Unspecified cirrhosis of liver; R19.7 Diarrhea, unspecified; R19.5 Other fecal abnormalities; A04.72 Enterocolitis due to Clostridium difficile, not specified as recurrent
CPT/HCPCS: 82272; 82656; 82705; 83630; 87205; 87506; G0328

== ENCOUNTER → 2019-11-21 12:51 | Outpatient (CLI) | payer MEDICARE, SELFPAY ==
--- NOTE | 2019-11-21 13:05 | XR_ITS ---
PROCEDURE: XR HIP LT 2-3V W/PELVIS CLINICAL INDICATION: LT HIP PAIN COMPARISON: [id number] KNEE-3 VIEWS-LT from 03/16/2017 CXR2V XR chest 2V from 06/24/2017 FINDINGS: AP view of the pelvis shows mild osteoarthritic changes of the hips. No acute fracture or dislocation. Femoral necks having a somewhat elongated appearance on both sides which is greater on the left. In the superior aspect of the femoral neck there is some concavity which may indicate a CAM deformity and may be seen with femoral acetabular impingement. There are degenerative changes of the lumbar spine. IMPRESSION: Mild osteoarthritic changes of the hips with possible pistol contract graphic designer deformity of the left femoral neck which may be seen with femoral acetabular impingement CAM type. Please correlate with clinical findings Dictated by: Indio Marquez MD 11/21/2019 15:17 Electronically signed by Indio Marquez MD in [facility] 11/21/2019 15:17
== END ==
PROVIDERS: PCP Family Medicine; Visit Provider Family Medicine
DX: M25.552 Pain in left hip (principal)
CPT/HCPCS: 73502

== ENCOUNTER → 2019-12-22 09:56 | Outpatient (CLI) | payer MEDICARE, SELFPAY ==
[2019-12-22 13:24] LABS: Coronavirus 19 IgG Antibody Negative (Negative); Coronavirus 19 IgM Antibody Negative (Negative)
== END ==
PROVIDERS: Visit Provider Internal Medicine Gastroenterology
DX: Z01.818 Encounter for other preprocedural examination (principal)
CPT/HCPCS: 36415; 86328

== ENCOUNTER 2019-12-25 07:03 | Day surgery (SDC) | payer MEDICARE, SELFPAY ==
[2019-12-19 09:25] VITALS: BMI 27.5
[2019-12-25 07:29] VITALS: BP 150/71; PULSE 74; RESP 18; TEMP 36.8; O2SAT 97
[2019-12-25 07:43] LABS: POC Glucose,Bedside 124 (70-110)
--- NOTE | 2019-12-25 07:43 | HMH.ANESCL ---
[facility] Anesthesia Checklist - Patient Identification Patient Identification: Arm Band - Structural Data Admitted From: Home Planned Operative Procedure/s: colonoscopy Consent for Planned Operative Procedure(s) Verified: Yes Verified Documents: Surgical Consent, History and Physical - NPO Status Verified Time NPO: 00:00 - Additional verifications Anesthesia Reactions: No - Airway Assessment C-Spine Mobility Assessed: Yes (mp2) TMJ Mobility Assessed: Yes Dentition: Edentulous - Neurological Assessment Level of Consciousness: Awake, Alert - Anesthesia Plan Anesthesia Risk discussed: Yes Anesthesia Plan: Verified ASA Class: III Anesthesia Type: MAC [facility] History I have reviewed the patient's past medical history: Yes Medical History: Reports:: BPH, Diabetes Mellitus Type 2, Hyperlipidemia, Hypertension Denies:: Cancer, Diabetes Mellitus Type 1, Internal Pacemaker, MRSA, Seizures *Have you ever received a pneumonia vaccine?: No *Have you received a flu vaccine this season?: No Other Medical History: Reports: Arthritis, Liver Disease (cirrhosis), Other Anesthesia experience/problems:: nac Laterality Cases: Bilateral: Myringotomy (Ear Tubes) Other Surgeries: Yes: Cholecystectomy, Colonoscopy, Hernia Repair, Other. No: Pacemaker Amputation: No Fractures: No - *Social History Smoking Status: Former smoker Tobacco Type: cigarettes # Packs/Day (cigarettes): 1 Alcohol Intake: never Substance Use Type: denies use *Occupational Status:: retired Housing: house Household Members: spouse *Travel in the last 8 weeks: None Family Hx:: Coronary Artery Disease
[2019-12-25 08:01] VITALS: O2SAT 97
--- NOTE | 2019-12-25 08:04 | HMH.PROC ---
[facility] Procedure Note Procedure Note:: Colonoscopy Procedure Report: Colonoscopy with cold biopsies Endoscopist: Mukul Alvarez II, MD Referring physician: Adam Schumacher MD Date of Procedure: December 25, 2019 Equipment: Olympus 180 variable stiffness pediatric colonoscope Sedation: MAC sedation Indication: Mr. George is an 79-year-old gentleman with Leal and cirrhosis. He also has had bleeding esophageal varices and gastric fundic varices identified by upper endoscopy in February 2019. His colonoscopy at that time was unprepped. He does have a history of C. difficile colitis. He has struggled with bowel control and develops intermittent bowel urgency, diarrhea and fecal incontinence. He has taken Imodium. His more recent lab work from November 04, 2019 was stool studies did show a slightly elevated fecal lactoferrin (8.55) and slightly declined pancreatic fecal elastase (179). His PCR gastrointestinal panel was negative for C. difficile. He was Hemoccult negative and his fecal leukocytes were negative. He does report some lower abdominal discomfort. Colonoscopy is performed for diagnostic purposes. He did have a CAT scan of the abdomen on February 22, 2019 showing cirrhosis and prior cholecystectomy. He also has splenomegaly. There were varices in the celiac region. There was colonic diverticulosis but no diverticulitis. There was also evidence of fecal retention/fecal stasis. Procedure: Prior to the procedure, a history and physical exam was performed, and patient's medications and allergies were reviewed. The risks, benefits and alternatives of the sedation and procedure were discussed with the patient. All questions were answered and informed consent was obtained. The patient was brought to the procedure room. Patient identification and proposed procedure were verified by the physician and the nurse. The patient was placed in a left lateral decubitus position and the scope was passed under direct vision. Throughout the procedure, the patient's blood pressure, pulse, and oxygen saturations were monitored continuously. The colonoscopy was accomplished without difficulty. The patient tolerated the procedure well. Findings: On digital rectal examination there was normal rectal tone. There were no external hemorrhoids. The colonoscope was introduced through the anal canal to the rectum and advanced to the cecum. The ileocecal valve and appendiceal orifice were identified. The scope was advanced a short distance into the ileum which appeared grossly normal. The scope was then withdrawn into the colon. There were a few scattered angiodysplasia/AVMs of the right colon. The cecum, ascending and transverse colon were otherwise normal. Cold biopsies were taken x4 of the right colon to rule out microscopic colitis. 1 of the biopsy site had some oozing so a single Endo Clip was placed over the site with excellent hemostasis. There were scattered diverticuli throughout the descending and sigmoid colon (LEFT colon). Within the rectum there was a single diminutive polyp removed via cold biopsy. Upon retroflexion within the rectum there were grade 1-2 internal hemorrhoids. The preparation was excellent throughout with [place] Preparation Score of 9. The cecal time was 12 minutes. Impression: 1. Diminutive rectal polyp 2. Nonbleeding colonic angiodysplasias (right colon) 3. Left-sided diverticulosis 4. Grade 1-2 internal hemorrhoids Plan: I will follow-up the biopsies. The lower pancreatic fecal elastase suggests moderate pancreatic exocrine insufficiency. The slightly elevated lactoferrin may represent some microscopic colitis. I will place him on Creon and if his biopsies are positive for microscopic/collagenous colitis, I would recommend budesonide (Entocort). Additionally, I do feel that his urgency and diarrhea is multifactorial. He may have some cholerrheic diarrhea (from gallbladder). I also feel that he may have pelvic floor and s
[2019-12-25 08:30] VITALS: BP 92/56; PULSE 70; RESP 16; TEMP 36.2; O2SAT 94
[2019-12-25 08:41] VITALS: BP 115/69; PULSE 68; RESP 16; O2SAT 93
[2019-12-25 08:51] VITALS: BP 122/86; PULSE 71; RESP 16; O2SAT 95
[2019-12-25 09:01] VITALS: BP 127/75; PULSE 65; RESP 16; TEMP 36.2; O2SAT 96
== END 2019-12-25 09:14 | disposition home or self-care (01) ==
PROVIDERS: PCP Family Medicine; Visit Provider Internal Medicine Gastroenterology
PROC: 0DJD8ZZ Inspection of Lower Intestinal Tract, Via Natural or Artificial Opening Endoscopic (ICD-10-PCS; CPT 45378; principal; 2019-12-25 08:00)
DX: K62.1 Rectal polyp (principal); K55.20 Angiodysplasia of colon without hemorrhage; K57.30 Diverticulosis of large intestine without perforation or abscess without bleeding; K64.0 First degree hemorrhoids; Z87.19 Personal history of other diseases of the digestive system; K75.81 Nonalcoholic steatohepatitis (NASH); K74.60 Unspecified cirrhosis of liver; Z90.81 Acquired absence of spleen; E11.9 Type 2 diabetes mellitus without complications; I10 Essential (primary) hypertension; E78.5 Hyperlipidemia, unspecified; M19.90 Unspecified osteoarthritis, unspecified site
CPT/HCPCS: 45380; 82962; 88305

== ENCOUNTER → 2020-02-19 08:53 | Outpatient (POV) | payer MEDICARE, SELFPAY ==
[2020-02-19 11:30] LABS: Basophils # 0.1 K/mm3 (0-0.2); Basophils % 0.6 % (0.1-2.0); Eosinophils # 0.1 K/mm3 (0.0-0.4); Eosinophils % 1.4 % (0.1-12.0); Hematocrit 37.5 % (42.0-52.0); Hemoglobin 12.7 g/dL (14.1-18.0); Lymphocytes # 1.1 K/mm3 (0.7-4.5); Lymphocytes % 15.7 % (10-50); Mean Corpuscular HGB Conc 33.8 g/dL (31.8-35.4); Mean Corpuscular Hemoglobin 31.5 pg (27.0-31.2); Mean Corpuscular Volume 93.2 fl (80-94); Mean Platelet Volume 8.4 fl (7.4-10.4); Monocytes # 0.4 K/mm3 (0.1-1.0); Monocytes % 4.8 % (1.7-9.3); Neutrophils # 5.6 K/mm3 (1.8-7.8); Neutrophils % 77.5 % (37.0-80.0); Platelet Count 110 K/mm3 (142-424); Red Blood Count 4.02 M/mm3 (4.60-6.20); Red Cell Distribution Width 14.3 % (11.5-17.5); White Blood Count 7.3 K/mm3 (4.8-10.8)
[2020-02-19 11:41] LABS: Ammonia 31 umol/L (9-30)
[2020-02-19 12:22] LABS: Chloride 101 mmol/L (98-107); Sodium 137 mmol/L (136-145)
[2020-02-19 12:23] LABS: Potassium 4.4 mmoL/L (3.5-5.1)
[2020-02-19 12:25] LABS: Alanine Aminotransferase 48 U/L (12-78); Albumin Level 3.7 g/dl (3.5-5.0); Albumin/Globulin Ratio 1.2 (1.1-1.8); Alkaline Phosphatase 68 U/L (38-126); Anion Gap 13.4 mEq/L (5-15); Aspartate Amino Transferase 45 U/L (17-59); Bilirubin,Total 0.8 mg/dl (0.2-1.3); Blood Urea Nitrogen 21 mg/dl (9-20); Calcium 10.4 mg/dl (8.4-10.2); Carbon Dioxide 27 mmol/L (22.0-30.0); Estimated Glomerular Filt Rate 81 ml/min (>60); GFR (African American) 98 ML/MIN (>60); Glucose 329 mg/dl (74-100); Iron 60 ug/dL (49-181); Total Protein,Serum 6.7 g/dl (6.3-8.2)
[2020-02-19 12:42] LABS: Total Iron Binding Capacity 272 ug/dL (261-462)
[2020-02-19 13:03] LABS: Ferritin 140 ng/ml (17.9-464)
[2020-02-19 13:33] LABS: INR 1.06 (0.9-1.1); Prothrombin Time 10.9 seconds (9.4-11.8)
== END ==
PROVIDERS: Visit Provider Nurse Practitioner Family
DX: K74.60 Unspecified cirrhosis of liver (principal); R19.7 Diarrhea, unspecified; K76.9 Liver disease, unspecified; K76.6 Portal hypertension; K52.89 Other specified noninfective gastroenteritis and colitis
CPT/HCPCS: 36415; 80053; 82105; 82140; 82728; 83540; 83550; 85025; 85610

== ENCOUNTER → 2020-02-22 08:11 | Outpatient (CLI) | payer MEDICARE, SELFPAY ==
--- NOTE | 2020-02-22 08:15 | US_ITS ---
PROCEDURE: US ABDOMEN LIMITED CLINICAL INDICATION: CIRRHOSIS,DIARRHEA,FATTY LIVER DISEASE,HTN,COLITIS COMPARISON: US US ABDOMEN LIMITED from 09/08/2019 FINDINGS: PANCREAS: Unremarkable. No obvious mass or abnormal fluid collection. No ductal dilatation LIVER: There is coarse echogenic appearance of the liver. The portal vein is dilated at 17 mm. There is appropriate direction of blood flow within the portal vein. No intrahepatic or extrahepatic ductal dilatation. RIGHT KIDNEY: No hydro nephrosis. There is a 2 cm cyst in the upper pole GALLBLADDER: Prior cholecystectomy. IMPRESSION: Cirrhotic appearing liver with dilated portal vein consistent with portal hypertension with appropriate direction of blood flow within the portal vein. Dictated by: Indio Marquez MD 02/22/2020 17:13 Indio Marquez MD in [place] 02/22/2020 17:13
== END ==
PROVIDERS: PCP Family Medicine; Visit Provider Nurse Practitioner Family
DX: K74.60 Unspecified cirrhosis of liver (principal); R19.7 Diarrhea, unspecified; K71.8 Toxic liver disease with other disorders of liver; K76.9 Liver disease, unspecified; K76.6 Portal hypertension; K52.89 Other specified noninfective gastroenteritis and colitis; K86.1 Other chronic pancreatitis
CPT/HCPCS: 76705

== ENCOUNTER → 2020-04-22 09:07 | Outpatient (POV) | payer MEDICARE, SELFPAY ==
[2020-04-22 11:01] LABS: Ammonia 24 umol/L (9-30)
[2020-04-22 11:20] LABS: Alanine Aminotransferase 19 U/L (12-78); Albumin Level 3.9 g/dl (3.5-5.0); Albumin/Globulin Ratio 1.3 (1.1-1.8); Alkaline Phosphatase 83 U/L (38-126); Anion Gap 10.1 mEq/L (5-15); Aspartate Amino Transferase 42 U/L (17-59); Bilirubin,Total 0.7 mg/dl (0.2-1.3); Blood Urea Nitrogen 14 mg/dl (9-20); Calcium 10.1 mg/dl (8.4-10.2); Carbon Dioxide 28 mmol/L (22.0-30.0); Chloride 109 mmol/L (98-107); Estimated Glomerular Filt Rate 72 ml/min (>60); GFR (African American) 87 ML/MIN (>60); Globulin 3.1 g/dL (1.3-3.2); Glucose 177 mg/dl (74-100); Potassium 5.1 mmoL/L (3.5-5.1); Sodium 142 mmol/L (136-145)
== END ==
PROVIDERS: Visit Provider Nurse Practitioner Family
DX: E11.9 Type 2 diabetes mellitus without complications (principal); I10 Essential (primary) hypertension; E78.5 Hyperlipidemia, unspecified; Z79.4 Long term (current) use of insulin
CPT/HCPCS: 36415; 80053; 82140

== ENCOUNTER → 2020-07-22 10:51 | Outpatient (POV) | payer MEDICARE, SELFPAY | PROVIDERS: Visit Provider Nurse Practitioner Family | DX: Z00.00 Encounter for general adult medical examination without abnormal findings (principal) ==

== ENCOUNTER → 2020-07-25 09:36 | Outpatient (CLI) | payer MEDICARE, SELFPAY ==
[2020-07-25 10:14] LABS: Basophils # 0.1 K/mm3 (0-0.2); Basophils % 1.1 % (0.1-2.0); Eosinophils # 0.2 K/mm3 (0.0-0.4); Eosinophils % 3.6 % (0.1-12.0); Hematocrit 36.4 % (42.0-52.0); Lymphocytes # 1.7 K/mm3 (0.7-4.5); Lymphocytes % 34.7 % (10-50); Mean Corpuscular HGB Conc 32.9 g/dL (31.8-35.4); Mean Corpuscular Hemoglobin 29.2 pg (27.0-31.2); Mean Corpuscular Volume 88.8 fl (80-94); Mean Platelet Volume 7.9 fl (7.4-10.4); Monocytes # 0.4 K/mm3 (0.1-1.0); Monocytes % 8.1 % (1.7-9.3); Neutrophils # 2.6 K/mm3 (1.8-7.8); Neutrophils % 52.6 % (37.0-80.0); Platelet Count 108 K/mm3 (142-424); Red Blood Count 4.09 M/mm3 (4.60-6.20); Red Cell Distribution Width 14.2 % (11.5-17.5); White Blood Count 4.9 K/mm3 (4.8-10.8)
[2020-07-25 10:21] LABS: Ammonia 25 umol/L (9-30)
[2020-07-25 10:46] LABS: Chloride 110 mmol/L (98-107); Potassium 4.1 mmoL/L (3.5-5.1); Sodium 143 mmol/L (136-145)
[2020-07-25 10:49] LABS: Alanine Aminotransferase 23 U/L (12-78); Albumin Level 4.1 g/dl (3.5-5.0); Albumin/Globulin Ratio 1.3 (1.1-1.8); Alkaline Phosphatase 70 U/L (38-126); Anion Gap 9.1 mEq/L (5-15); Aspartate Amino Transferase 46 U/L (17-59); Bilirubin,Total 1.2 mg/dl (0.2-1.3); Blood Urea Nitrogen 18 mg/dl (9-20); Calcium 10.2 mg/dl (8.4-10.2); Carbon Dioxide 28 mmol/L (22.0-30.0); Estimated Glomerular Filt Rate 64 ml/min (>60); GFR (African American) 78 ML/MIN (>60); Globulin 3.2 g/dL (1.3-3.2); Glucose 117 mg/dl (74-100); Iron 136 ug/dL (49-181); Total Protein,Serum 7.3 g/dl (6.3-8.2)
[2020-07-25 10:59] LABS: Total Iron Binding Capacity 292 ug/dL (261-462)
[2020-07-25 11:24] LABS: Ferritin 86.8 ng/ml (17.9-464)
[2020-07-26 17:57] LABS: AFP, Tumor Marker 2.7 ng/mL (0.0-8.3)
== END ==
PROVIDERS: Visit Provider Nurse Practitioner Family
DX: K74.60 Unspecified cirrhosis of liver (principal); K86.81 Exocrine pancreatic insufficiency; K52.89 Other specified noninfective gastroenteritis and colitis; K76.9 Liver disease, unspecified
CPT/HCPCS: 36415; 80053; 82105; 82140; 82728; 83540; 83550; 85025

== ENCOUNTER → 2020-08-12 09:15 | Outpatient (CLI) | payer MEDICARE, SELFPAY ==
[2020-08-12 10:14] LABS: INR 1.07 (0.9-1.1); Prothrombin Time 11.8 seconds (9.4-11.8)
[2020-08-12 10:37] LABS: Coronavirus 19 IgG Antibody Negative (Negative); Coronavirus 19 IgM Antibody Negative (Negative)
== END ==
PROVIDERS: Ophthalmology; Visit Provider Nurse Practitioner Family
DX: Z01.812 Encounter for preprocedural laboratory examination (principal); Z20.822 Contact with and (suspected) exposure to COVID-19; H26.21 Cataract with neovascularization; Z51.81 Encounter for therapeutic drug level monitoring
CPT/HCPCS: 36415; 85610; 86328

== ENCOUNTER 2020-08-13 07:02 | Day surgery (SDC) | payer MEDICARE, SELFPAY ==
[2020-08-13] VITALS (8 sets, daily range): BP systolic 130–158; BP diastolic 66–92; PULSE 64–73; RESP 16–18; TEMP 36.2–36.4; O2SAT 97–100; BMI 25.9
[2020-08-13 08:24] LABS: POC Glucose,Bedside 142 (70-110)
== END 2020-08-13 09:26 | disposition home or self-care (01) ==
PROVIDERS: PCP Family Medicine; Visit Provider Ophthalmology
DX: H25.811 Combined forms of age-related cataract, right eye (principal); H57.03 Miosis; E11.3293 Type 2 diabetes mellitus with mild nonproliferative diabetic retinopathy without macular edema, bilateral; M19.90 Unspecified osteoarthritis, unspecified site; R03.0 Elevated blood-pressure reading, without diagnosis of hypertension; H91.90 Unspecified hearing loss, unspecified ear; G72.49 Other inflammatory and immune myopathies, not elsewhere classified; Z79.82 Long term (current) use of aspirin; Z79.84 Long term (current) use of oral hypoglycemic drugs; Z79.4 Long term (current) use of insulin; Z79.899 Other long term (current) drug therapy
CPT/HCPCS: 66982; 82962; V2632

== ENCOUNTER → 2021-01-06 09:01 | Outpatient (CLI) | payer MEDICARE, SELFPAY ==
[2021-01-06 09:34] LABS: Ammonia 28 umol/L (9-30)
[2021-01-06 09:45] LABS: Basophils # 0.1 K/mm3 (0-0.2); Basophils % 1.6 % (0.1-2.0); Eosinophils # 0.2 K/mm3 (0.0-0.4); Eosinophils % 3.7 % (0.1-12.0); Hematocrit 34.9 % (42.0-52.0); Lymphocytes # 1.7 K/mm3 (0.7-4.5); Lymphocytes % 33.3 % (10-50); Mean Corpuscular HGB Conc 34.4 g/dL (31.8-35.4); Mean Corpuscular Hemoglobin 29.8 pg (27.0-31.2); Mean Corpuscular Volume 86.7 fl (80-94); Mean Platelet Volume 8.3 fl (7.4-10.4); Monocytes # 0.3 K/mm3 (0.1-1.0); Monocytes % 6.5 % (1.7-9.3); Neutrophils # 2.8 K/mm3 (1.8-7.8); Neutrophils % 54.8 % (37.0-80.0); Platelet Count 95 K/mm3 (142-424); Red Blood Count 4.03 M/mm3 (4.60-6.20); Red Cell Distribution Width 13.8 % (11.5-17.5); White Blood Count 5.1 K/mm3 (4.8-10.8)
[2021-01-06 10:01] LABS: Prothrombin Time 11.9 seconds (10.1-12.5)
[2021-01-06 10:05] LABS: Albumin Level 3.8 g/dl (3.5-5.0); Anion Gap 7.9 mEq/L (5-15); Estimated Glomerular Filt Rate 72 ml/min (>60); GFR (African American) 87 ML/MIN (>60); Iron 111 ug/dL (49-181)
[2021-01-06 10:15] LABS: Total Iron Binding Capacity 267 ug/dL (261-462)
[2021-01-06 10:25] LABS: INR 1.01 (0.9-1.1)
[2021-01-06 10:35] LABS: Alanine Aminotransferase 23 U/L (12-78); Aspartate Amino Transferase 43 U/L (17-59); Bilirubin,Total 0.9 mg/dl (0.2-1.3); Blood Urea Nitrogen 21 mg/dl (9-20); Calcium 9.3 mg/dl (8.4-10.2); Carbon Dioxide 28 mmol/L (22.0-30.0); Chloride 113 mmol/L (98-107); Glucose 114 mg/dl (74-100); Potassium 4.9 mmoL/L (3.5-5.1); Sodium 144 mmol/L (136-145); Total Protein,Serum 6.7 g/dl (6.3-8.2)
[2021-01-06 10:36] LABS: Albumin/Globulin Ratio 1.3 (1.1-1.8); Alkaline Phosphatase 57 U/L (38-126); Globulin 2.9 g/dL (1.3-3.2)
[2021-01-06 10:41] LABS: Ferritin 89.3 ng/ml (17.9-464)
[2021-01-07 08:38] LABS: AFP, Tumor Marker 1.9 ng/mL (0.0-8.3)
== END ==
PROVIDERS: Visit Provider Nurse Practitioner Family
DX: R94.5 Abnormal results of liver function studies (principal); K74.60 Unspecified cirrhosis of liver; K76.9 Liver disease, unspecified; K86.81 Exocrine pancreatic insufficiency
CPT/HCPCS: 36415; 80053; 82105; 82140; 82728; 83540; 83550; 85025; 85610

== ENCOUNTER → 2021-01-07 10:18 | Outpatient (POV) | payer MEDICARE, SELFPAY | PROVIDERS: Visit Provider Dermatology | DX: Z00.00 Encounter for general adult medical examination without abnormal findings (principal) ==

== ENCOUNTER → 2021-01-13 07:40 | Outpatient (CLI) | payer MEDICARE, SELFPAY ==
--- NOTE | 2021-01-13 07:44 | US_ITS ---
PROCEDURE: US ABDOMEN LIMITED CLINICAL INDICATION: CIRRHOSIS COMPARISON: US US ABDOMEN LIMITED from 02/22/2020 FINDINGS: PANCREAS: Pancreas is not well delineated due to overlying bowel gas. CT or MRI without and with contrast with pancreatic protocol may provide further evaluation if clinically desired. LIVER: Coarse echotexture of the liver which appears somewhat shrunken. Appropriate direction of blood flow within the portal vein. The portal vein is upper normal at 14 mm. RIGHT KIDNEY: 2.4 cm right renal cyst. GALLBLADDER: Prior cholecystectomy IMPRESSION: Overall no change in cirrhotic appearance of the liver. There is appropriate direction of blood flow within a mildly prominent portal vein not significantly changed. Dictated by: Indio Marquez MD 01/13/2021 09:15 Indio Marquez MD in [place] 01/13/2021 09:15
== END ==
PROVIDERS: PCP Family Medicine; Visit Provider Nurse Practitioner Family
DX: K74.60 Unspecified cirrhosis of liver (principal); K86.81 Exocrine pancreatic insufficiency; K52.89 Other specified noninfective gastroenteritis and colitis; K76.9 Liver disease, unspecified; R15.2 Fecal urgency
CPT/HCPCS: 76705

== ENCOUNTER → 2021-01-20 09:17 | Outpatient (POV) | payer MEDICARE, SELFPAY | PROVIDERS: Visit Provider Nurse Practitioner Family | DX: Z00.00 Encounter for general adult medical examination without abnormal findings (principal) ==

== ENCOUNTER → 2021-02-11 08:25 | Outpatient (POV) | payer MEDICARE, SELFPAY | PROVIDERS: Visit Provider Dermatology | DX: Z00.00 Encounter for general adult medical examination without abnormal findings (principal) ==

== ENCOUNTER → 2021-02-25 08:31 | Outpatient (POV) | payer MEDICARE, SELFPAY | PROVIDERS: Visit Provider Dermatology | DX: Z00.00 Encounter for general adult medical examination without abnormal findings (principal) ==

== ENCOUNTER 2021-04-20 09:18 | Emergency (ER) | payer MEDICARE, SELFPAY ==
[2021-04-20 09:20] VITALS: BP 149/88; PULSE 76; RESP 19; TEMP 37; O2SAT 98; BMI 29.2
--- NOTE | 2021-04-20 10:03 | HMH.EDUTC ---
[facility] [place] Clinical Impression: Sinusitis Qualifiers: Sinusitis location: unspecified location Chronicity: unspecified Qualified Code(s): J32.9 - Chronic sinusitis, unspecified Disposition: Home, Self-Care Condition on Discharge: Good Instructions: Sinusitis, DI for Sinusitis, Azithromycin Additional Instructions: *Monitor Temp, Over the counter Motrin or Tylenol as directed/as needed Tylenol every 4 hours and Motrin every 6 hours (as long as your family doctor has told you that you can take it) for fever or pain. and straight to ER if unable to lower temp less than 101.0 after medication given *Warm salt water gargles may help to soothe the throat *Throat Lozenges *Warm fluids like tea with honey may help to soothe the throat *Sleep elevated *Humidifier/Vaporizer *Flonase 2 sprays in each nostril daily but be aware that it may take 2-3 days before you notice improvement Take medication as prescribed Follow up with Family Doctor if no improvement or any worsening of symptoms Follow up IMMEDIATELY for new or worsening symptoms or no Noticeable improvement over the next 48-72 hours. 911 for difficulty breathing or swallowing Prescriptions: Fluticasone Propionate [Flonase 50mcg nasal spray 16gm] 1 spr NS DAILY #1 each Transmission Status: Received by [facility] #[id number] Azithromycin [Z-Siva 250mg Tab] 250 mg PO DIRECTED #6 tab Transmission Status: Received by [facility] #[id number] Referrals: Jamir Schumacher MD [Primary Care Provider] - As needed Time of Disposition: 10:11 Medical Decision Making - Gómez Inquiry Pt receiving controlled substance: No Gómez was queried for this patient: No Vital Signs: 04/20/21 09:20 04/20/21 10:17 Temperature 98.6 F 98.6 F Temperature Source Oral Pulse Rate 76 Pulse Rate [Left Brachial] 76 Respiratory Rate 19 19 Blood Pressure 149/88 H Blood Pressure [Left Arm] 149/88 H Blood Pressure Mean [Left Arm] 108 Blood Pressure Source [Left Arm] Automatic Cuff Blood Pressure Position [Left Arm] Sitting 02 Sat by Pulse Oximetry 98 Oxygen Delivery Method Room Air [facility] [place] H[place] - General Stated complaint: sinus congestion Time Seen by Provider: 04/20/21 10:03 Mode of Arrival: Ambulatory Source of Information: Patient Limitations: No Limitations Description of Symptoms (Recalled from Triage Doc. by RN): PATIENT C/O SINUS CONGESTION AND PRESSURE X 1 WEEK HEENT Symptoms (Recalled from RN notes): Yes Resp Symptoms (Recalled from RN notes): No Skin Symptoms (Recalled from RN notes): No MS Symptoms (Recalled from RN notes): No Functional Status (Recalled from RN notes): WNL - History of Present Illness Provider Complaint: Patient states that he has been having sinus pain and pressure for over a week States that he has got some medication over the counter but was afraid to take it due to having to give his license for him to get it and he was afraid it was a narcotic States that he wanted to come in and get a zpack that usually helps him when he gets this - Related Data Home Medications Medication Instructions Recorded Confirmed Aspirin [Aspirin 81mg EC Tab] 81 mg PO DAILY 06/23/17 02/20/21 Insulin Glargine,Hum.rec.anlog 22 units SQ BID 06/23/17 02/20/21 [Lantus Insulin 100units/mL 10mL vial] Meloxicam 15 mg PO DAILY 06/23/17 02/20/21 Metformin HCl [Glucophage 500mg 500 mg PO BID 06/23/17 02/20/21 Tablet] Gabapentin [Gabapentin 400mg Cap] 400 mg PO HS 02/23/19 02/20/21 ramipriL [Ramipril] 5 mg PO DAILY 02/23/19 02/20/21 omeprazole 40 mg capsule,delayed 40 mg PO DAILY 06/23/19 02/20/21 release Ofloxacin 5 drp OTIC Q12H 12/25/19 02/20/21 calcium polycarbophil 625 mg tablet 1,250 mg PO DAILY 01/15/20 02/20/21 appcwe-qycdfzzq-dlnurtz 1 cap PO TID cap 01/15/20 02/20/21 36,000-114,000-180,000 unit capsule,delay rel prednisone 20 mg tablet 20 mg PO BID 01/15/20 02/20/21 budesonide 3 mg 3 mg PO DAILY 01/29/20
[2021-04-20 10:17] VITALS: BP 149/88; PULSE 76; RESP 19; TEMP 37; O2SAT 98
== END 2021-04-20 10:19 | disposition home or self-care (01) ==
PROVIDERS: Emergency Provider Nurse Practitioner; PCP Family Medicine
DX: J32.9 Chronic sinusitis, unspecified (principal); E11.9 Type 2 diabetes mellitus without complications; E78.5 Hyperlipidemia, unspecified; I10 Essential (primary) hypertension; Z87.891 Personal history of nicotine dependence; Z79.899 Other long term (current) drug therapy
CPT/HCPCS: G0463; 99202

== ENCOUNTER → 2021-05-09 15:30 | Outpatient (CLI) | payer MEDICARE, SELFPAY ==
[2021-05-09 16:15] LABS: Basophils # 0.1 K/mm3 (0-0.2); Basophils % 1.4 % (0.1-2.0); Eosinophils # 0.2 K/mm3 (0.0-0.4); Eosinophils % 3.4 % (0.1-12.0); Hematocrit 37.6 % (42.0-52.0); Hemoglobin 12.8 g/dL (14.1-18.0); Lymphocytes % 32.7 % (10-50); Mean Corpuscular HGB Conc 34.2 g/dL (31.8-35.4); Mean Corpuscular Hemoglobin 30.9 pg (27.0-31.2); Mean Corpuscular Volume 90.2 fl (80-94); Mean Platelet Volume 8.8 fl (7.4-10.4); Monocytes # 0.3 K/mm3 (0.1-1.0); Monocytes % 5.1 % (1.7-9.3); Neutrophils # 3.5 K/mm3 (1.8-7.8); Neutrophils % 57.3 % (37.0-80.0); Platelet Count 121 K/mm3 (142-424); Red Blood Count 4.16 M/mm3 (4.60-6.20); Red Cell Distribution Width 14.1 % (11.5-17.5); White Blood Count 6.2 K/mm3 (4.8-10.8)
[2021-05-09 19:49] LABS: Alanine Aminotransferase 26 U/L (12-78); Albumin Level 4.4 g/dl (3.5-5.0); Albumin/Globulin Ratio 1.5 (1.1-1.8); Alkaline Phosphatase 74 U/L (38-126); Anion Gap 13.5 mEq/L (5-15); Aspartate Amino Transferase 44 U/L (17-59); Bilirubin,Total 0.7 mg/dl (0.2-1.3); Blood Urea Nitrogen 30 mg/dl (9-20); Calcium 10.3 mg/dl (8.4-10.2); Carbon Dioxide 25 mmol/L (22.0-30.0); Chloride 115 mmol/L (98-107); Chol/HDL Ratio 3.7 (1-3.5); Cholesterol 194 mg/dl (140-200); Estimated Glomerular Filt Rate 58 ml/min (>60); GFR (African American) 70 ML/MIN (>60); Glucose 189 mg/dl (74-100); HDL Cholesterol 52 mg/dl (40-60); Potassium 5.5 mmoL/L (3.5-5.1); Sodium 148 mmol/L (136-145); Total Protein,Serum 7.4 g/dl (6.3-8.2); Triglycerides 168 mg/dl (30-150); VLDL Cholesterol 34 mg/dL (0-40)
[2021-05-09 19:59] LABS: Direct LDL Cholesterol 105.62 mg/dL (100-129)
[2021-05-09 20:20] LABS: Hemoglobin A1C 7.8 % (4.0-6.0)
== END ==
PROVIDERS: Visit Provider Family Medicine
DX: E11.42 Type 2 diabetes mellitus with diabetic polyneuropathy (principal); I10 Essential (primary) hypertension; E78.5 Hyperlipidemia, unspecified; Z79.4 Long term (current) use of insulin
CPT/HCPCS: 36415; 80053; 80061; 83036; 85025

== ENCOUNTER 2021-06-16 09:18 | Emergency (ER) | payer MEDICARE, SELFPAY ==
[2021-06-16 10:20] VITALS: BP 141/76; PULSE 66; RESP 18; TEMP 37; O2SAT 96; BMI 31.3
--- NOTE | 2021-06-16 10:42 | HMH.EDUTC ---
[facility] [place] Dis[place] Clinical Impression: Otitis media Qualifiers: Otitis media type: unspecified Laterality: left Qualified Code(s): H66.92 - Otitis media, unspecified, left ear Disposition: Home, Self-Care Condition on Discharge: Good Instructions: Middle Ear Infection, Amoxicillin Additional Instructions: Take medication as prescribed Follow up with your Family Doctor if no improvement or any worsening of symptoms Straight to ER if any life threatening symptoms Follow up with ENT if no improvement or any worsening of symptoms Prescriptions: Amoxicillin [Amoxicillin 500mg Cap] 500 mg PO TID #30 cap Transmission Status: Pending to [facility] #[id number] Referrals: Jamir Schumacher MD [Primary Care Provider] - As needed Time of Disposition: 10:51 Medical Decision Making - Gómez Inquiry Pt receiving controlled substance: No Gómez was queried for this patient: No Vital Signs: 06/16/21 10:20 Temperature 98.6 F Temperature Source Oral Pulse Rate [Right Brachial] 66 Respiratory Rate 18 Blood Pressure [Right Arm] 141/76 H Blood Pressure Mean [Right Arm] 97 Blood Pressure Source [Right Arm] Automatic Cuff Blood Pressure Position [Right Arm] Sitting 02 Sat by Pulse Oximetry 96 Oxygen Delivery Method Room Air [facility] [place] HPI - General Stated complaint: lt ear pain Time Seen by Provider: 06/16/21 10:42 Mode of Arrival: Ambulatory Source of Information: Patient Limitations: No Limitations Description of Symptoms (Recalled from Triage Doc. by RN): PATIENT C/O LEFT EAR PAIN X 6 DAYS HEENT Symptoms (Recalled from RN notes): Yes Resp Symptoms (Recalled from RN notes): No Skin Symptoms (Recalled from RN notes): No MS Symptoms (Recalled from RN notes): No Functional Status (Recalled from RN notes): WNL - History of Present Illness Provider Complaint: Patient states that he has been having pain in his left ear for about a week States that he gets ear infections from wearing hearing aids at times States that today he was still having pain in his left ear and felt like his lymph nodes was swollen so he came in - Related Data Home Medications Medication Instructions Recorded Confirmed Aspirin [Aspirin 81mg EC Tab] 81 mg PO DAILY 06/23/17 06/04/21 Insulin Glargine,Hum.rec.anlog 22 units SQ BID 06/23/17 06/04/21 [Lantus Insulin 100units/mL 10mL vial] Meloxicam 15 mg PO DAILY 06/23/17 06/04/21 Metformin HCl [Glucophage 500mg 500 mg PO BID 06/23/17 06/04/21 Tablet] Gabapentin [Gabapentin 400mg Cap] 400 mg PO HS 02/23/19 06/04/21 ramipriL [Ramipril] 5 mg PO DAILY 02/23/19 06/04/21 omeprazole 40 mg capsule,delayed 40 mg PO DAILY 06/23/19 06/04/21 release calcium polycarbophil 625 mg tablet 1,250 mg PO DAILY 01/15/20 06/04/21 qtgphc-pmdspxsh-ftezrjb 1 cap PO TID cap 01/15/20 06/04/21 36,000-114,000-180,000 unit capsule,delay rel budesonide 3 mg 3 mg PO DAILY 01/29/20 06/04/21 capsule,delayed,extended release pravastatin 80 mg tablet 80 mg PO DAILY tab 01/29/20 06/04/21 prednisone 10 mg tablet 10 mg PO DAILY tab 01/29/20 06/04/21 colestipol 5 gram oral granules 5 g PO DAILY 03/07/20 06/04/21 Previous Rx's Medication Instructions Recorded Fluticasone Propionate [Flonase 1 spr NS DAILY #1 each 04/20/21 50mcg nasal spray 16gm] Amoxicillin [Amoxicillin 500mg 500 mg PO TID #30 cap 06/16/21 Cap] Allergies Allergy/AdvReac Type Severity Reaction Status Date / Time No Known Allergies Allergy Verified 06/04/21 09:10 - Worker's Comp Is this a Worker's Comp case?: No [facility] History - Hepatitis A Screen Drug use history?: No High risk sexual behaviors?: No History of sexually transmitted infection?: No Currently employed?: No Childcare worker?: No Do you have indoor plumbing?: Yes Do you have electricity?: Yes Attestation statement:: This patient has been screened for Hepatitis A risk factors. I have reviewed the patient's past medical history: Jayson
[2021-06-16 10:57] VITALS: BP 141/76; PULSE 66; RESP 18; TEMP 37; O2SAT 96
== END 2021-06-16 11:03 | disposition home or self-care (01) ==
PROVIDERS: Emergency Provider Nurse Practitioner; PCP Family Medicine
DX: H66.92 Otitis media, unspecified, left ear (principal); E11.9 Type 2 diabetes mellitus without complications; E78.5 Hyperlipidemia, unspecified; I10 Essential (primary) hypertension; Z87.891 Personal history of nicotine dependence
CPT/HCPCS: G0463; 99202

== ENCOUNTER → 2021-07-04 07:41 | Outpatient (CLI) | payer MEDICARE, SELFPAY ==
--- NOTE | 2021-07-04 07:45 | US_ITS ---
FINAL REPORT CLINICAL HISTORY: follow up cirrhosis FINDINGS: Sonographic images of the right upper quadrant were obtained. The pancreas is partially obscured. There is a coarsening of hepatic echotexture consistent with history of cirrhosis. The gallbladder is not visualized and may be surgically absent. Common duct is normal at 4 mm. There is a 1.8 cm right renal cyst. There is normal directional flow in the portal vein which is patent. IMPRESSION: Coarsened hepatic echotexture consistent with cirrhosis. 1.8 cm right renal cyst. Normal common duct. Reviewed, Interpreted and Dictated by Abhay Araujo III, MD Transcribed by Alannah Tello Authenticated by Abhay Araujo III, MD on 07/04/2021 09:19:50 AM [facility]
[2021-07-04 09:05] LABS: Basophils # 0.1 K/mm3 (0-0.2); Basophils % 1.9 % (0.1-2.0); Eosinophils # 0.2 K/mm3 (0.0-0.4); Eosinophils % 3.5 % (0.1-12.0); Hematocrit 36.4 % (42.0-52.0); Hemoglobin 12.1 g/dL (14.1-18.0); Lymphocytes # 1.5 K/mm3 (0.7-4.5); Lymphocytes % 31.2 % (10-50); Mean Corpuscular HGB Conc 33.3 g/dL (31.8-35.4); Mean Corpuscular Hemoglobin 30.3 pg (27.0-31.2); Mean Corpuscular Volume 91.3 fl (80-94); Mean Platelet Volume 9.1 fl (7.4-10.4); Monocytes # 0.4 K/mm3 (0.1-1.0); Monocytes % 7.8 % (1.7-9.3); Neutrophils # 2.7 K/mm3 (1.8-7.8); Neutrophils % 55.5 % (37.0-80.0); Platelet Count 114 K/mm3 (142-424); Red Blood Count 3.99 M/mm3 (4.60-6.20); Red Cell Distribution Width 14.2 % (11.5-17.5); White Blood Count 4.9 K/mm3 (4.8-10.8)
[2021-07-04 09:16] LABS: INR 1.09 (0.9-1.1); Prothrombin Time 12.2 seconds (10.1-12.5)
[2021-07-04 09:22] LABS: Ammonia < 9 umol/L (9-30)
[2021-07-04 12:02] LABS: Alanine Aminotransferase 23 U/L (12-78); Albumin Level 3.6 g/dl (3.5-5.0); Albumin/Globulin Ratio 1.4 (1.1-1.8); Alkaline Phosphatase 61 U/L (38-126); Anion Gap 8.9 mEq/L (5-15); Aspartate Amino Transferase 45 U/L (17-59); Bilirubin,Total 1.3 mg/dl (0.2-1.3); Blood Urea Nitrogen 21 mg/dl (9-20); Calcium 9.3 mg/dl (8.4-10.2); Carbon Dioxide 29 mmol/L (22.0-30.0); Chloride 105 mmol/L (98-107); Estimated Glomerular Filt Rate 72 ml/min (>60); GFR (African American) 87 ML/MIN (>60); Globulin 2.6 g/dL (1.3-3.2); Glucose 149 mg/dl (74-100); Potassium 4.9 mmoL/L (3.5-5.1); Sodium 138 mmol/L (136-145); Total Protein,Serum 6.2 g/dl (6.3-8.2)
[2021-07-04 13:23] LABS: Iron 106 ug/dL (49-181)
[2021-07-04 13:32] LABS: Total Iron Binding Capacity 268 ug/dL (261-462)
[2021-07-04 13:59] LABS: Ferritin 82.8 ng/ml (17.9-464)
[2021-07-05 10:12] LABS: AFP, Tumor Marker 2.3 ng/mL (0.0-8.3)
== END ==
PROVIDERS: PCP Family Medicine; Visit Provider Nurse Practitioner Family
DX: K74.60 Unspecified cirrhosis of liver (principal); K76.9 Liver disease, unspecified; K52.89 Other specified noninfective gastroenteritis and colitis; A04.72 Enterocolitis due to Clostridium difficile, not specified as recurrent
CPT/HCPCS: 36415; 76705; 80053; 82105; 82140; 82728; 83540; 83550; 85025; 85610

== ENCOUNTER → 2021-08-11 11:22 | Outpatient (CLI) | payer MEDICARE, SELFPAY ==
--- NOTE | 2021-08-11 11:45 | XR_ITS ---
FINAL REPORT TECHNIQUE: Single view chest CLINICAL HISTORY: COVID OUTPATIENT FINDINGS: A single view of the chest was obtained. The heart and mediastinum are within normal limits. The lungs are clear. There is no pneumothorax. Osseous structures are unremarkable. IMPRESSION: No acute cardiopulmonary process. Reviewed, Interpreted and Dictated by Akhil Salazar MD Transcribed by Alannah Tello Authenticated by Akhil Salazar MD on 08/11/2021 04:58:53 PM [facility]
== END ==
PROVIDERS: PCP Family Medicine; Visit Provider Family Medicine
DX: Z20.822 Contact with and (suspected) exposure to COVID-19 (principal)
CPT/HCPCS: 71045; C9803; U0003; U0005

== ENCOUNTER → 2021-10-27 13:58 | Outpatient (CLI) | payer MEDICARE, SELFPAY ==
--- NOTE | 2021-10-27 14:04 | XR_ITS ---
FINAL REPORT CLINICAL HISTORY: knee pain-right hip pain -- dwain knee and hip pain FINDINGS: 4 weight-bearing views of the right knee were obtained. There is no acute fracture or dislocation. There is severe medial compartment degenerative change with severe medial compartment narrowing. There is mild lateral compartment degenerative change. There is a small joint effusion. IMPRESSION: Mild and severe degenerative changes with a small joint effusion. Reviewed, Interpreted and Dictated by Abhay Araujo III, MD Transcribed by Des Vilchis Authenticated by Abhay Araujo III, MD on 10/27/2021 03:44:25 PM [facility]
--- NOTE | 2021-10-27 14:04 | XR_ITS ---
FINAL REPORT CLINICAL HISTORY: hip pain-right hip pain -- dwain knee and hip pain FINDINGS: 3 views of the left hip with pelvis were obtained. There is no acute fracture or dislocation. There is abnormal morphology of the left femoral head and neck which may represent sequela of prior fracture. The joint spaces demonstrate moderate degenerative change. There are no soft tissue abnormalities. IMPRESSION: Moderate degenerative change. Reviewed, Interpreted and Dictated by Abhay Araujo III, MD Transcribed by Des Vilchis Authenticated by Abhay Araujo III, MD on 10/27/2021 04:37:21 PM [facility]
--- NOTE | 2021-10-27 14:04 | XR_ITS ---
FINAL REPORT CLINICAL HISTORY: knee pain-right hip pain -- dwain knee and hip pain FINDINGS: 4 weight-bearing views of the left knee were obtained. There is no acute fracture or dislocation. There is severe medial compartment degenerative change with severe medial compartment narrowing. There is a small joint effusion. IMPRESSION: Severe degenerative change of the medial compartment. Reviewed, Interpreted and Dictated by Abhay Araujo III, MD Transcribed by Des Vilchis Authenticated by Abhay Araujo III, MD on 10/27/2021 03:44:20 PM [facility]
--- NOTE | 2021-10-27 14:04 | XR_ITS ---
FINAL REPORT CLINICAL HISTORY: hip pain-right hip pain -- dwain knee and hip pain FINDINGS: 3 views of the right hip with pelvis were obtained. There is no acute fracture or dislocation. The joint spaces demonstrate mild degenerative change. There are no soft tissue abnormalities. IMPRESSION: Mild degenerative change. Reviewed, Interpreted and Dictated by Abhay Araujo III, MD Transcribed by Des Vilchis Authenticated by Abhay Araujo III, MD on 10/27/2021 03:44:[address] [facility]
== END ==
PROVIDERS: PCP Family Medicine; Visit Provider Orthopaedic Surgery
DX: M25.561 Pain in right knee (principal); M25.562 Pain in left knee; M25.551 Pain in right hip; M25.552 Pain in left hip
CPT/HCPCS: 73502; 73564

== ENCOUNTER → 2021-11-05 16:12 | Outpatient (CLI) | payer MEDICARE, SELFPAY ==
[2021-11-05 17:12] LABS: Potassium 5.6 mmoL/L (3.5-5.1)
== END ==
PROVIDERS: PCP Family Medicine; Visit Provider Family Medicine
DX: E87.6 Hypokalemia (principal)
CPT/HCPCS: 36415; 84132

== ENCOUNTER → 2022-01-17 10:31 | Outpatient (CLI) | payer MEDICARE, SELFPAY | PROVIDERS: PCP Family Medicine; Visit Provider Family Medicine | DX: U07.1 COVID-19 (principal) | CPT/HCPCS: C9803; U0003; U0005 ==

== ENCOUNTER 2022-01-27 14:22 | Emergency (ER) | payer MEDICARE, SELFPAY ==
--- NOTE | 2022-01-27 14:27 | XR_ITS ---
FINAL REPORT CLINICAL HISTORY: sob/cough COMPARISON: 08/11/2021 FINDINGS: Two views of the chest were obtained. The heart size and pulmonary vascularity are within normal limits. The mediastinum is normal. No acute pulmonary abnormality is identified. There is no pneumothorax. The bony thorax is intact. IMPRESSION: No active cardiopulmonary disease. Reviewed, Interpreted and Dictated by Abhay Araujo III, MD Transcribed by Des Vilchis Authenticated and [facility]
--- NOTE | 2022-01-27 14:31 | HMH.EDUTC ---
[facility] [place] [facility] [place] Clinical Impression: Acute bronchitis Qualifiers: Bronchitis organism: unspecified organism Qualified Code(s): J20.9 - Acute bronchitis, unspecified Disposition: Home, Self-Care Condition on Discharge: Good Instructions: Acute Bronchitis, DI for Acute Bronchitis Additional Instructions: Drink plenty of fluids. Take tylenol or ibuprofen for pain or fever. Take the medications as directed. Follow up with your regular doctor. GO TO THE ER FOR ANY WORSENING SYMPTOMS Prescriptions: Benzonatate [Benzonatate 100mg cap] 100 mg PO TIDP PRN #30 cap PRN Reason: Cough Transmission Status: Received by [facility] # predniSONE [Prednisone 20mg Tab] 20 mg PO BID 3 Days #6 tab Transmission Status: Received by [facility] # Azithromycin [Z-Siva 250mg Tab*] 250 mg PO UD DOSE PK #6 tab Transmission Status: Received by [facility] # Referrals: Jamir Schumacher MD [Primary Care Provider] - Time of Disposition: 15:36 Medical Decision Making - Medical Records Medical records reviewed: No: I reviewed the patient's medical records. - Gómez Inquiry Pt receiving controlled substance: No Vital Signs: 01/27/22 14:44 01/27/22 15:38 Temperature 98.3 F 98.3 F Temperature Source Oral Pulse Rate 66 Pulse Rate [Left] 66 Respiratory Rate 15 15 Blood Pressure 172/89 H Blood Pressure [Right Arm] 172/89 H Blood Pressure Mean [Right Arm] 116 02 Sat by Pulse Oximetry 98 [facility] [place] [facility] [place] HPI - General Stated complaint: Cough, SOA Time Seen by Provider: 01/27/22 14:31 - History of Present Illness Provider Complaint: He states that he has had chest and sinus congestion for the past 3 days. - Related Data Home Medications Medication Instructions Recorded Confirmed Aspirin [Aspirin 81mg EC Tab] 81 mg PO DAILY 06/23/17 12/04/21 Insulin Glargine,Hum.rec.anlog 22 units SQ BID 06/23/17 12/04/21 [Lantus Insulin 100units/mL 10mL vial] Meloxicam 15 mg PO DAILY 06/23/17 12/04/21 Metformin HCl [Glucophage 500mg 500 mg PO BID 06/23/17 12/04/21 Tablet] Gabapentin [Gabapentin 400mg Cap] 400 mg PO HS 02/23/19 12/04/21 ramipriL [Ramipril] 5 mg PO DAILY 02/23/19 12/04/21 omeprazole 40 mg capsule,delayed 40 mg PO DAILY 06/23/19 12/04/21 release calcium polycarbophil 625 mg tablet 1,250 mg PO DAILY 01/15/20 12/04/21 [id number]-[id number] 1 cap PO TID cap 01/15/20 12/04/21 36,000-114,000-180,000 unit capsule,delay rel budesonide 3 mg 3 mg PO DAILY 01/29/20 12/04/21 capsule,delayed,extended release pravastatin 80 mg tablet 80 mg PO DAILY tab 01/29/20 12/04/21 prednisone 10 mg tablet 10 mg PO DAILY tab 01/29/20 12/04/21 colestipol 5 gram oral granules 5 g PO DAILY 03/07/20 12/04/21 Previous Rx's Medication Instructions Recorded Fluticasone Propionate [Flonase 1 spr NS DAILY #1 each 04/20/21 50mcg nasal spray 16gm] Azithromycin [Z-Siva 250mg Tab*] 250 mg PO UD DOSE PK #6 tab 01/27/22 Benzonatate [Benzonatate 100mg 100 mg PO TIDP PRN #30 cap 01/27/22 cap] predniSONE [Prednisone 20mg 20 mg PO BID 3 Days #6 tab 01/27/22 Tab] Allergies Allergy/AdvReac Type Severity Reaction Status Date / Time No Known Allergies Allergy Verified 12/04/21 09:57 [facility] History - Hepatitis A Screen Attestation statement:: This patient has been screened for Hepatitis A risk factors. I have reviewed the patient's past medical history: Yes Medical History: Reports:: BPH, Diabetes Mellitus Type 2, Hyperlipidemia, Hypertension Denies:: Cancer, Diabetes Mellitus Type 1, Internal Pacemaker, MRSA, Seizures Other Medical History: Reports: Arthritis, Liver Disease, Other Comment: BPH Laterality Cases: Bilateral: Myringotomy (Ear Tubes) Other Surgeries: Yes: Cholecystectomy, Colonoscopy, Hernia Repair, Skin Cancer Excision, Other. No: Pacemaker Amputation: No Fractures: No - Social History Smoking Status: Former sm
[2022-01-27 14:44] VITALS: BP 172/89; PULSE 66; RESP 15; TEMP 36.8; O2SAT 98; BMI 29.1
[2022-01-27 15:38] VITALS: BP 172/89; PULSE 66; RESP 15; TEMP 36.8
== END 2022-01-27 15:48 | disposition home or self-care (01) ==
PROVIDERS: Emergency Provider Nurse Practitioner Family; PCP Family Medicine
DX: J20.9 Acute bronchitis, unspecified (principal)
CPT/HCPCS: 71046; 99212; G0463

== ENCOUNTER → 2022-02-03 07:49 | Outpatient (CLI) | payer MEDICARE, SELFPAY ==
--- NOTE | 2022-02-03 07:56 | US_ITS ---
FINAL REPORT CLINICAL HISTORY: FATTY LIVER,CIRRHOSIS,COLITIS,DIARRHEA COMPARISON: 07/04/2021 FINDINGS: Sonographic images of the right upper quadrant were obtained. The pancreas is partially obscured. The liver is irregular with coarsened echogenicity consistent with history of cirrhosis. The portal vein is enlarged measuring 16 mm which likely represents portal hypertension. It has normal directional flow. The gallbladder is surgically absent. There is no evidence of biliary ductal dilatation.The common duct measures 5 mm. The right kidney measures 12.5 cm in length. There is a 1.8 cm right renal cyst. There is a small amount of ascites in the abdomen and pelvis. IMPRESSION: Liver is irregular with coarsened echogenicity consistent with history of cirrhosis. Enlarged portal vein likely representing portal hypertension. Cholecystectomy. Reviewed, Interpreted and Dictated by Abhay Araujo III, MD Transcribed by Jessie Montano Authenticated and [facility]
[2022-02-03 08:54] LABS: Basophils # 0.1 K/mm3 (0-0.2); Eosinophils # 0.3 K/mm3 (0.0-0.4); Eosinophils % 5.9 % (0.1-12.0); Hematocrit 35.6 % (42.0-52.0); Hemoglobin 11.3 g/dL (14.1-18.0); Lymphocytes # 1.2 K/mm3 (0.7-4.5); Lymphocytes % 23.8 % (10-50); Mean Corpuscular HGB Conc 31.7 g/dL (31.8-35.4); Mean Corpuscular Hemoglobin 30.8 pg (27.0-31.2); Mean Corpuscular Volume 97.2 fl (80-94); Mean Platelet Volume 8.6 fl (7.4-10.4); Monocytes # 0.3 K/mm3 (0.1-1.0); Monocytes % 6.2 % (1.7-9.3); Neutrophils # 3.2 K/mm3 (1.8-7.8); Neutrophils % 63.1 % (37.0-80.0); Platelet Count 95 K/mm3 (142-424); Red Blood Count 3.66 M/mm3 (4.60-6.20); Red Cell Distribution Width 14.1 % (11.5-17.5); White Blood Count 5.1 K/mm3 (4.8-10.8)
[2022-02-03 09:01] LABS: Ammonia 13 umol/L (9-30)
[2022-02-03 09:02] LABS: INR 1.02 (0.9-1.1); Prothrombin Time 11.5 seconds (10.1-12.5)
[2022-02-03 09:47] LABS: Chloride 108 mmol/L (98-107); Potassium 4.9 mmoL/L (3.5-5.1); Sodium 140 mmol/L (136-145)
[2022-02-03 09:49] LABS: Alanine Aminotransferase 31 U/L (12-78); Alkaline Phosphatase 74 U/L (38-126); Aspartate Amino Transferase 47 U/L (17-59); Bilirubin,Total 1.2 mg/dl (0.2-1.3); Blood Urea Nitrogen 26 mg/dl (9-20); Estimated Glomerular Filt Rate 64 ml/min (>60); GFR (African American) 77 ML/MIN (>60)
[2022-02-03 09:50] LABS: Albumin Level 3.4 g/dl (3.5-5.0); Albumin/Globulin Ratio 1.3 (1.1-1.8); Anion Gap 6.9 mEq/L (5-15); Calcium 10.3 mg/dl (8.4-10.2); Carbon Dioxide 30 mmol/L (22.0-30.0); Globulin 2.7 g/dL (1.3-3.2); Glucose 173 mg/dl (74-100); Iron 119 ug/dL (49-181); Total Protein,Serum 6.1 g/dl (6.3-8.2)
[2022-02-03 09:59] LABS: Total Iron Binding Capacity 227 ug/dL (261-462)
[2022-02-03 10:27] LABS: Ferritin 204 ng/ml (17.9-464)
[2022-02-04 14:25] LABS: AFP, Tumor Marker 2.3 ng/mL (0.0-6.4)
== END ==
PROVIDERS: PCP Family Medicine; Visit Provider Nurse Practitioner Family
DX: K76.9 Liver disease, unspecified (principal); K74.60 Unspecified cirrhosis of liver; K86.81 Exocrine pancreatic insufficiency; K72.90 Hepatic failure, unspecified without coma; K52.89 Other specified noninfective gastroenteritis and colitis; R19.7 Diarrhea, unspecified
CPT/HCPCS: 36415; 76705; 80053; 82105; 82140; 82728; 83540; 83550; 85025; 85610

== ENCOUNTER 2022-02-03 08:55 | Emergency (ER) | payer MEDICARE, SELFPAY ==
[2022-02-03 09:30] VITALS: BP 128/76; PULSE 70; RESP 19; TEMP 36.6; O2SAT 97; BMI 28.5
--- NOTE | 2022-02-03 09:50 | HMH.EDUTC ---
[facility] [place] Clinical Impression: Otitis media Qualifiers: Otitis media type: unspecified Laterality: left Qualified Code(s): H66.92 - Otitis media, unspecified, left ear Disposition: Home, Self-Care Condition on Discharge: Good Instructions: Middle Ear Infection, Ear Infections (Alternative Therapy) Additional Instructions: Take oral antibiotics for ear infection Milk of Mag on cotton ball may help with canker sore Follow up with ENT as scheduled Return if needed Straight to ER if any life threatening symptoms Prescriptions: Cefdinir [Omnicef 300mg Capsule] 300 mg PO BID 5 Days #10 cap Transmission Status: Pending to [facility] [employer] #[id number] Referrals: Jamir Schumacher MD [Primary Care Provider] - As needed Medical Decision Making - Gómez Inquiry Pt receiving controlled substance: No Gómez was queried for this patient: No Vital Signs: 02/03/22 09:30 Temperature 97.8 F Temperature Source Oral Pulse Rate [Right Brachial] 70 Respiratory Rate 19 Blood Pressure [Right Arm] 128/76 Blood Pressure Mean [Right Arm] 93 Blood Pressure Source [Right Arm] Automatic Cuff Blood Pressure Position [Right Arm] Sitting 02 Sat by Pulse Oximetry 97 Oxygen Delivery Method Room Air Medical Decision Narrative: medication discussed with pharmacy [facility] [place]PI - General Stated complaint: Can't hear out of L ear Time Seen by Provider: 02/03/22 09:50 Mode of Arrival: Ambulatory Source of Information: Patient Limitations: No Limitations Description of Symptoms (Recalled from Triage Doc. by RN): PATIENT C/O LEFT EAR PAIN SINCE YESTERDAY HEENT Symptoms (Recalled from RN notes): Yes Resp Symptoms (Recalled from RN notes): No Skin Symptoms (Recalled from RN notes): No MS Symptoms (Recalled from RN notes): No Functional Status (Recalled from RN notes): WNL - History of Present Illness Provider Complaint: Patient states that he is having pain in his left ear and cant hear well out of it States that he has been having pain for several days and not being able to hear well since yesterday so today he came in to get it checked out - Related Data Home Medications Medication Instructions Recorded Confirmed Aspirin [Aspirin 81mg EC Tab] 81 mg PO DAILY 06/23/17 12/04/21 Insulin Glargine,Hum.rec.anlog 22 units SQ BID 06/23/17 12/04/21 [Lantus Insulin 100units/mL 10mL vial] Meloxicam 15 mg PO DAILY 06/23/17 12/04/21 Metformin HCl [Glucophage 500mg 500 mg PO BID 06/23/17 12/04/21 Tablet] Gabapentin [Gabapentin 400mg Cap] 400 mg PO HS 02/23/19 12/04/21 ramipriL [Ramipril] 5 mg PO DAILY 02/23/19 12/04/21 omeprazole 40 mg capsule,delayed 40 mg PO DAILY 06/23/19 12/04/21 release calcium polycarbophil 625 mg tablet 1,250 mg PO DAILY 01/15/20 12/04/21 ocugui-sqfcmtiu-gouezyt 1 cap PO TID cap 01/15/20 12/04/21 36,000-114,000-180,000 unit capsule,delay rel budesonide 3 mg 3 mg PO DAILY 01/29/20 12/04/21 capsule,delayed,extended release pravastatin 80 mg tablet 80 mg PO DAILY tab 01/29/20 12/04/21 prednisone 10 mg tablet 10 mg PO DAILY tab 01/29/20 12/04/21 colestipol 5 gram oral granules 5 g PO DAILY 03/07/20 12/04/21 Previous Rx's Medication Instructions Recorded Fluticasone Propionate [Flonase 1 spr NS DAILY #1 each 04/20/21 50mcg nasal spray 16gm] Azithromycin [Z-Siva 250mg Tab*] 250 mg PO UD DOSE PK #6 tab 01/27/22 Benzonatate [Benzonatate 100mg 100 mg PO TIDP PRN #30 cap 01/27/22 cap] predniSONE [Prednisone 20mg 20 mg PO BID 3 Days #6 tab 01/27/22 Tab] Cefdinir [Omnicef 300mg Capsule] 300 mg PO BID 5 Days #10 cap 02/03/22 Allergies Allergy/AdvReac Type Severity Reaction Status Date / Time No Known Allergies Allergy Verified 12/04/21 09:57 - Worker's Comp Is this a Worker's Comp case?: No [facility] History - Hepatitis A Screen Attestation statement:: This patient has been screened for Hepatitis A risk factors. I have reviewed the patient's pas
[2022-02-03 09:55] VITALS: BP 128/76; PULSE 70; RESP 19; TEMP 36.6; O2SAT 97
== END 2022-02-03 10:05 | disposition home or self-care (01) ==
PROVIDERS: Emergency Provider Nurse Practitioner; PCP Family Medicine
DX: H66.92 Otitis media, unspecified, left ear (principal); N40.0 Benign prostatic hyperplasia without lower urinary tract symptoms; I10 Essential (primary) hypertension; E78.5 Hyperlipidemia, unspecified; E11.9 Type 2 diabetes mellitus without complications; M19.90 Unspecified osteoarthritis, unspecified site; Z79.4 Long term (current) use of insulin; Z79.51 Long term (current) use of inhaled steroids; Z79.52 Long term (current) use of systemic steroids; Z79.82 Long term (current) use of aspirin; Z79.84 Long term (current) use of oral hypoglycemic drugs; Z79.899 Other long term (current) drug therapy; Z82.49 Family history of ischemic heart disease and other diseases of the circulatory system
CPT/HCPCS: 99213; G0463

== ENCOUNTER → 2022-02-21 10:29 | Outpatient (CLI) | payer MEDICARE, SELFPAY ==
[2022-02-21 10:34] LABS: Adenovirus F 40/41, stool Not Detected (NotDetected); Astrovirus Not Detected (NotDetected); Campylobacter Not Detected (NotDetected); Clostridium Difficile A/B, PCR Not Detected (NotDetected); Cryptosporidium Not Detected (NotDetected); Cyclospora Cayetanesis Not Detected (NotDetected); Entamoeba histolytica Not Detected (NotDetected); Enteroaggregative E coli Not Detected (NotDetected); Enteropathogenic E coli Not Detected (NotDetected); Enterotoxigenic E coli Not Detected (NotDetected); Giardia lamblia Not Detected (NotDetected); Norovirus Not Detected (NotDetected); Plesimonas Shigalloides, PCR Not Detected (NotDetected); Rotavirus A Not Detected (NotDetected); Salmonella, PCR Not Detected (NotDetected); Sapovirus Not Detected (NotDetected); Shiga-like toxin E coli Not Detected (NotDetected); Shigella Enterovasive E coli Not Detected (NotDetected); Vibrio Cholerae Not Detected (NotDetected); Vibrio, PCR Not Detected (NotDetected); Yersinia Entercolitica, PCR Not Detected (NotDetected)
== END ==
PROVIDERS: PCP Family Medicine; Visit Provider Nurse Practitioner Family
DX: R19.7 Diarrhea, unspecified (principal); K52.89 Other specified noninfective gastroenteritis and colitis; K86.81 Exocrine pancreatic insufficiency; K72.90 Hepatic failure, unspecified without coma; K76.6 Portal hypertension; D64.9 Anemia, unspecified
CPT/HCPCS: 87506

== ENCOUNTER → 2022-05-04 10:15 | Outpatient (CLI) | payer MEDICARE, SELFPAY ==
[2022-05-04 11:21] LABS: Basophils # 0.1 K/mm3 (0-0.2); Basophils % 1.5 % (0.1-2.0); Eosinophils # 0.3 K/mm3 (0.0-0.4); Eosinophils % 4.9 % (0.1-12.0); Hematocrit 32.1 % (42.0-52.0); Hemoglobin 10.9 g/dL (14.1-18.0); Lymphocytes # 1.4 K/mm3 (0.7-4.5); Lymphocytes % 25.7 % (10-50); Mean Corpuscular HGB Conc 33.9 g/dL (31.8-35.4); Mean Corpuscular Hemoglobin 30.7 pg (27.0-31.2); Mean Corpuscular Volume 90.6 fl (80-94); Mean Platelet Volume 8.6 fl (7.4-10.4); Monocytes # 0.5 K/mm3 (0.1-1.0); Monocytes % 8.9 % (1.7-9.3); Neutrophils # 3.2 K/mm3 (1.8-7.8); Platelet Count 109 K/mm3 (142-424); Red Blood Count 3.55 M/mm3 (4.60-6.20); White Blood Count 5.5 K/mm3 (4.8-10.8)
[2022-05-04 11:53] LABS: Iron 76 ug/dL (49-181)
[2022-05-04 12:03] LABS: Total Iron Binding Capacity 242 ug/dL (261-462)
[2022-05-04 12:29] LABS: Ferritin 136 ng/ml (17.9-464)
== END ==
PROVIDERS: PCP Family Medicine; Visit Provider Nurse Practitioner Family
DX: D64.9 Anemia, unspecified (principal); K74.60 Unspecified cirrhosis of liver; K76.6 Portal hypertension
CPT/HCPCS: 36415; 82728; 83540; 83550; 85025

== ENCOUNTER 2022-06-23 13:29 | Emergency (ER) | payer MEDICARE, SELFPAY ==
[2022-06-23 13:40] VITALS: BP 183/96; PULSE 73; RESP 18; TEMP 36.9; O2SAT 93; BMI 27.4
--- NOTE | 2022-06-23 14:03 | EXP.UTC ---
Discharge Plan Disposition Patient Disposition: Home, Self-Care Condition: Good Prescriptions Prescriptions: New cefdinir 300 mg capsule 300 mg PO Q12H 10 Days Qty: 20 0RF No Action colestipol 5 gram granules 5 g PO DAILY Creon 36,000-114,000- 180,000 unit capsule,delayed release(DR/EC) 1 cap PO TID Rx Instructions: administer with meals and/or snacks calcium polycarbophil [FiberCon] 625 mg tablet 1,250 mg PO DAILY pravastatin 80 mg tablet 80 mg PO DAILY nadolol 20 mg tablet 20 mg PO DAILY gabapentin 400 MG capsule 400 mg PO HS ramipril 5 MG capsule 5 mg PO DAILY Label Comments: take 1 capsule by mouth once daily fluticasone propionate 120 SPR/BOT bottle 1 spr NS DAILY Qty: 1 0RF Rx Instructions: one spray each notril daily metformin 500 MG tablet 500 mg PO BID Label Comments: insulin glargine 100 UNIT/ML solution 22 units SQ BID Label Comments: aspirin 81 MG tablet,delayed release (DR/EC) 81 mg PO DAILY furosemide 20 mg tablet 20 mg PO DAILY PRN (Reason: Edema) Label Comments: TAKE 1 TABLET BY MOUTH EVERY DAY NEEDED Referrals Follow up/Referrals: Jamir Schumacher MD [Primary Care Provider] - See instructions Activity Restrictions/Add. Instructions Additional Instructions/Restrictions: *Monitor Temp, Over the counter Motrin or Tylenol as directed/as needed Tylenol every 4 hours and Motrin every 6 hours (as long as your family doctor has told you that you can take it) for fever or pain. and straight to ER if unable to lower temp less than 101.0 after medication given *Warm salt water gargles may help to soothe the throat *Throat Lozenges? *Warm fluids like tea with honey may help to soothe the throat? *Sleep elevated *Humidifier/Vaporizer *Flonase 2 sprays in each nostril daily but be aware that it may take 2-3 days before you notice improvement *Bromfed may cause drowsiness. Know how it effects you (your child) before driving, caring for small child, or sending your child to school. Not other antihistamines/allergy medications while taking bromfed Your throat swab was sent for culture. Those results are typically sent to your primary care. Be sure to follow up in 2-3 days with your family doctor/primary care physician if no improvement so they can review those result and treat if necessary. If you don?t have a primary care doctor, I recommend you get one but in the mean time, you will have to return to a walk in clinic Follow up IMMEDIATELY for new or worsening symptoms or no Noticeable improvement over the next 48-72 hours. 911 for difficulty breathing or swallowing You were tested for today for Flu and COVID19 your test result should be back later today, you may check your results on the [facility] Clinical Impressions Clinical Impression: Pharyngitis Qualifiers: Pharyngitis/tonsillitis etiology: unspecified etiology Qualified Code(s): J02.9 - Acute pharyngitis, unspecified Instructions Patient Instructions: Sore Throat, DI for Sinusitis Discharge ED Provider: Minerva [facility] HPI General Stated complaint: Sore throat, ear pain, congestion Mode of Arrival: Ambulatory Source of Information: Patient and Spouse Time Seen by Provider: 06/23/22 14:03 Description of Symptoms (Recalled from Triage Doc. by RN): sore throat, ear ache, congestion HEENT Symptoms (Recalled from RN notes): Yes Resp Symptoms (Recalled from RN notes): No Skin Symptoms (Recalled from RN notes): No MS Symptoms (Recalled from RN notes): No Functional Status (Recalled from RN notes): n/a History of Present Illness Provider Complaint: states that he has been complaining of pain in his left ear, sore throat and his throat hurts when he coughs or swallows States that today he was holding his throat still complaining that his throat hurts really bad so she talked
[2022-06-23 14:41] LABS: UTC Strep Screen (Rapid) Negative (Negative)
[2022-06-23 14:55] LABS: Coronavirus 19, PCR Not Detected (NotDetected); Influenza A, PCR Not Detected (NotDetected); Influenza B, PCR Not Detected (NotDetected)
[2022-06-23 15:06] VITALS: BP 183/96; PULSE 73; RESP 18; TEMP 36.9; O2SAT 95
== END 2022-06-23 15:00 | disposition home or self-care (01) ==
PROVIDERS: Emergency Provider Nurse Practitioner; PCP Family Medicine
DX: J02.9 Acute pharyngitis, unspecified (principal)
CPT/HCPCS: 87880; 99212; 99213; C9803; G0463; U0003; U0005

== ENCOUNTER → 2022-07-01 10:31 | Outpatient (CLI) | payer MEDICARE, SELFPAY ==
--- NOTE | 2022-07-01 10:38 | XR_ITS ---
FINAL REPORT CLINICAL HISTORY: SOB COMPARISON: 01/27/2022 FINDINGS: TWO-VIEW CHEST There is cardiomegaly with mild pulmonary vascular congestion, stable. The mediastinum is normal. The lungs are clear. There is no pneumothorax. IMPRESSION: Cardiomegaly with mild pulmonary vascular congestion, stable. Reviewed, Interpreted and Dictated by Abhay Araujo III, MD Transcribed by Lucia Martinez Authenticated and [facility]
--- NOTE | 2022-07-01 10:38 | XR_ITS ---
FINAL REPORT CLINICAL HISTORY: RT KNEE PAIN COMPARISON: 10/27/2021 FINDINGS: Right knee Three views were obtained. There is no acute fracture or dislocation. There are mild degenerative changes. There is medial compartment narrowing. No soft tissue abnormality is identified. IMPRESSION: No acute process. Reviewed, Interpreted and Dictated by Abhay Araujo III, MD Transcribed by Lucia Martinez Authenticated and [facility]
--- NOTE | 2022-07-01 10:38 | XR_ITS ---
FINAL REPORT CLINICAL HISTORY: LT KNEE PAIN COMPARISON: 10/27/2021 FINDINGS: Left knee Three views were obtained. There is no acute fracture or dislocation. There are ivtf-st-sgzmjbzo degenerative changes with medial compartment narrowing. Findings are similar to previous. No soft tissue abnormality is identified. IMPRESSION: No acute process. Reviewed, Interpreted and Dictated by Abhay Araujo III, MD Transcribed by Lucia Martinez Authenticated and [facility]
== END ==
PROVIDERS: PCP Family Medicine; Visit Provider Physician Assistant
DX: R06.02 Shortness of breath (principal); M25.562 Pain in left knee; M25.561 Pain in right knee
CPT/HCPCS: 71046; 73562

== ENCOUNTER → 2022-07-08 10:39 | Outpatient (CLI) | payer MEDICARE, SELFPAY ==
--- NOTE | 2022-07-08 | CA_ITS ---
APPROVED REPORT EXAM: Comprehensive 2D, Doppler, and color-flow Echocardiogram Senior Strategy Manager: Annie Rice CRT Ht: 6 ft 0 in Wt: 210lbs BSA: 2.18 BP: 164/86 mmHg Indications: Congestive Heart Failure, Diabetes 2D Dimensions LVOT 1.93 cm (M/F) 1.5-2.5 M-Mode Dimensions RVDd 2.57 cm (0.9-2.6) LA Diam 3.66 cm (1.9-4.0) LVDd 5.36 cm (3.5-5.7) Ao Diam 4.09 cm (2.0-3.7) LVDs 3.47 cm (3.5-5.7) IVSd 2.13 cm (0.6-1.1) PWd 0.82 cm (0.6-1.1) EF (Teich) 64.10% FS 35.30% EDV (Teich) 138.90 mL TAPSE 1.93 (<1.7) ESV (Teich) 49.80 mL LV Diastology E Decel Time 397.00 (160-240 msec) E/A Ratio 1.03 MED E' 3.90 (< 7 cm/sec) MED A' 7.40 cm/s E'/MED E' Ratio 26.10 (>14) LAT E' 3.50 (<10 cm/sec) LAT A' 7.20 cm/s E/LAT E' Ratio 29.09 (>14) Aortic Valve LVOT Max 128.00 (70-110 cm/s) LVOT VTI 33.58 cm AoV Peak Singh. 232.00 (50-130 cm/s) AO Peak GR. 21.50 mmHg AO Mean GR. 12.70 (<5 mmHg) AO VTI 57.20 (18-25 cm) BENITO (VTI) 1.72 (2.5-4.5 cm2) Mitral Valve MV E Max Singh. 102.00 (40-130 cm/s) MV A Velocity 98.00 (40-130 cm/s) E/A Ratio 1.03 MV Decel. Time 397.00 (160-240 ms) MV PHT 116.00 ms Pulmonary Valve PV Peak Velocity 125.00 (50-150 cm/s) Tricuspid Valve TR P. Velocity 138.00 cm/s RAP Estimate 10.00 mmHg RVSP 17.60 mmHg Left Ventricle Left atrium is mildly enlarged, left ventricle is normal size mild concentric left ventricular hypertrophy, estimated ejection fraction 55% with no regional wall motion abnormality, grade 1 diastolic dysfunction seen with tissue Doppler evidence of raise left atrial pressure. Right Ventricle Right atrium and right ventricle are mildly enlarged with normal contractility. Aortic Valve Aortic valve is thickened and calcified with restriction in the leaflet mobility, mean gradient across aortic valve is 12 mmHg, valve area is 1.6 cm??? represents mild aortic stenosis, there is no significant aortic insufficiency. Mitral Valve Mitral valve has mitral annular calcification with extensive both anterior and posterior mitral leaflet, there is no mitral stenosis, there is mild mitral regurgitation. Tricuspid Valve Tricuspid valve is grossly normal, there is mild tricuspid regurgitation, tricuspid regurgitation jet velocity is inadequate for calculation of the right ventricular systolic pressure. Pulmonic Valve Pulmonic valve is poorly visualized. Great Vessels Aortic root is normal size. Inferior vena cava is poorly visualized. Pericardium No significant pericardial effusion noted. Conclusion 1. Mildly enlarged left atrium, normal left ventricular size, mild concentric left ventricular hypertrophy, estimated ejection fraction 55% with no regional wall motion abnormality, grade 1 diastolic dysfunction seen with tissue Doppler evidence of raise left atrial pressure. 2. Thickened and calcified aortic valve with mild aortic stenosis, valve area is 1.6 cm???, there is no significant aortic insufficiency. 3. Mild mitral and tricuspid regurgitation. 4. No significant pericardial effusion. 5. Inferior vena cava is poorly visualized. Electronically signed by : Alec Black MD 07/09/2022 05:57:44
== END ==
PROVIDERS: PCP Family Medicine; Visit Provider Physician Assistant
DX: I50.1 Left ventricular failure, unspecified (principal)
CPT/HCPCS: 93306

== ENCOUNTER → 2022-08-04 07:53 | Outpatient (CLI) | payer MEDICARE, SELFPAY ==
--- NOTE | 2022-08-04 07:57 | US_ITS ---
FINAL REPORT TECHNIQUE: Sonographic images of the right upper quadrant were obtained. CLINICAL HISTORY: FATTY LIVER,CIRRHOSIS,ANEMIA,HTN,DIARRHEA,COLITIS COMPARISON: 02/03/2022 FINDINGS: The liver is coarsened in echotexture and nodularity in contour. There is no focal hepatic lesion or intrahepatic biliary dilatation. The gallbladder is absent. The common duct measures 3 mm which is within normal limits. The pancreatic tail is partially obscured by bowel gas. Otherwise, it has a normal appearance. Right renal cyst is unchanged. There is worsening perihepatic ascites. IMPRESSION: Cirrhosis. Worsening ascites. Reviewed, Interpreted and Dictated by Nidhi Heller MD Transcribed by Lucia Martinez Authenticated and [facility]
== END ==
PROVIDERS: PCP Family Medicine; Visit Provider Nurse Practitioner Family
DX: K76.9 Liver disease, unspecified (principal); K74.60 Unspecified cirrhosis of liver; D64.9 Anemia, unspecified; K72.90 Hepatic failure, unspecified without coma; K76.6 Portal hypertension; K86.81 Exocrine pancreatic insufficiency; K52.89 Other specified noninfective gastroenteritis and colitis; R19.7 Diarrhea, unspecified
CPT/HCPCS: 76705

== ENCOUNTER → 2022-08-10 13:43 | Outpatient (CLI) | payer MEDICARE, SELFPAY ==
[2022-08-10 14:49] LABS: Ammonia 15 umol/L (9-30); INR 1.08 (0.9-1.1); Prothrombin Time 11.6 seconds (10.1-12.5)
[2022-08-10 14:53] LABS: Chloride 112 mmol/L (98-107); Sodium 139 mmol/L (136-145)
[2022-08-10 14:54] LABS: Potassium 5.7 mmoL/L (3.5-5.1)
[2022-08-10 14:56] LABS: Alanine Aminotransferase 34 U/L (12-78); Alkaline Phosphatase 63 U/L (38-126); Anion Gap 9.7 mEq/L (5-15); Aspartate Amino Transferase 56 U/L (17-59); Bilirubin,Total 0.6 mg/dl (0.2-1.3); Blood Urea Nitrogen 28 mg/dl (9-20); Calcium 8.2 mg/dl (8.4-10.2); Carbon Dioxide 23 mmol/L (22.0-30.0); Estimated Glomerular Filt Rate 53 ml/min (>60); GFR (African American) 64 ML/MIN (>60); Glucose 174 mg/dl (74-100); Iron 84 ug/dL (49-181)
[2022-08-10 14:57] LABS: Albumin Level 3.2 g/dl (3.5-5.0); Albumin/Globulin Ratio 1.2 (1.1-1.8); Globulin 2.6 g/dL (1.3-3.2); Total Protein,Serum 5.8 g/dl (6.3-8.2)
[2022-08-10 15:06] LABS: Total Iron Binding Capacity 234 ug/dL (261-462)
[2022-08-10 15:31] LABS: Ferritin 165 ng/ml (17.9-464)
[2022-08-10 15:52] LABS: Basophils % 0.5 % (0.1-2.0); Eosinophils # 0.2 K/mm3 (0.0-0.4); Eosinophils % 3.1 % (0.1-12.0); Hematocrit 31.1 % (42.0-52.0); Hemoglobin 10.2 g/dL (14.1-18.0); Lymphocytes # 1.4 K/mm3 (0.7-4.5); Lymphocytes % 23.2 % (10-50); Mean Corpuscular HGB Conc 32.9 g/dL (31.8-35.4); Mean Corpuscular Hemoglobin 30.2 pg (27.0-31.2); Mean Corpuscular Volume 91.7 fl (80-94); Mean Platelet Volume 8.9 fl (7.4-10.4); Monocytes # 0.4 K/mm3 (0.1-1.0); Monocytes % 7.4 % (1.7-9.3); Neutrophils # 3.9 K/mm3 (1.8-7.8); Neutrophils % 65.8 % (37.0-80.0); Platelet Count 96 K/mm3 (142-424); Red Blood Count 3.39 M/mm3 (4.60-6.20); Red Cell Distribution Width 14.6 % (11.5-17.5); White Blood Count 5.9 K/mm3 (4.8-10.8)
[2022-08-12 08:16] LABS: AFP, Tumor Marker 2.3 ng/mL (0.0-6.4)
== END ==
PROVIDERS: PCP Family Medicine; Visit Provider Nurse Practitioner Family
DX: D64.9 Anemia, unspecified (principal); K72.90 Hepatic failure, unspecified without coma; K76.6 Portal hypertension; R19.7 Diarrhea, unspecified; K86.81 Exocrine pancreatic insufficiency; K52.89 Other specified noninfective gastroenteritis and colitis; K74.60 Unspecified cirrhosis of liver
CPT/HCPCS: 36415; 80053; 82105; 82140; 82728; 83540; 83550; 85025; 85610

== ENCOUNTER → 2022-08-14 12:38 | Outpatient (CLI) | payer MEDICARE, SELFPAY ==
[2022-08-14 14:56] LABS: Basophils # 0.1 K/mm3 (0-0.2); Basophils % 0.9 % (0.1-2.0); Eosinophils # 0.3 K/mm3 (0.0-0.4); Eosinophils % 3.3 % (0.1-12.0); Hematocrit 31.6 % (42.0-52.0); Hemoglobin 10.5 g/dL (14.1-18.0); Lymphocytes # 1.9 K/mm3 (0.7-4.5); Lymphocytes % 24.4 % (10-50); Mean Corpuscular HGB Conc 33.2 g/dL (31.8-35.4); Mean Corpuscular Hemoglobin 30.7 pg (27.0-31.2); Mean Corpuscular Volume 92.4 fl (80-94); Mean Platelet Volume 8.3 fl (7.4-10.4); Monocytes # 0.5 K/mm3 (0.1-1.0); Neutrophils % 64.3 % (37.0-80.0); Platelet Count 106 K/mm3 (142-424); Red Blood Count 3.42 M/mm3 (4.60-6.20); Red Cell Distribution Width 14.6 % (11.5-17.5); White Blood Count 7.7 K/mm3 (4.8-10.8)
[2022-08-14 15:25] LABS: Chloride 113 mmol/L (98-107); Sodium 139 mmol/L (136-145)
[2022-08-14 15:26] LABS: Potassium 5.8 mmoL/L (3.5-5.1)
[2022-08-14 15:28] LABS: Alanine Aminotransferase 34 U/L (12-78); Albumin Level 3.4 g/dl (3.5-5.0); Albumin/Globulin Ratio 1.1 (1.1-1.8); Alkaline Phosphatase 70 U/L (38-126); Anion Gap 6.8 mEq/L (5-15); Aspartate Amino Transferase 54 U/L (17-59); Bilirubin,Total 0.9 mg/dl (0.2-1.3); Blood Urea Nitrogen 27 mg/dl (9-20); Carbon Dioxide 25 mmol/L (22.0-30.0); Estimated Glomerular Filt Rate 53 ml/min (>60); GFR (African American) 64 ML/MIN (>60); Glucose 133 mg/dl (74-100); Iron 112 ug/dL (49-181); Total Protein,Serum 6.4 g/dl (6.3-8.2)
[2022-08-14 15:38] LABS: Total Iron Binding Capacity 247 ug/dL (261-462)
[2022-08-14 16:04] LABS: Ferritin 172 ng/ml (17.9-464)
== END ==
PROVIDERS: PCP Family Medicine; Visit Provider Nurse Practitioner Family
DX: K76.9 Liver disease, unspecified (principal); K74.60 Unspecified cirrhosis of liver; K72.90 Hepatic failure, unspecified without coma; K76.6 Portal hypertension; R16.1 Splenomegaly, not elsewhere classified
CPT/HCPCS: 36415; 80053; 82728; 83540; 83550; 85025

== ENCOUNTER → 2022-08-17 14:45 | Outpatient (CLI) | payer MEDICARE, SELFPAY ==
[2022-08-17 20:48] LABS: Occult Blood,Stool Negative (Negative)
[2022-08-17 20:48] LABS: Occult Blood,Stool Negative (Negative)
[2022-08-17 20:48] LABS: Occult Blood,Stool Negative (Negative)
== END ==
PROVIDERS: PCP Family Medicine; Visit Provider Nurse Practitioner Family
DX: K76.9 Liver disease, unspecified (principal); K74.60 Unspecified cirrhosis of liver; K72.90 Hepatic failure, unspecified without coma; K76.6 Portal hypertension; R16.1 Splenomegaly, not elsewhere classified
CPT/HCPCS: 82272; G0328

== ENCOUNTER → 2022-08-28 10:06 | Outpatient (CLI) | payer MEDICARE, SELFPAY ==
[2022-08-28 11:33] LABS: Chloride 106 mmol/L (98-107)
[2022-08-28 11:34] LABS: Sodium 135 mmol/L (136-145)
[2022-08-28 11:36] LABS: Alanine Aminotransferase 29 U/L (12-78); Alkaline Phosphatase 72 U/L (38-126); Aspartate Amino Transferase 49 U/L (17-59); Bilirubin,Total 0.7 mg/dl (0.2-1.3); Blood Urea Nitrogen 35 mg/dl (9-20); Carbon Dioxide 25 mmol/L (22.0-30.0); Estimated Glomerular Filt Rate 41 ml/min (>60); GFR (African American) 50 ML/MIN (>60)
[2022-08-28 11:37] LABS: Albumin Level 3.4 g/dl (3.5-5.0); Albumin/Globulin Ratio 1.3 (1.1-1.8); Calcium 9.2 mg/dl (8.4-10.2); Globulin 2.7 g/dL (1.3-3.2); Glucose 85 mg/dl (74-100); Total Protein,Serum 6.1 g/dl (6.3-8.2)
[2022-08-28 13:43] LABS: NT Pro Brain Natriuretic Pep. 1200 pg/mL (0-450)
[2022-08-28 14:14] LABS: 25-OH Vitamin D, Total 39.4 ng/mL (30-100)
== END ==
PROVIDERS: Nurse Practitioner Family; Physician Assistant; PCP Family Medicine; Visit Provider Internal Medicine Gastroenterology
DX: I50.9 Heart failure, unspecified (principal); E55.9 Vitamin D deficiency, unspecified
CPT/HCPCS: 36415; 80053; 82306; 83880

== ENCOUNTER 2022-08-28 14:42 | Emergency (ER) | payer MEDICARE, SELFPAY ==
[2022-08-28 14:42] VITALS: BP 184/83; PULSE 65; RESP 17; TEMP 36.6; O2SAT 99; BMI 25.6
--- NOTE | 2022-08-28 14:45 | HMH.EDGENADL ---
Discharge Plan Disposition Patient Disposition: Admitted As Inpatient Prescriptions Prescriptions: No Action colestipol 5 gram granules 5 g PO DAILY ramipril 10 mg capsule 10 mg PO DAILY Creon 36,000-114,000- 180,000 unit capsule,delayed release(DR/EC) 1 cap PO TID Rx Instructions: administer with meals and/or snacks calcium polycarbophil [FiberCon] 625 mg tablet 1,250 mg PO DAILY pravastatin 80 mg tablet 80 mg PO DAILY nadolol 20 mg tablet 20 mg PO DAILY gabapentin 400 MG capsule 400 mg PO HS fluticasone propionate 120 SPR/BOT bottle 1 spr NS DAILY Qty: 1 0RF Rx Instructions: one spray each notril daily metformin 500 MG tablet 500 mg PO BID Label Comments: insulin glargine 100 UNIT/ML solution 22 units SQ BID Label Comments: aspirin 81 MG tablet,delayed release (DR/EC) 81 mg PO DAILY furosemide 20 mg tablet 20 mg PO DAILY PRN (Reason: Edema) Label Comments: TAKE 1 TABLET BY MOUTH EVERY DAY NEEDED cefdinir 300 mg capsule 300 mg PO Q12H 10 Days Qty: 20 0RF Referrals Follow up/Referrals: Jamir Schumacher MD [Primary Care Provider] - See instructions Clinical Impressions Clinical Impression: Acute hyperkalemia, CKD (chronic kidney disease) Discharge ED Provider: Bereket Escobar [facility] Adult HPI General Stated complaint: Phys ref, high potassium Time Seen by Provider: 08/28/22 14:45 History of Present Illness HPI narrative: Patient is an 82-year-old male presenting with hyperkalemia. Has a history of heart failure and cirrhosis and his physicians have been having difficult time controlling his hypertension outpatient as well as his cirrhosis. He is having escalation in his doses of antihypertensive medications and his diuretics. He recently had amlodipine added to his regimen according to his at the bedside. He is also on Lasix and spironolactone. Went to his outpatient doctor today for follow-up and had lab test that were drawn showing a potassium of 6.0 and a creatinine of 1.6. These have been trending up over time. They called Dr. Andrade with [facility] sent the patient to the emergency department patient is currently without any symptoms. Of note patient does have a history of an interventricular conduction delay on old EKGs. Related Data Home Medications Medication Instructions Recorded Confirmed aspirin 81 mg tablet,delayed 81 mg PO DAILY Heart disease 06/23/17 07/30/22 release insulin glargine 100 unit/mL 22 units SQ BID Diabetes 06/23/17 07/30/22 subcutaneous solution metformin 500 mg tablet 500 mg PO BID Diabetes 06/23/17 07/30/22 gabapentin 400 mg capsule 400 mg PO HS Pain 02/23/19 07/30/22 calcium polycarbophil 625 mg 1,250 mg PO DAILY Diet supplement 01/15/20 07/30/22 tablet (FiberCon) vpyvoz-xvngjpoh-slgcwuh 1 cap PO TID Diet supplement 01/15/20 07/30/22 36,000-114,000-180,000 unit capsule,delay rel (Creon) pravastatin 80 mg tablet 80 mg PO DAILY Cholesterol 01/29/20 07/30/22 colestipol 5 gram oral granules 5 g PO DAILY Diet supplement 03/07/20 07/30/22 nadolol 20 mg tablet 20 mg PO DAILY Blood pressure 03/05/22 07/30/22 furosemide 20 mg tablet 20 mg PO DAILY PRN Edema 06/23/22 07/30/22 ramipril 10 mg capsule 10 mg PO DAILY 07/14/22 07/30/22 Previous Rx's Medication Instructions Recorded fluticasone propionate 50 1 spr intranasal DAILY #1 ea 04/20/21 mcg/actuation nasal spray,suspension cefdinir 300 mg capsule 300 mg PO Q12H 10 days #20 caps 06/23/22 Allergies Allergy/AdvReac Type Severity Reaction Status Date / Time No Known Allergies Allergy Verified 07/30/22 13:13 [facility] Disclaimer: The information contained in this section may have been updated after the patient was seen, as this information can be updated by other users. Medical History Diabete
[2022-08-28 14:50] VITALS: BP 184/83; PULSE 62; RESP 15; O2SAT 99
--- NOTE | 2022-08-28 14:55 | ECG_ITS ---
APPROVED REPORT Exam: Resting ECG HR:62 bpm ECG Measurements Heart Rate 62 AXES OH 262 P 99 QRSd 169 QRS -78 QT 450 T 55 QTc 455 Conclusion SINUS RHYTHM WITH FIRST DEGREE AV BLOCK RIGHT BUNDLE BRANCH BLOCK [120+ ms QRS DURATION, UPRIGHT V1, 40+ ms S IN I/aVL/V4/V5/V6] LEFT ANTERIOR FASCICULAR BLOCK [QRS AXIS <= -45, QR IN I, RS IN II] ABNORMAL ECG UNCONFIRMED REPORT Electronically signed by : Braden Erazo MD 08/28/2022 16:01:25
--- NOTE | 2022-08-28 15:26 | PC.NURSE ---
Attempted to call 's office. No answer; called [employer] machine operator and asked them to page director of rehabilitation
[2022-08-28 15:31] VITALS: BP 158/84; PULSE 57; O2SAT 98
--- NOTE | 2022-08-28 15:48 | PC.NURSE ---
speaking with Dr. Prado who recommends outpatient treatment and not admission.
[2022-08-28 16:06] VITALS: BP 162/78; PULSE 91; RESP 16; TEMP 36.6; O2SAT 98
== END 2022-08-28 16:07 | disposition home or self-care (01) ==
PROVIDERS: Emergency Provider Student in an Organized Health Care Education/Training Program; PCP Family Medicine
DX: E87.5 Hyperkalemia (principal); N18.9 Chronic kidney disease, unspecified; I50.9 Heart failure, unspecified; K74.60 Unspecified cirrhosis of liver; I13.0 Hypertensive heart and chronic kidney disease with heart failure and stage 1 through stage 4 chronic kidney disease, or unspecified chronic kidney disease; E11.22 Type 2 diabetes mellitus with diabetic chronic kidney disease; E78.5 Hyperlipidemia, unspecified; Z87.891 Personal history of nicotine dependence; Z82.49 Family history of ischemic heart disease and other diseases of the circulatory system
CPT/HCPCS: 36415; 80053; 82306; 83880; 93005; 99285

== ENCOUNTER → 2022-08-31 08:36 | Outpatient (CLI) | payer MEDICARE, SELFPAY ==
[2022-08-31 09:52] LABS: Alanine Aminotransferase 28 U/L (12-78); Albumin Level 3.5 g/dl (3.5-5.0); Albumin/Globulin Ratio 1.3 (1.1-1.8); Alkaline Phosphatase 71 U/L (38-126); Aspartate Amino Transferase 47 U/L (17-59); Bilirubin,Total 0.8 mg/dl (0.2-1.3); Blood Urea Nitrogen 45 mg/dl (9-20); Calcium 9.1 mg/dl (8.4-10.2); Carbon Dioxide 25 mmol/L (22.0-30.0); Chloride 108 mmol/L (98-107); Estimated Glomerular Filt Rate 34 ml/min (>60); GFR (African American) 41 ML/MIN (>60); Globulin 2.7 g/dL (1.3-3.2); Glucose 90 mg/dl (74-100); Sodium 139 mmol/L (136-145); Total Protein,Serum 6.2 g/dl (6.3-8.2)
[2022-08-31 10:08] LABS: NT Pro Brain Natriuretic Pep. 1020 pg/mL (0-450)
[2022-08-31 10:17] LABS: 25-OH Vitamin D, Total 45.2 ng/mL (30-100)
== END ==
PROVIDERS: PCP Family Medicine; Visit Provider Physician Assistant
DX: R06.09 Other forms of dyspnea (principal); R60.0 Localized edema; E87.5 Hyperkalemia; E55.9 Vitamin D deficiency, unspecified
CPT/HCPCS: 36415; 80053; 82306; 83880

== ENCOUNTER → 2022-09-07 09:09 | Outpatient (CLI) | payer MEDICARE, SELFPAY ==
[2022-09-07 09:56] LABS: Anion Gap 9.9 mEq/L (5-15); Blood Urea Nitrogen 50 mg/dl (9-20); Carbon Dioxide 26 mmol/L (22.0-30.0); Chloride 104 mmol/L (98-107); Estimated Glomerular Filt Rate 32 ml/min (>60); GFR (African American) 39 ML/MIN (>60); Glucose 96 mg/dl (74-100); Potassium 5.9 mmoL/L (3.5-5.1); Sodium 134 mmol/L (136-145)
== END ==
PROVIDERS: PCP Family Medicine; Visit Provider Nurse Practitioner Family
DX: E87.5 Hyperkalemia (principal)
CPT/HCPCS: 36415; 80048

== ENCOUNTER 2022-09-14 07:50 | Emergency (ER) | payer MEDICARE, SELFPAY ==
[2022-09-14] VITALS (9 sets, daily range): BP systolic 141–174; BP diastolic 69–82; PULSE 69–81; RESP 14–20; TEMP 36.8; O2SAT 93–97; BMI 22.5
--- NOTE | 2022-09-14 07:59 | XR_ITS ---
FINAL REPORT CLINICAL HISTORY: swelling COMPARISON: 07/01/2022 FINDINGS: A portable view of the chest was obtained. Comparison is made to a prior exam dated 07/01/2022. Cardiac and mediastinal silhouettes are within normal limits. There are mildly increased interstitial markings which is more pronounced in the lung bases. This is worsened from the prior exam and may represent mild edema. There is no pleural effusion or pneumothorax. IMPRESSION: Mild increased interstitial markings, worse from the prior and may represent mild edema. Reviewed, Interpreted and Dictated by Nidhi Heller MD Transcribed by Jessie Montano Authenticated and [facility]
--- NOTE | 2022-09-14 08:02 | ECG_ITS ---
APPROVED REPORT Exam: Resting ECG HR:79 bpm ECG Measurements Heart Rate 79 AXES FL 257 P 50 QRSd 158 QRS -67 QT 408 T 27 QTc 443 Conclusion SINUS RHYTHM WITH FIRST DEGREE AV BLOCK RIGHT BUNDLE BRANCH BLOCK [120+ ms QRS DURATION, UPRIGHT V1, 40+ ms S IN I/aVL/V4/V5/V6] LEFT ANTERIOR FASCICULAR BLOCK [QRS AXIS <= -45, QR IN I, RS IN II] ABNORMAL ECG UNCONFIRMED REPORT Electronically signed by : Braden Erazo MD 09/15/2022 03:03:43
[2022-09-14 08:03] LABS: Basophils # 0.1 K/mm3 (0-0.2); Basophils % 0.7 % (0.1-2.0); Eosinophils # 0.3 K/mm3 (0.0-0.4); Eosinophils % 2.6 % (0.1-12.0); Hematocrit 30.9 % (42.0-52.0); Hemoglobin 10.5 g/dL (14.1-18.0); Lymphocytes # 1.4 K/mm3 (0.7-4.5); Lymphocytes % 13.9 % (10-50); Mean Corpuscular Hemoglobin 30.6 pg (27.0-31.2); Mean Corpuscular Volume 89.7 fl (80-94); Mean Platelet Volume 9.2 fl (7.4-10.4); Monocytes # 0.6 K/mm3 (0.1-1.0); Monocytes % 6.5 % (1.7-9.3); Neutrophils # 7.6 K/mm3 (1.8-7.8); Neutrophils % 76.2 % (37.0-80.0); Platelet Count 96 K/mm3 (142-424); Red Blood Count 3.44 M/mm3 (4.60-6.20); White Blood Count 9.9 K/mm3 (4.8-10.8)
--- NOTE | 2022-09-14 08:08 | XR_ITS ---
FINAL REPORT CLINICAL HISTORY: foot pain FINDINGS: RIGHT FOOT 2 views of the right foot were obtained. There is no acute fracture or dislocation. There is mild degenerative disease of the 1st metatarsal joint. A small metallic density is seen is within the dorsal aspect of the distal phalanx of the great toe with apparent soft tissue edema along the nail bed. Visualized joint spaces are normally aligned. IMPRESSION: No acute bony abnormality. Small metallic density within the dorsal aspect of the distal phalanx of the great toe with apparent soft tissue edema along the nail bed. Reviewed, Interpreted and Dictated by Nidhi Heller MD Transcribed by Alannah Tello Authenticated and [facility]
[2022-09-14 08:10] LABS: Alanine Aminotransferase 28 U/L (12-78); Albumin Level 3.5 g/dl (3.5-5.0); Alkaline Phosphatase 78 U/L (38-126); Aspartate Amino Transferase 44 U/L (17-59); Bilirubin,Unconjugated 1.1 mg/dL (0.0-1.1); Total Protein,Serum 6.4 g/dl (6.3-8.2)
[2022-09-14 08:11] LABS: Blood Urea Nitrogen 54 mg/dl (9-20); Calcium 8.8 mg/dl (8.4-10.2); Carbon Dioxide 23 mmol/L (22.0-30.0); Chloride 108 mmol/L (98-107); Creatinine Clearance Estimated 34 mL/min (50-200); Estimated Glomerular Filt Rate 32 ml/min (>60); GFR (African American) 39 ML/MIN (>60); Glucose 77 mg/dl (74-100); Sodium 138 mmol/L (136-145)
[2022-09-14 08:20] LABS: NT Pro Brain Natriuretic Pep. 1220 pg/mL (0-450)
[2022-09-14 08:24] LABS: Magnesium 2.3 mg/dl (1.6-2.3)
[2022-09-14 08:38] LABS: Troponin I < 0.01 ng/ml (0.00-0.034)
--- NOTE | 2022-09-14 09:06 | CT_ITS ---
FINAL REPORT TECHNIQUE: Thin section axial images were obtained from skull base to vertex without contrast. Coronal reconstruction images were obtained from the axial data. Exam was performed using dose reduction technique. CLINICAL HISTORY: headache FINDINGS: There is age-appropriate atrophy. There is no mass effect or midline shift. There is no intracranial hemorrhage. There is no hydrocephalus. Periventricular low density is likely related to changes of chronic small vessel ischemia. The basilar cisterns are preserved. The posterior fossa is without acute abnormality. There is a small mucous retention cyst or polyp in the right sphenoid sinus. No acute osseous abnormality is identified. IMPRESSION: No acute intracranial abnormality. If concern persists consider MRI. Atrophy and changes suggesting chronic small vessel ischemia. Reviewed, Interpreted and Dictated by Nidhi Heller MD Transcribed by Des Vilchis Authenticated and [facility]
--- NOTE | 2022-09-14 09:07 | PC.NURSE ---
called [facility] for ed doctor to speak to who ever is taking dr allen pts
--- NOTE | 2022-09-14 09:09 | PC.NURSE ---
spoke to dr mcnulty and let him no our er md said he would call back to speak with him once head ct was done
--- NOTE | 2022-09-14 09:38 | HMH.EDGENADL ---
Discharge Plan Disposition Patient Disposition: Home, Self-Care Chief Complaint: Recheck/Abnormal Lab/Rx Prescriptions Prescriptions: No Action colestipol 5 gram granules 5 g PO DAILY ramipril 10 mg capsule 10 mg PO DAILY Creon 36,000-114,000- 180,000 unit capsule,delayed release(DR/EC) 1 cap PO TID Rx Instructions: administer with meals and/or snacks calcium polycarbophil [FiberCon] 625 mg tablet 1,250 mg PO DAILY pravastatin 80 mg tablet 80 mg PO DAILY nadolol 20 mg tablet 20 mg PO DAILY gabapentin 400 MG capsule 400 mg PO HS fluticasone propionate 120 SPR/BOT bottle 1 spr NS DAILY Qty: 1 0RF Rx Instructions: one spray each notril daily Lokelma 10 gram powder in packet 10 g PO TID 3 Days Qty: 30 0RF Rx Instructions: for 3 days metformin 500 MG tablet 500 mg PO BID Label Comments: insulin glargine 100 UNIT/ML solution 22 units SQ BID Label Comments: aspirin 81 MG tablet,delayed release (DR/EC) 81 mg PO DAILY furosemide 20 mg tablet 20 mg PO DAILY PRN (Reason: Edema) Label Comments: TAKE 1 TABLET BY MOUTH EVERY DAY NEEDED Referrals Follow up/Referrals: Jamir Schumacher MD [Primary Care Provider] - See instructions Activity Restrictions/Add. Instructions Additional Instructions/Restrictions: We are setting up an appointment with Dr. Schumacher for you to follow-up tomorrow in clinic. Return the emergency department tonight should you have any other issues Clinical Impressions Clinical Impression: Weakness Discharge ED Provider: Khang Tejeda General Adult HPI General Chief complaint: Recheck/Abnormal Lab/Rx Stated complaint: weakness, hypokalemia Time Seen by Provider: 09/14/22 08:00 Mode of Arrival: EMS Source of Information: Patient and Spouse Limitations: Altered Mental Status Description of Symptoms (Recalled from ER Triage Doc. by RN): Pt via EMS for reported hyperkalemia, distal LE swelling, hypertension History of Present Illness HPI narrative: 82-year-old male with history of CKD hyperkalemia diabetes CHF presents with generalized weakness and concern for hyperkalemia. They said that potassium has been elevated over the last few weeks have been taking Lokelma and following up with primary care physician weekly. Today he felt more weak but he also endorsed a frontal headache dull nonradiating no numbness weakness or tingling in arms or legs. No vision changes or dizziness. No dysuria or fever. No abdominal pain or chest pain. He has pain in his right foot as well that is dull nonradiating no known trauma. Related Data Home Medications Medication Instructions Recorded Confirmed aspirin 81 mg tablet,delayed 81 mg PO DAILY Heart disease 06/23/17 09/09/22 release insulin glargine 100 unit/mL 22 units SQ BID Diabetes 06/23/17 09/09/22 subcutaneous solution metformin 500 mg tablet 500 mg PO BID Diabetes 06/23/17 09/09/22 gabapentin 400 mg capsule 400 mg PO HS Pain 02/23/19 09/09/22 calcium polycarbophil 625 mg 1,250 mg PO DAILY Diet supplement 01/15/20 09/09/22 tablet (FiberCon) [id number] 1 cap PO TID Diet supplement 01/15/20 09/09/22 36,000-114,000-180,000 unit capsule,delay rel (Creon) pravastatin 80 mg tablet 80 mg PO DAILY Cholesterol 01/29/20 09/09/22 colestipol 5 gram oral granules 5 g PO DAILY Diet supplement 03/07/20 09/09/22 nadolol 20 mg tablet 20 mg PO DAILY Blood pressure 03/05/22 09/09/22 furosemide 20 mg tablet 20 mg PO DAILY PRN Edema 06/23/22 09/09/22 ramipril 10 mg capsule 10 mg PO DAILY 07/14/22 09/09/22 Previous Rx's Medication Instructions Recorded fluticasone propionate 50 1 spr intranasal DAILY #1 ea 04/20/21 mcg/actuation nasal spray,suspension sodium zirconium cyclosilicate 10 10 g PO TID 3 days #30 ea 08/28/22 gram oral powder packet (Lokelwv) Allergies Allergy/AdvReac Type Severity Reaction
--- NOTE | 2022-09-14 10:38 | PC.NURSE ---
spoke with rad r/t ct results, states images are locked and are in line to be read
--- NOTE | 2022-09-14 10:43 | PC.NURSE ---
checked on pt at this time, pt sleeping at this time, at BS. Call light in reach
--- NOTE | 2022-09-14 11:00 | PC.NURSE ---
calling [facility] office so he can speak to stacy heck about patient
--- NOTE | 2022-09-14 11:02 | PC.NURSE ---
ED Dr. Tejeda speaking to Dr. Prado PCP coverage for potential recommendations
--- NOTE | 2022-09-14 11:05 | PC.NURSE ---
Addendum entered by TIM Mejia 09/14/22 11:08: pt has an appointment with cardiology @ 10:30 so rechuled appt time for 2:15 on 09/15/22 Original Note: calling [facility] to schedule an appointment with delores thapa @ 09/15/22 @ 10:10 am
--- NOTE | 2022-09-14 11:15 | PC.NURSE ---
Second troponin specimen sent
[2022-09-14 11:41] LABS: Troponin I 0.02 ng/ml (0.00-0.034)
== END 2022-09-14 12:09 | disposition home or self-care (01) ==
PROVIDERS: Emergency Provider Emergency Medicine; PCP Family Medicine
DX: R53.1 Weakness (principal); R94.31 Abnormal electrocardiogram [ECG] [EKG]; R51.9 Headache, unspecified
CPT/HCPCS: 70450; 71045; 73620; 80048; 80076; 83735; 83880; 84484; 85025; 93005; 96365; 96366; 99285

== ENCOUNTER → 2022-09-16 06:30 | Outpatient (CLI) | payer MEDICARE, SELFPAY ==
--- NOTE | 2022-09-16 06:33 | CA_ITS ---
APPROVED REPORT Exam: Pharmacologic Technologist: Maria Fernanda King Ht: 6 ft 3 in Wt: 203 lbs BSA: 2.21 m2 HR: 63 bpm BP: 168/78 mmHg Indications: Chest pain, abnormal ekg Medical History Medications: Amlodipine,,,,, Aspirin,,,,, Pravastatin,,,,, Metformin,,,,, Gabapentin,,,,, Vitamin D3,,,,, Ramipril,,,,, FluTICASONE,,,,, Nadolol,,,,, Glargine,,,,, FiberCON,,,,, Colestipol,,,,, Stress Test Details Test: LEXISCAN HR Resting HR: 69 bpm Max Heart Rate (APMHR): 136.748512 bpm Max HR Achieved: 78 bpm Target HR (85% APMHR): 115.608854 bpm % of APMHR: 57.35 Recovery HR: 72 bpm BP Resting BP: 168.0/78.0 mmHg Max BP: 170.0/73.0 mmHg Recovery BP: 161.0/68.0 mmHg ECG Resting ECG: Normal sinus rhythm, right bundle branch block, LAFB Clinical Exercise duration: 04:05 min Highest Stage Achieved: Exercise capacity: 1.0 METs Stress ECG Conclusion Symptoms: Mild shortness of air, stomach discomfort. No chest pain. Arrhythmias/Ectopy: None ST-T Changes: Non-diagnostic Lexiscan stress. Myoview images reported separately. Test Summary REST . . . . . . . Resting REST 09:55 . . 69 . 168/ 78 . . Stage 1 . . . . . . . Myoview Injected Stage 1 01:00 . . 73 . . . . Stage 2 01:00 . . 76 . . . . Stage 3 01:00 . . 77 . 170/ 73 . . Stage 4 01:00 . . 75 . 160/ 66 . . Stage 4 01:05 . . 75 . 160/ 66 . Stop exercise at 04:05 RECOVERY 01:00 . . 77 . . . . RECOVERY 02:00 . . 74 . 159/ 72 . . RECOVERY 03:00 . . 72 . 161/ 68 . . RECOVERY 03:18 . . 73 . 161/ 68 . . Electronically signed by : Alec Black MD 09/16/2022 18:23:24
--- NOTE | 2022-09-16 06:33 | NM_ITS ---
APPROVED REPORT Exam: Nuclear Stress Test Indication: SHORT OF BREATH..FATIGUE Patient Location: Outpatient Stress Tech: Maria Fernanda King [place] Tech:BRICE Macdonald RT(R)(N) Ht: 5 ft 9 in Wt: 185 lbs HR: 69 bpm BP: 168/78 mmHg BSA: 2.00 m2 TID: 1.16 BMI: 27.3 History: SHORT OF BREATH..FATIGUE Procedure: Patient received 0.4 mg of intravenous Lexiscan, resting heart rate 69 bpm, resting blood pressure 168/78 mmHg, with Lexiscan maximum heart rate achieved was 78 bpm which is Less than 85 % of the maximum predicted heart rate and blood pressure was 170/73 mmHg. With Lexiscan, patient denied any complaint of chest pain. The patient was unable to ;ay on his belly for the prone images. Electrocardiogram Resting electrocardiogram showed sinus rhythm right bundle branch block, with Lexiscan less than 1.[address] segment depression noted from the baseline EKG. The EKG portion of the Lexiscan is nondiagnostic. Cardiac Stress and Resting SPECT Images: Cardiac Stress and Resting SPECT images were obtained using technetium 99m Myoview 32.4 mCi stress and 10.62 mCi at rest. Gated SPECT analysis of segmental wall motion and calculation of the ejection fraction also done. Cardiac stress and rest SPECT images show uniform myocardial activity without segmental perfusion abnormality, computer derived ejection fraction is 53% with no regional wall motion abnormality, right ventricle is mildly enlarged with normal contractility. Conclusion: 1. The EKG portion of the Lexiscan is nondiagnostic. 2. No scintigraphic evidence of reversible ischemia seen, computer derived ejection fraction is 53% with no regional wall motion abnormality, right ventricle is mildly enlarged with normal contractility. 3. Normal Lexiscan Myoview study. Electronically signed by : Alec Black MD 09/16/2022 18:34:14
== END ==
PROVIDERS: PCP Family Medicine; Visit Provider Nurse Practitioner Family
DX: R06.00 Dyspnea, unspecified; R07.9 Chest pain, unspecified; K74.60 Unspecified cirrhosis of liver; N28.9 Disorder of kidney and ureter, unspecified; R60.0 Localized edema; R94.31 Abnormal electrocardiogram [ECG] [EKG]
CPT/HCPCS: 78452; 93017; A9502; J2785

== ENCOUNTER → 2022-09-28 12:42 | Outpatient (CLI) | payer MEDICARE, SELFPAY ==
[2022-09-28 14:17] LABS: Basophils # 0.1 K/mm3 (0-0.2); Basophils % 0.6 % (0.1-2.0); Eosinophils # 0.4 K/mm3 (0.0-0.4); Eosinophils % 4.7 % (0.1-12.0); Hematocrit 29.5 % (42.0-52.0); Hemoglobin 10.1 g/dL (14.1-18.0); Lymphocytes # 2.3 K/mm3 (0.7-4.5); Lymphocytes % 27.1 % (10-50); Mean Corpuscular HGB Conc 34.1 g/dL (31.8-35.4); Mean Corpuscular Hemoglobin 30.4 pg (27.0-31.2); Mean Platelet Volume 7.8 fl (7.4-10.4); Monocytes # 0.4 K/mm3 (0.1-1.0); Neutrophils # 5.4 K/mm3 (1.8-7.8); Neutrophils % 62.7 % (37.0-80.0); Platelet Count 106 K/mm3 (142-424); Red Blood Count 3.32 M/mm3 (4.60-6.20); Red Cell Distribution Width 14.3 % (11.5-17.5); White Blood Count 8.5 K/mm3 (4.8-10.8)
[2022-09-28 14:33] LABS: Alanine Aminotransferase 26 U/L (12-78); Albumin Level 3.1 g/dl (3.5-5.0); Alkaline Phosphatase 77 U/L (38-126); Anion Gap 9.5 mEq/L (5-15); Aspartate Amino Transferase 45 U/L (17-59); Bilirubin,Indirect 0.8 mg/dL (0.0-0.9); Bilirubin,Total 0.8 mg/dl (0.2-1.3); Bilirubin,Unconjugated 0.9 mg/dL (0.0-1.1); Blood Urea Nitrogen 50 mg/dl (9-20); Calcium 8.7 mg/dl (8.4-10.2); Carbon Dioxide 21 mmol/L (22.0-30.0); Chloride 112 mmol/L (98-107); Chol/HDL Ratio 3.6 (1-3.5); Cholesterol 144 mg/dl (140-200); Estimated Glomerular Filt Rate 34 ml/min (>60); GFR (African American) 41 ML/MIN (>60); Glucose 82 mg/dl (74-100); HDL Cholesterol 40 mg/dl (40-60); Magnesium 2.3 mg/dl (1.6-2.3); Potassium 5.5 mmoL/L (3.5-5.1); Sodium 137 mmol/L (136-145); Total Protein,Serum 5.7 g/dl (6.3-8.2); Triglycerides 143 mg/dl (30-150); VLDL Cholesterol 29 mg/dL (0-40)
[2022-09-28 14:44] LABS: Direct LDL Cholesterol 74.43 mg/dL (100-129)
[2022-09-28 14:49] LABS: Free T4 (Free Thyroxine) 1.12 ng/dl (0.78-2.19)
[2022-09-28 15:04] LABS: Thyroid Stimulating Hormone 1.39 uIU/mL (0.465-4.68)
== END ==
PROVIDERS: PCP Family Medicine; Visit Provider Physician Assistant
DX: E11.9 Type 2 diabetes mellitus without complications (principal); N18.9 Chronic kidney disease, unspecified; R53.1 Weakness; L60.3 Nail dystrophy; E86.0 Dehydration; Z79.4 Long term (current) use of insulin
CPT/HCPCS: 36415; 80048; 80061; 80076; 83735; 84439; 84443; 85025

== ENCOUNTER → 2022-10-05 11:15 | Outpatient (CLI) | payer MEDICARE, SELFPAY ==
[2022-10-05 12:31] LABS: Anion Gap 7.8 mEq/L (5-15); Blood Urea Nitrogen 55 mg/dl (9-20); Calcium 8.6 mg/dl (8.4-10.2); Carbon Dioxide 21 mmol/L (22.0-30.0); Chloride 111 mmol/L (98-107); Estimated Glomerular Filt Rate 27 ml/min (>60); GFR (African American) 33 ML/MIN (>60); Glucose 118 mg/dl (74-100); Potassium 4.8 mmoL/L (3.5-5.1); Sodium 135 mmol/L (136-145)
== END ==
PROVIDERS: PCP Family Medicine; Visit Provider Family Medicine
DX: N28.9 Disorder of kidney and ureter, unspecified (principal); E11.9 Type 2 diabetes mellitus without complications; Z79.4 Long term (current) use of insulin
CPT/HCPCS: 80048

== ENCOUNTER → 2022-10-12 09:59 | Outpatient (CLI) | payer MEDICARE, SELFPAY ==
[2022-10-12 14:25] LABS: Anion Gap 9.8 mEq/L (5-15); Blood Urea Nitrogen 52 mg/dl (9-20); Calcium 8.1 mg/dl (8.4-10.2); Carbon Dioxide 24 mmol/L (22.0-30.0); Chloride 107 mmol/L (98-107); Estimated Glomerular Filt Rate 29 ml/min (>60); GFR (African American) 35 ML/MIN (>60); Glucose 79 mg/dl (74-100); Magnesium 2.1 mg/dl (1.6-2.3); Potassium 4.8 mmoL/L (3.5-5.1); Sodium 136 mmol/L (136-145)
[2022-10-12 14:34] LABS: NT Pro Brain Natriuretic Pep. 1550 pg/mL (0-450)
== END ==
PROVIDERS: PCP Family Medicine; Visit Provider Family Medicine
DX: R06.02 Shortness of breath (principal)
CPT/HCPCS: 80048; 83735; 83880

== ENCOUNTER → 2022-10-20 08:24 | Outpatient (CLI) | payer MEDICARE, SELFPAY ==
--- NOTE | 2022-10-20 | CA_ITS ---
FINAL REPORT CLINICAL HISTORY: htn, Renal insufficiency FINDINGS: Aorta velocity: 140 cm/sec Right kidney: 11.1 cm. No evidence of hydronephrosis or mass. Right intrarenal RI: .76 Right renal artery velocity: 149 cm/sec. Right RAR (Renal artery-Aortic Ratio): 1.1 Left Kidney: 10.5 cm. No evidence of hydronephrosis or mass. Left intrarenal RI: 0.72 Left renal artery velocity: 144 cm/sec. Left RAR (Renal Artery-Aortic Ratio): 1.0 IMPRESSION: No evidence of significant renal artery stenosis. CT angiogram or postcontrast MR angiogram would be more sensitive for evaluation of possible renal artery stenosis. Reviewed, Interpreted and Dictated by Akhil Salazar MD Transcribed by Lucia Martinez Authenticated and [facility]
--- NOTE | 2022-10-20 08:37 | US_ITS ---
FINAL REPORT CLINICAL HISTORY: cirrhosis FINDINGS: ULTRASOUND RIGHT UPPER QUADRANT Sonographic imaging of the right upper quadrant was obtained. The pancreas is partially obscured. The liver is nodular with a coarsened echotexture concerning for cirrhosis. The gallbladder is surgically absent. The common duct is normal at 4 mm. The spleen measures at the upper limits of normal. The right kidney measures 13 cm in length. There is a right renal cyst measuring 2.0 x 1.7 cm. IMPRESSION: Nodular liver with coarsened echotexture concerning for cirrhosis. Spleen is at the upper limits of normal in size. Right renal cyst. Reviewed, Interpreted and Dictated by Akhil Salazar MD Transcribed by Shonna Alas Authenticated and [facility]
--- NOTE | 2022-10-20 08:39 | US_ITS ---
FINAL REPORT CLINICAL HISTORY: RENAL INSUFFICIENCY FINDINGS: RENAL ULTRASOUND Ultrasound images of the kidneys were obtained. The right kidney measures 13.4 cm in length. It is normal echogenicity. There is no hydronephrosis. There is a 2.0 cm cyst. The left kidney measures 10.2 cm in length. It is normal echogenicity. There is no hydronephrosis. IMPRESSION: Right renal cyst. Reviewed, Interpreted and Dictated by Akhil Salazar MD Transcribed by Shonna Alas Authenticated and [facility]
[2022-10-20 10:34] LABS: Ammonia 33 umol/L (9-30); INR 1.08 (0.9-1.1); Prothrombin Time 11.6 seconds (10.1-12.5)
[2022-10-20 10:45] LABS: Chloride 106 mmol/L (98-107); Potassium 5.3 mmoL/L (3.5-5.1); Sodium 139 mmol/L (136-145)
[2022-10-20 10:46] LABS: Alanine Aminotransferase 25 U/L (12-78); Albumin Level 2.8 g/dl (3.5-5.0); Albumin/Globulin Ratio 1.1 (1.1-1.8); Alkaline Phosphatase 71 U/L (38-126); Anion Gap 13.3 mEq/L (5-15); Aspartate Amino Transferase 43 U/L (17-59); Bilirubin,Total 0.7 mg/dl (0.2-1.3); Blood Urea Nitrogen 43 mg/dl (9-20); Carbon Dioxide 25 mmol/L (22.0-30.0); Estimated Glomerular Filt Rate 30 ml/min (>60); GFR (African American) 37 ML/MIN (>60); Globulin 2.6 g/dL (1.3-3.2); Glucose 87 mg/dl (74-100); Iron 104 ug/dL (49-181); Total Protein,Serum 5.4 g/dl (6.3-8.2)
[2022-10-20 10:47] LABS: Basophils % 0.3 % (0.1-2.0); Calcium 8.8 mg/dl (8.4-10.2); Eosinophils # 0.3 K/mm3 (0.0-0.4); Eosinophils % 4.6 % (0.1-12.0); Hematocrit 26.1 % (42.0-52.0); Hemoglobin 8.8 g/dL (14.1-18.0); Lymphocytes # 1.7 K/mm3 (0.7-4.5); Lymphocytes % 28.9 % (10-50); Mean Corpuscular HGB Conc 33.6 g/dL (31.8-35.4); Mean Corpuscular Hemoglobin 30.8 pg (27.0-31.2); Mean Corpuscular Volume 91.4 fl (80-94); Mean Platelet Volume 8.4 fl (7.4-10.4); Monocytes # 0.4 K/mm3 (0.1-1.0); Monocytes % 6.5 % (1.7-9.3); Neutrophils # 3.4 K/mm3 (1.8-7.8); Neutrophils % 59.7 % (37.0-80.0); Platelet Count 91 K/mm3 (142-424); Red Blood Count 2.85 M/mm3 (4.60-6.20); Red Cell Distribution Width 14.5 % (11.5-17.5); White Blood Count 5.8 K/mm3 (4.8-10.8)
[2022-10-20 10:56] LABS: Total Iron Binding Capacity 218 ug/dL (261-462)
[2022-10-20 11:23] LABS: Ferritin 246 ng/ml (17.9-464)
[2022-10-21 10:05] LABS: AFP, Tumor Marker 2.2 ng/mL (0.0-6.4)
== END ==
PROVIDERS: PCP Family Medicine; Visit Provider Nurse Practitioner Family
DX: N28.9 Disorder of kidney and ureter, unspecified (principal); I10 Essential (primary) hypertension; K76.9 Liver disease, unspecified; K74.60 Unspecified cirrhosis of liver
CPT/HCPCS: 36415; 76705; 76770; 80053; 82105; 82140; 82728; 83540; 83550; 85025; 85610; 93976

== ENCOUNTER → 2022-11-06 10:04 | Outpatient (CLI) | payer MEDICARE, SELFPAY ==
[2022-11-06 10:39] LABS: Basophils % 0.6 % (0.1-2.0); Eosinophils # 0.3 K/mm3 (0.0-0.4); Eosinophils % 6.5 % (0.1-12.0); Hematocrit 23.9 % (42.0-52.0); Hemoglobin 8.1 g/dL (14.1-18.0); Lymphocytes # 1.4 K/mm3 (0.7-4.5); Lymphocytes % 28.1 % (10-50); Mean Corpuscular Hemoglobin 31.9 pg (27.0-31.2); Mean Corpuscular Volume 93.9 fl (80-94); Mean Platelet Volume 8.3 fl (7.4-10.4); Monocytes # 0.4 K/mm3 (0.1-1.0); Monocytes % 8.8 % (1.7-9.3); Neutrophils # 2.8 K/mm3 (1.8-7.8); Platelet Count 95 K/mm3 (142-424); Red Blood Count 2.55 M/mm3 (4.60-6.20); Red Cell Distribution Width 14.5 % (11.5-17.5)
[2022-11-06 11:31] LABS: Anion Gap 15.7 mEq/L (5-15); Blood Urea Nitrogen 44 mg/dl (9-20); Calcium 8.4 mg/dl (8.4-10.2); Carbon Dioxide 20 mmol/L (22.0-30.0); Chloride 108 mmol/L (98-107); Estimated Glomerular Filt Rate 29 ml/min (>60); GFR (African American) 35 ML/MIN (>60); Glucose 132 mg/dl (74-100); Magnesium 2.2 mg/dl (1.6-2.3); Potassium 5.7 mmoL/L (3.5-5.1); Sodium 138 mmol/L (136-145)
== END ==
PROVIDERS: PCP Family Medicine; Visit Provider Physician Assistant
DX: N18.9 Chronic kidney disease, unspecified (principal)
CPT/HCPCS: 36415; 80048; 83735; 85025

== ENCOUNTER 2022-11-25 09:51 | Outpatient (CLI) | payer MEDICARE, SELFPAY ==
[2022-11-25] VITALS (11 sets, daily range): BP systolic 135–181; BP diastolic 72–93; PULSE 56–63; RESP 18; TEMP 36.3–36.6; O2SAT 97–98; BMI 25.7
[2022-11-25 13:55] LABS: Hematocrit 23.2 % (42.0-52.0); Hemoglobin 7.6 g/dL (14.1-18.0)
--- NOTE | 2022-11-25 14:05 | PC.NURSE ---
1 unit PRBC ordered per Lucia Cleary APRN for symptomatic anemia. pt c/o fatigue, SOB, and weakness. Hgb today was 7.6.
[2022-11-25 15:50] LABS: Hematocrit 24.9 % (42.0-52.0); Hemoglobin 8.3 g/dL (14.1-18.0)
== END 2022-11-25 15:40 | disposition home or self-care (01) ==
LOC: INF 09:52
PROVIDERS: Nurse Practitioner Family; PCP Family Medicine; Visit Provider Physician Assistant
DX: R06.02 Shortness of breath (principal); D64.9 Anemia, unspecified; R53.83 Other fatigue; R53.1 Weakness
CPT/HCPCS: 36430; 85014; 85018; 86850; P9016

== ENCOUNTER → 2022-11-27 09:56 | Outpatient (CLI) | payer MEDICARE, SELFPAY ==
[2022-11-27 11:09] LABS: Alanine Aminotransferase 28 U/L (12-78); Albumin Level 3.1 g/dl (3.5-5.0); Albumin/Globulin Ratio 1.1 (1.1-1.8); Alkaline Phosphatase 73 U/L (38-126); Anion Gap 13.7 mEq/L (5-15); Aspartate Amino Transferase 48 U/L (17-59); Bilirubin,Total 0.7 mg/dl (0.2-1.3); Blood Urea Nitrogen 51 mg/dl (9-20); Calcium 8.5 mg/dl (8.4-10.2); Carbon Dioxide 21 mmol/L (22.0-30.0); Chloride 108 mmol/L (98-107); Estimated Glomerular Filt Rate 34 ml/min (>60); GFR (African American) 41 ML/MIN (>60); Globulin 2.8 g/dL (1.3-3.2); Glucose 170 mg/dl (74-100); Potassium 5.7 mmoL/L (3.5-5.1); Sodium 137 mmol/L (136-145); Total Protein,Serum 5.9 g/dl (6.3-8.2)
== END ==
PROVIDERS: PCP Family Medicine; Visit Provider Nurse Practitioner Family
DX: E87.5 Hyperkalemia (principal)
CPT/HCPCS: 36415; 80053

== ENCOUNTER → 2022-12-16 10:45 | Outpatient (CLI) | payer MEDICARE, SELFPAY ==
[2022-12-16 11:30] LABS: Potassium 5.4 mmoL/L (3.5-5.1)
== END ==
PROVIDERS: PCP Family Medicine; Visit Provider Nurse Practitioner Family
DX: E87.5 Hyperkalemia (principal)
CPT/HCPCS: 36415; 84132